=== PATIENT | female | born 1990 | race Caucasian/White ===

== ENCOUNTER 2017-10-14 05:34 | Outpatient (CLI) | payer MEDICAID ==
[~2017-10-14] VITALS: Ht 158.8 cm; Wt 70.3 kg
[2017-10-14] MEDS ORDERED: LEVO112T2 PO (11:57)
[2017-10-14] MEDS ORDERED: LINA72CA PO (11:57)
[2017-10-14] MEDS ORDERED: TOPI100T PO (11:57)
[2017-10-14] MEDS ORDERED: NORG1TAB15 PO (11:57)
[2017-10-19] MEDS ORDERED: OXYC-471 PO (12:27)
[2017-10-19] MEDS ORDERED: IBUP-1780 PO (12:29)
== END 2017-10-14 12:35 ==
LOC: PREOP 05:34
PROVIDERS: ATTEND Obstetrics & Gynecology
DX: Z01.818 Encounter for other preprocedural examination (principal); N80.6 Endometriosis in cutaneous scar; D64.9 Anemia, unspecified

== ENCOUNTER 2017-10-19 10:37 | Day surgery (SDC) | payer MEDICAID ==
[~2017-10-19] VITALS: Ht 158.8 cm; Wt 70.3 kg
[~2017-10-19 10:37] MED LIST: LEVO112T2 PO; LINA72CA PO; NORG1TAB15 PO; TOPI100T PO
[2017-10-19 10:41] VITALS: BP 144/83
--- OUTSIDE RECORDS SUMMARY | 2017-10-19 10:48 | XMS REPORT ---
Author Author Mary Garza [facility] Address [address] [place], [place] [id number] Care Team Providers Care Road Grader Name Role Phone Mary Garza PCP Unavailable WILBERT KOROMA PreferredProvider Unavailable Allergies and Adverse Reactions Name Reaction Notes NO KNOWN DRUG ALLERGIES Plan of Treatment Not available. 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 topiramate 50 mg oral tablet 03/29/2016 TAKE 1 TABLET BY MOUTH DAILY IN THE MORNING AND TAKE 1 AND 1/2 TABLETS DAILY AT BEDTIME CAN ADJUST DISCUSSED Tri-Sprintec (28) 0.18/0.215/0.25 mg-35 mcg (28) oral tablet 05/30/20162017 take 1 tablet by oral route once daily for 84 days topiramate 50 mg oral tablet 10/07/2016 TAKE 1 TABLET BY MOUTH EVERY MORNING AND 1 AND 1/2 TABLETS AT BEDTIME . DOSAGE CAN BE ADJUSTED DISCUSSED Name Start Date Expiration Date SIG Comments doxycycline hyclate 100 mg oral capsule 07/26/2010 08/05/2010 take 1 capsule ( 100 mg) by oral route every 12 hours for 10 days Tri-Sprintec (28) 0.18/0.215/0.25 mg-35 mcg (28) oral tablet take 1 tablet by oral route once daily Zithromax 250 mg oral tablet 09/02/2011 09/07/2011 take 2 tablets (500 mg) by oral route once daily for 1 day then 1 tablet (250 mg) by oral route once daily for 4 days Wellbutrin XL 150 mg oral tablet extended release 24 hr 01/29/2012 take 1 tablet (150 mg) by oral route once daily promethazine-codeine 6.25-10 mg/5 mL oral syrup 03/18/2012 take 5 milliliters by oral route every 6 hours as needed, not to exceed 30 mL in 24 hours Flonase 50 mcg/actuation nasal spray,suspension 03/18/2012 inhale 1 spray (50 mcg) in each nostril by intranasal route 2 times per day Zithromax Z-Jerrell 250 mg oral tablet 03/18/2012 03/23/2012 take 2 tablets ( 500 mg) by oral route once daily for 1 day then 1 tablet (250 mg) by oral route once daily for 4 days bupropion HCl 150 mg oral tablet extended release 24 hr 04/05/2012 05/05/2012 TAKE ONE TABLET BY MOUTH EVERY DAY Zithromax 250 mg oral tablet 06/07/2012 06/12/2012 take 2 tablets (500 mg) by oral route once daily for 1 day then 1 tablet (250 mg) by oral route once daily for 4 days levothyroxine 112 mcg oral tablet 12/17/2012 01/16/2013 TAKE ONE TABLET BY MOUTH EVERY DAY Tri-Sprintec (28) 0.18/0.215/0.25 mg-35 mcg (28) oral tablet 12/05/20132013 take 1 tablet by oral route once daily for 28 days Diflucan 150 mg oral tablet 04/17/2014 04/18/2014 take 1 tablet (150 mg) by oral route once for 1 day Zorvolex 35 mg oral capsule 05/30/2016 08/28/2016 take 1 capsule (35 mg) by oral route 3 times per day for 90 days Discontinued Name Start Date Discontinued Date SIG Comments triamcinolone acetonide 0.1 % topical cream 07/26/2010 09/02/2011 apply a thin layer to the affected area(s) by topical route 3 times per day ibuprofen 800 mg oral tablet 12/30/2012 01/13/2013 take 1 tablet (800 mg) by oral route 3 times per day with food prn pain Macrobid 100 mg oral capsule 04/10/2014 04/17/2014 take 1 capsule (100 mg) by oral route 2 times per day with food for 7 days cetirizine-pseudoephedrine 5-120 mg oral tablet extended release 12 hr 201504/08/2016 take 1 tablet by oral route 2 times per day Problem List Description Status Onset Hypothyroidism Active Abnormal Uterine Bleeding Active 09/2011 Migraine Active 04/19/2015 Headache Active 04/19/2015 Vital Signs Date Time BP-Sys(mm[Hg] BP-Mansi(mm[Hg]) HR(bpm) RR(rpm) Temp WT HT HC BMI BSA BMI Percentile O2 Sat(%) 05/30/2016 11:07:00 AM 119 mmHg 82 mmHg 79 bpm 97.3 F 157 lbs 62 in 28.72 kg/m2 1.76 m2 04/14/2016 3:36:00 PM 137 mmHg 64 mmHg 66 bpm 98.6 F 156 lbs 62 in 28.5325 kg/m 1.7594 m 04/08/2016 9:31:00 AM 124 mmHg 74 mmHg 69 bpm 98.1 F 156 lbs 62 in 28.53 kg/m2 1.76 m2 02/20/2016 10:33:00 AM 120 mmHg 72 mmHg 63 bpm 16 rpm 96.4 F 153 lbs 62 in 27.9838 kg/m 1.7424 m 100 % 07/02/2015 4:37:00 PM 63 bpm 20 rpm 97.6 F 160 lbs 63 in 28.34 kg /m2 1.80 m2 100 % 05/30/2015 3:47:00 PM 110 mmHg 80 mmHg 80 bpm 18 rpm 97.3 F 165 lbs 63 in 29.2281 kg/m 1.8239 m 100 % 04/18/2015 1:18:00 PM 100 mmHg 60 mmHg 65 bpm 18 rpm 97.5 F 165.75 lbs 63 in 29.36 kg/m2 1.83 m2 100 % 04/17/2014 3:17:00 PM 129 mmHg 79 mmHg 77 bpm 98.8 F 174 lbs 63 in 30.8224 kg/m 1.873 m 04/10/2014 11:42:00 AM 125 mmHg 83 mmHg 86 bpm 98.2 F 174 lbs 63 in 30.82 kg/m2 1.87 m2 01/13/2013 4:14:00 PM 127 mmHg 76 mmHg 64 bpm 97.7 F 170 lbs 63 in 30.1138 kg/m 1.8514 m 12/30/2012 11:29:00 AM 124 mmHg 70 mmHg 66 bpm 98 F 170 lbs 63 in 30.11 kg/m2 1.85 m2 12/09/2012 4:15:00 PM 120 mmHg 70 mmHg 62 bpm 98 F 170.125 lbs 63 in 30.136 kg/m 1.8521 m 10/28/2012 4:24:00 PM 125 mmHg 70 mmHg 62 bpm 96.7 F 169 lbs 63 in 29.94 kg/m2 1.85 m2 10/07/2012 9:12:00 AM 130 mmHg 74 mmHg 74 bpm 97.6 F 170 lbs 63 in 30.1138 kg/m 1.8514 m 06/07/2012 9:45:00 AM 108 mmHg 64 mmHg 90 bpm 18 rpm 96.5 F 177 lbs 63 in 31.35 kg/m2 1.89 m2 100 % 03/18/2012 10:01:00 AM 114 mmHg 74 mmHg 79 bpm 18 rpm 96.4 F 178 lbs 63 in 31.531 kg/m 1.8944 m 99 % 01/29/2012 8:33:00 AM 124 mmHg 80 mmHg 92 bpm 18 rpm 97.5 F 180 lbs 63 in 31.89 kg/m2 1.91 m2 98 % 11/04/2011 2:38:00 PM 118 mmHg 67 mmHg 71 bpm 18 rpm 97.8 F 173.5 lbs 63 in 30.7338 kg/m 1.8703 m 98 % 09/02/2011 2:43:00 PM 120 mmHg 74 mmHg 70 bpm 20 rpm 96.7 F 173 lbs 63 in 30.65 kg/m2 1.87 m2 98 % 07/26/2010 9:33:00 AM 110 mmHg 60 mmHg 102 bpm 22 rpm 96.4 F 158 lbs 63 in 27.9882 kg/m 1.7848 m 98 % Social History Name Description Comments Tobacco Former smoker Alcohol Current some day social use [place] [facility] [employer] History of Procedures Date Ordered Description Order Status 04/25/2015 12:00 AM LIPID PANEL Reviewed 04/25/2015 12:00 AM URINALYSIS AUTO W/O SCOPE Reviewed 04/25/2015 12:00 AM GENERAL HEALTH PANEL Reviewed 04/25/2015 8:39 AM URINALYSIS AUTO W/O SCOPE Reviewed 03/03/2016 12:00 AM Employment Physical Reviewed 04/08/2016 10:04 AM URINE TEST Reviewed 04/08/2016 12:00 AM US EXAM PELVIC COMPLETE Reviewed 04/11/2016 12:00 AM US EXAM PELVIC COMPLETE Reviewed 04/11/2016 12:00 AM TRANSVAGINAL US NON-OB Reviewed 06/02/2016 12:00 AM US EXAM PELVIC COMPLETE Reviewed 06/02/2016 12:00 AM TRANSVAGINAL US NON-OB Reviewed 05/30/2016 12:00 AM SPECIMEN HANDLING OFFICE-LAB Reviewed 05/30/2016 12:00 AM CYTOPATH C/V THIN LAYER Reviewed 05/30/2016 12:00 AM US EXAM PELVIC COMPLETE Reviewed 11/04/2011 12:00 AM COMPLETE CBC W/AUTO DIFF WBC Reviewed 11/04/2011 12:00 AM COMPREHEN METABOLIC PANEL Reviewed 11/04/2011 12:00 AM LIPID PANEL Reviewed 11/04/2011 12:00 AM FREE ASSAY (FT-3) Reviewed 11/04/2011 12:00 AM ASSAY THYROID STIM HORMONE Reviewed 11/04/2011 12:00 AM URINALYSIS NONAUTO W/SCOPE Reviewed 11/04/2011 12:00 AM URINE TEST Reviewed 11/05/2011 12:00 AM GENERAL HEALTH PANEL Reviewed 11/05/2011 12:00 AM LIPID PANEL Reviewed 11/05/2011 12:00 AM ASSAY OF THYROID (T3 OR T4) Reviewed 11/05/2011 12:00 AM CHORIONIC GONADOTROPIN ASSAY Reviewed 11/07/2016 12:00 AM URINALYSIS AUTO W/SCOPE Reviewed 12/23/2011 12:00 AM ASSAY THYROID STIM HORMONE Reviewed 12/23/2011 12:00 AM ASSAY OF FREE THYROXINE Reviewed 02/12/2012 12:00 AM ROUTINE VENIPUNCTURE Reviewed 02/12/2012 12:00 AM CHORIONIC GONADOTROPIN ASSAY Reviewed 10/07/2012 12:00 AM ASSAY OF GONADOTROPIN (FSH) Reviewed 10/07/2012 12:00 AM ASSAY OF PROLACTIN Reviewed 10/07/2012 12:00 AM ASSAY THYROID STIM HORMONE Reviewed 10/07/2012 12:00 AM CYTOPATH TBS C/V MANUAL Reviewed 10/07/2012 12:00 AM SPECIMEN HANDLING OFFICE-LAB Reviewed 10/07/2012 12:00 AM CHYLMD TRACH DNA AMP PROBE Reviewed 10/07/2012 12:00 AM N.GONORRHOEAE DNA AMP PROB Reviewed 10/28/2012 12:00 AM URINE TEST Reviewed 10/28/2012 12:00 AM INSERT INTRAUTERINE DEVICE Reviewed 12/22/2012 12:00 AM US EXAM PELVIC COMPLETE Reviewed 12/30/2012 12:00 AM URINALYSIS AUTO W/SCOPE Reviewed 12/30/2012 12:00 AM CHYLMD TRACH DNA AMP PROBE Reviewed 12/30/2012 12:00 AM N.GONORRHOEAE DNA AMP PROB Reviewed 01/13/2013 12:00 AM REMOVE INTRAUTERINE DEVICE Reviewed 04/10/2014 12:00 AM URINALYSIS NONAUTO W/SCOPE Reviewed 04/17/2014 12:00 AM US EXAM PELVIC COMPLETE Reviewed 04/17/2014 12:00 AM SPECIMEN HANDLING OFFICE-LAB Reviewed 04/17/2014 12:00 AM CYTOPATH C/V THIN LAYER Reviewed 07/26/2010 12:00 AM TD VACCINE NO PRSRV 7/> IM Reviewed 07/26/2010 12:00 AM IMMUNIZATION ADMIN Reviewed Results Summary Date and Description Results 11/05/2011 2:54 PM WBC 7.4 RBC 4.91 HGB 13.90 g/dLHCT 41.0 %MCV 84.0 fLMCH 28.30 pgMCHC 33.90 g/dLRDW SD 38 RDW CV 12.60 %MPV 10.20 fLPLT 282 NRBC# 0.00 NRBC% 0.0 %NEUT 54.0 %%LYMP 32.10 %%MONO 8.30 %%EOS 5.30 %%BASO 0.30 %#NEUT 3.97 #LYMP 2.36 #MONO 0.61 #EOS 0.39 #BASO 0.02 MANUAL DIFF NOT IND GLUCOSE 104.0 mg/dLSODIUM 140.0 mmol/LPOTASSIUM 4.20 mmol/LCHLORIDE 109.0 mmol/LCO2 22.0 mmol/LBUN 13.0 mg/dLCREATININE 0.70 mg/dLSGOT/AST 14.0 IU/LSGPT/ALT 19.0 IU /LALK PHOS 71.0 IU/LTOTAL PROTEIN 7.0 g/dLALBUMIN 4.30 g/dLTOTAL BILI 0.40 mg/ dLCALCIUM 9.20 mg/dLAGE 21 GFR NonAA 104 GFR AA 126 eGFR 60 eGFR AA* 60 TRIGLYCERIDES 99.0 mg/dLCHOLESTEROL 190.0 mg/dLHDL 57.0 mg/dLTOT CHOL/HDL 3.3 LDL (CALC) 113.0 mg/dLT3 TOTAL 86.0 ng/dLTSH < 0.06 mIU/LRECHECKED VERIFIED BY REPEAT ANALYSIS TEST NEGATIVE FREE T4 1.01 12/23/2011 1:39 PM FREE T4 1.61 TSH 0.320 uIU/mL 02/12/2012 2:53 PM TEST NEGATIVE 10/07/2012 10:24 AM TSH 1.020 uIU/mLFSH 11.0 mIU/mL 12/30/2012 4:09 PM COLOR YELLOW APPEARANCE CLEAR SPEC GRAV 1.025 pH 6.0 PROTEIN NEGATIVE GLUCOSE NEGATIVE KETONE NEGATIVE BILIRUBIN NEGATIVE BLOOD NEGATIVE NITRITE NEGATIVE LEUK SCREEN NEGATIVE WBC/HPF RARE RBC/HPF NEGATIVE CASTS/LPF NEGATIVE CRYSTALS NEGATIVE MUCOUS THRDS NEGATIVE BACTERIA FEW EPITH CELLS FEW SQUAMOUS TRICHOMONAS NEGATIVE YEAST NEGATIVE CULT SET UP? NO 04/10/2014 3:51 PM COLOR YELLOW APPEARANCE HAZY SPEC GRAV <=1.005 pH 6.0 PROTEIN NEGATIVE GLUCOSE NEGATIVE KETONE NEGATIVE BILIRUBIN NEGATIVE BLOOD LARGE NITRITE NEGATIVE LEUK SCREEN SMALL WBC/HPF 10-20 RBC/HPF 0-5 CASTS/LPF NEGATIVE CRYSTALS NEGATIVE MUCOUS THRDS NEGATIVE BACTERIA 2++ EPITH CELLS 1+ SQUAMOUS TRICHOMONAS NEGATIVE YEAST NEGATIVE CULT SET UP? YES 04/25/2015 8:39 AM Clarity Ur clear Color Ur light yellow Glucose Ur-sCnc neg Bilirub Ur Ql Strip neg Ketones Ur Ql Strip neg Sp Gr Ur Qn 1.010 Hgb Ur Ql Strip neg pH Ur-LsCnc 7.0 Prot Ur Ql Strip neg Urobilinogen Ur-mCnc 0.2 Nitrite Ur Ql Strip neg WBC Est Ur Ql Strip neg 04/25/2015 3:26 PM GLUCOSE 94.0 mg/dLSODIUM 137.0 mmol/LPOTASSIUM 4.40 mmol/ LCHLORIDE 108.0 mmol/LCO2 20.0 mmol/LBUN 12.0 mg/dLCREATININE 0.70 mg/dLSGOT/ AST 9.0 IU/LSGPT/ALT 11.0 IU/LALK PHOS 46.0 IU/LTOTAL PROTEIN 6.60 g/dLALBUMIN 4.30 g/dLTOTAL BILI 0.50 mg/dLCALCIUM 9.10 mg/dLAGE 25 GFR NonAA 100 GFR AA 121 eGFR >60 mL/min/1.73meGFR AA* >60 TSH 0.150 uIU/mLTRIGLYCERIDES 202.0 mg/ dLCHOLESTEROL 197.0 mg/dLHDL 52.0 mg/dLTOT CHOL/HDL 3.8 LDL (CALC) 105.0 mg/ dLFREE T4 1.48 WBC 7.4 RBC 4.62 HGB 13.50 g/dLHCT 40.30 %MCV 87.0 fLMCH 29.20 pgMCHC 33.50 g/dLRDW SD 41 RDW CV 12.60 %MPV 10.30 fLPLT 266 NRBC# 0.00 NRBC% 0.0 %NEUT 63.60 %%LYMP 27.60 %%MONO 5.80 %%EOS 2.70 %%BASO 0.30 %#NEUT 4.69 # LYMP 2.04 #MONO 0.43 #EOS 0.20 #BASO 0.02 MANUAL DIFF NOT IND 02/20/2016 9:45 AM WBC 6.5 RBC 4.61 HGB 13.30 g/dLHCT 40.30 %MCV 87.0 fLMCH 28.90 pgMCHC 33.0 g/dLRDW SD 40 RDW CV 12.50 %MPV 8.90 fLPLT 264 NRBC# 0.00 NRBC % 0.0 GLUCOSE 100.0 mg/dLSODIUM 140.0 mmol/LPOTASSIUM 4.30 mmol/LCHLORIDE 110.0 mmol/LCO2 21.0 mmol/LBUN 14.0 mg/dLCREATININE 0.90 mg/dLSGOT/AST 12.0 IU/LSGPT/ ALT 7.0 IU/LALK PHOS 51.0 IU/LTOTAL PROTEIN 7.40 g/dLALBUMIN 4.20 g/dLTOTAL BILI 0.50 mg/dLCALCIUM 9.10 mg/dLAGE 26 GFR NonAA 75 GFR AA 91 eGFR >60 mL/min/ 1.73meGFR AA* >60 TRIGLYCERIDES 202.0 mg/dLCHOLESTEROL 217.0 mg/dLHDL 59.0 mg/ dLTOT CHOL/HDL 3.7 LDL (CALC) 118.0 mg/dLVaricella Zoster IgG 1456.0 IndexRubella Antibodies, IgG 15.50 IndexRubeola Ab, IgG >300.0 IndexMumps Abs, IgG 91.5 AU/ml 02/20/2016 9:49 AM COLOR YELLOW APPEARANCE CLEAR SPEC GRAV 1.025 pH 6.0 PROTEIN NEGATIVE GLUCOSE NEGATIVE mg/dLKETONE NEGATIVE BILIRUBIN NEGATIVE BLOOD NEGATIVE NITRITE NEGATIVE LEUK SCREEN MODERATE MICRO IND? SEE BELOW WBC/HPF 10- 20 RBC/HPF RARE CASTS/LPF NEGATIVE /LPFCRYSTALS NEGATIVE MUCOUS THRDS NEGATIVE BACTERIA FEW EPITH CELLS 2++ SQUAMOUS /HPFTRICHOMONAS NEGATIVE YEAST NEGATIVE 04/08/2016 10:04 AM Test, Urine negative 11/07/2016 9:39 AM COLOR YELLOW APPEARANCE CLEAR SPEC GRAV <=1.005 pH 5.5 PROTEIN NEGATIVE GLUCOSE NEGATIVE mg/dLKETONE NEGATIVE BILIRUBIN NEGATIVE BLOOD SMALL NITRITE NEGATIVE LEUK SCREEN SMALL MICRO INDICATED? SEE BELOW WBC/HPF RARE RBC/HPF NEGATIVE CASTS/LPF NEGATIVE /LPFCRYSTALS NEGATIVE MUCOUS THRDS NEGATIVE BACTERIA NEGATIVE EPITH CELLS NEGATIVE /HPFTRICHOMONAS NEGATIVE YEAST NEGATIVE CULT SET UP? 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 07/26/2010 02/15/2008 999 History of Past Illness Name Date of Onset Comments Hypothyroidism Abnormal Uterine Bleeding 09/2011 Migraine 04/19/2015 Headache 04/19/2015 Insect bite, Infected Jul 26 2010 9:36AM Sinusitis, Acute Sep 02 2011 2:50PM Pharyngitis, Acute Sep 02 2011 2:50PM Hypothyroidism Nov 04 2011 2:42PM Fatigue Nov 04 2011 2:42PM Weight Gain Nov 04 2011 2:42PM Hypothyroidism, Acquired Nov 05 2011 8:17AM Fatigue Nov 05 2011 8:17AM Hypothyroidism, Acquired Dec 23 2011 1:10PM Depression Jan 29 2012 8:35AM Amenorrhea, Rule Out Feb 12 2012 8:13AM Upper Respiratory Infection Mar 18 2012 10:00AM Upper Respiratory Infection Jun 07 2012 9:47AM Gynecological Exam Oct 07 2012 9:26AM Abnormal Uterine Bleeding Oct 07 2012 9:26AM Special investigations and examinations; examination or test; examination or test, negative result Oct 28 2012 4:56PM IUD insertion Oct 28 2012 4:55PM IUD Check/Removal/Management/Reinsertion Dec 09 2012 4:20PM Pelvic Pain Dec 13 2012 11:26AM Pelvic Pain Dec 30 2012 11:33AM Contraceptive Counseling Dec 30 2012 11:33AM Pelvic Pain Dec 30 2012 12:26PM IUD removal Jan 13 2013 4:25PM Urinary Tract Infection Apr 10 2014 11:45AM Dysuria Apr 10 2014 11:45AM Pelvic Pain Apr 12 2014 9:36AM Ovarian Cyst Apr 12 2014 9:36AM Routine gynecological examination Apr 17 2014 3:19PM Candidal Vaginitis Apr 17 2014 3:19PM Contraception, Oral Prescription Apr 17 2014 3:19PM Contraceptive management Apr 17 2014 3:19PM Headache Apr 18 2015 1:22PM Migraine Apr 18 2015 1:22PM Hypothyroidism, Acquired Apr 25 2015 8:28AM Dysuria Apr 25 2015 8:28AM Headache Apr 25 2015 8:28AM Dysuria Apr 25 2015 8:39AM Headache May 30 2015 3:49PM Migraine May 30 2015 3:49PM Hypothyroidism May 30 2015 3:49PM Headache Jul 02 2015 4:38PM Migraine Jul 02 2015 4:38PM Hypothyroidism Jul 02 2015 4:38PM Pre-employment exam, encounter for Feb 20 2016 10:34AM Adnexal tenderness, right Apr 08 2016 9:37AM Female pelvic pain Apr 08 2016 10:06AM Cyst of ovary, right Apr 14 2016 3:38PM Routine gynecological examination May 30 2016 11:13AM Pelvic and perineal pain May 30 2016 11:27AM Other chronic pain May 30 2016 11:27AM Contraceptive management May 30 2016 11:13AM Pelvic and perineal pain May 30 2016 11:13AM Other chronic pain May 30 2016 11:13AM Dysuria Nov 07 2016 9:12AM Payers Insurance Name Company Name Plan Name Plan Number Policy Number Policy Group Number Start Date [employer] [facility] [id number] N/A [employer] [facility] [id number] Monday, 2010 [employer] [facility] [id number] N/A [facility] [id number] December [facility] [id number] N/A History of Encounters Visit Date Visit Type Provider 05/30/2016 Office visit Mary Garza [employer] EXECUTIVE 04/14/2016 Office visit Mary Garza [employer] ACCOUNT EXECUTIVE 04/08/2016 Office visit Mary MFinn Garza [employer]ES ACCOUNT EXECUTIVE 02/20/2016 Office visit Dougie Rahman [employer] ACCOUNT EXECUTIVE 07/02/2015 Office visit WILBERT KOROMA [employer]ES ACCOUNT EXECUTIVE 05/30/2015 Office visit WILBERT KOROMA COMMER[employer]ES ACCOUNT EXECUTIVE 04/25/2015 Laboratory WILBERT KOROMA COMMERCIAL [employer]ES ACCOUNT EXECUTIVE 04/18/2015 Office visit WILBERT KOROMA COMMERCIAL LINES ACCOUNT EXECUTIVE 04/17/2014 Office visit Mary Garza [employer]ER[employer]ES ACCOUNT EXECUTIVE 04/10/2014 Office visit Mary Garza COMMERCIAL [employer]ES ACCOUNT EXECUTIVE 01/13/2013 Office visit Pasquale Pagan MD 12/30/2012 Office visit Pasquale Pagan MD 12/09/2012 Office visit Mary Garza [employer] ACCOUNT EXECUTIVE 10/28/2012 Office visit Pasquale Pagan MD 10/07/2012 Office visit Pasquale Pagan MD 06/07/2012 Office visit WILBERT KOROMA [employer] ACCOUNT EXECUTIVE 03/18/2012 Office visit WILBERT KOROMA [employer]ER[employer]ES ACCOUNT EXECUTIVE 02/12/2012 Laboratory WILBERT KOROMA [employer] ACCOUNT EXECUTIVE 01/29/2012 Office visit WILBERT KOROMA [employer]ER[employer]ES ACCOUNT EXECUTIVE 12/23/2011 Laboratory WILBERT KOROMA [employer]ERCIAL [employer]ES ACCOUNT EXECUTIVE 11/05/2011 Laboratory WILBERT KOROMA COMMERCIAL [employer]ES ACCOUNT EXECUTIVE 11/04/2011 Office visit WILBERT KOROMA COMMERCIAL LINES ACCOUNT EXECUTIVE 09/02/2011 Office visit WILBERT KOROMA COMMERCIAL LINES ACCOUNT EXECUTIVE 07/26/2010 Office visit Wilbert Koroma COMMERCIAL LINES ACCOUNT EXECUTIVE
--- OUTSIDE RECORDS SUMMARY | 2017-10-19 10:48 | XMS REPORT ---
Author Author Lilian Kay [facility] Address [address] [facility] [address] [place], [place] [id number] Care Team Providers Care Dry Paste Supervisor Name Role Phone Lilian Kay PCP WILBERT KOROMA PreferredProvider Allergies and Adverse Reactions Name Reaction Notes NO KNOWN DRUG ALLERGIES Plan of Treatment Not available. Medications Active Name Start Date Estimated Completion Date SIG Comments topiramate 50 mg oral tablet 05/30/2015 take 1 tablet (50 mg) PO QAM and 1.5 tab (75mg) QHS can adjust as discussed topiramate 50 mg oral tablet 07/30/2015 TAKE 1 TABLET BY MOUTH DAILY IN THE MORNING AND TAKE 1 AND 1/2 TABLETS DAILY AT BEDTIME CAN ADJUST DISCUSSED topiramate 50 mg oral tablet 03/29/2016 TAKE 1 TABLET BY MOUTH DAILY IN THE MORNING AND TAKE 1 AND 1/2 TABLETS DAILY AT BEDTIME CAN ADJUST DISCUSSED Tri-Sprintec (28) 0.18/0.215/0.25 mg-35 mcg (28) oral tablet 05/30/20162017 take 1 tablet by oral route once daily for 84 days cetirizine-pseudoephedrine 5-120 mg oral tablet extended release 12 hr 2016 take 1 tablet by oral route 2 times per day Maxalt-PHYSICAL THERAPIST CLINIC DIRECTOR 10 mg oral tablet,disintegrating 01/07/2017 take 1 tablet (10 mg) and place on top of the tongue where it will dissolve, then swallow by oral route once, may repeat at 2 hour intervals; do not exceed 30 mg in 24 hours topiramate 50 mg oral tablet 01/07/2017 TAKE 1 TABLET BY MOUTH EVERY MORNING AND 1 AND 1/2 TABLETS AT BEDTIME . DOSAGE CAN BE ADJUSTED DISCUSSED fluoxetine 20 mg oral capsule 01/08/2017 take 1 capsule (20 mg) by oral route once daily in the evening Trulance 3 mg oral tablet 01/27/2017 take 1 tablet (3 mg) by oral route once daily Protonix 40 mg oral tablet,delayed release (DR/EC) 02/16/2017 take 1 tablet (40 mg) by oral route once daily for 30 days Carafate 1 gram oral tablet 02/16/2017 take 1 tablet (1 gram) by oral route 4 times per day on an empty stomach 1 hour before meals and at bedtime for 14 days levothyroxine 137 mcg oral tablet 04/15/2017 take 1 tablet (137 mcg) by oral route once daily for 30 days Name Start Date Expiration Date SIG Comments [...] 3 times per day for 90 days Augmentin 875-125 mg oral tablet 12/18/2016 take 1 tablet by oral route every 12 hours for 7 days Bactrim DS 800-160 mg oral tablet 01/07/2017 01/17/2017 take 1 tablet by oral route every 12 hours for 10 days Discontinued Name Start Date Discontinued Date SIG Comments triamcinolone acetonide 0.1 % topical cream 07/26/2010 09/02/2011 apply a thin layer to the affected area(s) by topical route 3 times per day ibuprofen 800 mg oral tablet 12/30/2012 01/13/2013 take 1 tablet (800 mg) by oral route 3 times per day with food prn pain levothyroxine 112 mcg oral tablet 03/24/2013 TAKE ONE TABLET BY MOUTH EVERY DAY levothyroxine 112 mcg oral tablet 04/25/2013 TAKE ONE TABLET BY MOUTH EVERY DAY Macrobid 100 mg oral capsule 04/10/2014 04/17/2014 take 1 capsule (100 mg) by oral route 2 times per day with food for 7 days cetirizine-pseudoephedrine 5-120 mg oral tablet extended release 12 hr 201504/08/2016 take 1 tablet by oral route 2 times per day levothyroxine 150 mcg oral tablet 01/07/2017 04/15/2017 take 1 tablet (150 mcg) by oral route once daily changed to levothyroxine 137mcg Problem List Description Status Onset Hypothyroidism Active Abnormal uterine bleeding Active 09/2011 Migraine Active 04/19/2015 Headache Active 04/19/2015 Vital Signs Date Time BP-Sys(mm[Hg] BP-Mansi(mm[Hg]) HR(bpm) RR(rpm) Temp WT HT HC BMI BSA BMI Percentile O2 Sat(%) 02/16/2017 2:24:00 PM 129 mmHg 70 mmHg 75 bpm 18 rpm 98.8 F 153.125 lbs 62 in 28.01 kg/m2 1.74 m2 100 % 01/19/2017 3:56:00 PM 118 mmHg 76 mmHg 88 bpm 16 rpm 99.8 F 155.25 lbs 100 % 01/07/2017 5:04:00 PM 118 mmHg 76 mmHg 76 bpm 16 rpm 98.7 F 158.75 lbs 62 in 29.0355 kg/m 1.77 m2 99 % 12/18/2016 2:23:00 PM 120 mmHg 70 mmHg 71 bpm 16 rpm 97.2 F 156.312 lbs 62 in 28.59 kg/m2 1.7611 m 100 % 05/30/2016 11:07:00 AM 119 mmHg 82 mmHg 79 bpm 97.3 F 157 lbs 62 in 28.7154 kg/m 1.76 m2 04/14/2016 3:36:00 PM 137 mmHg 64 mmHg 66 bpm 98.6 F 156 lbs 62 in 28.53 kg/m2 1.7594 m 04/08/2016 9:31:00 AM 124 mmHg 74 mmHg 69 bpm 98.1 F 156 lbs 62 in 28.5325 kg/m 1.76 m2 02/20/2016 10:33:00 AM 120 mmHg 72 mmHg 63 bpm 16 rpm 96.4 F 153 lbs 62 in 27.98 kg/m2 1.7424 m 100 % 07/02/2015 4:37:00 PM 63 bpm 20 rpm 97.6 F 160 lbs 63 in 28.3424 kg/m 1.80 m2 100 % 05/30/2015 3:47:00 PM 110 mmHg 80 mmHg 80 bpm 18 rpm 97.3 F 165 lbs 63 in 29.23 kg/m2 1.8239 m 100 % 04/18/2015 1:18:00 PM 100 mmHg 60 mmHg 65 bpm 18 rpm 97.5 F 165.75 lbs 63 in 29.361 kg/m 1.8281 m 100 % 04/17/2014 3:17:00 PM 129 mmHg 79 mmHg 77 bpm 98.8 F 174 lbs 63 in 30.82 kg/m2 1.87 m2 04/10/2014 11:42:00 AM 125 mmHg 83 mmHg 86 bpm 98.2 F 174 lbs 63 in 30.8224 kg/m 1.873 m 01/13/2013 4:14:00 PM 127 mmHg 76 mmHg 64 bpm 97.7 F 170 lbs 63 in 30.11 kg/m2 1.85 m2 12/30/2012 11:29:00 AM 124 mmHg 70 mmHg 66 bpm 98 F 170 lbs 63 in 30.1138 kg/m 1.8514 m 12/09/2012 4:15:00 PM 120 mmHg 70 mmHg 62 bpm 98 F 170.125 lbs 63 in 30.14 kg/m2 1.85 m2 10/28/2012 4:24:00 PM 125 mmHg 70 mmHg 62 bpm 96.7 F 169 lbs 63 in 29.9367 kg/m 1.8459 m 10/07/2012 9:12:00 AM 130 mmHg 74 mmHg 74 bpm 97.6 F 170 lbs 63 in 30.11 kg/m2 1.85 m2 06/07/2012 9:45:00 AM 108 mmHg 64 mmHg 90 bpm 18 rpm 96.5 F 177 lbs 63 in 31.3538 kg/m 1.8891 m 100 % 03/18/2012 10:01:00 AM 114 mmHg 74 mmHg 79 bpm 18 rpm 96.4 F 178 lbs 63 in 31.53 kg/m2 1.89 m2 99 % 01/29/2012 8:33:00 AM 124 mmHg 80 mmHg 92 bpm 18 rpm 97.5 F 180 lbs 63 in 31.8852 kg/m 1.905 m 98 % 11/04/2011 2:38:00 PM 118 mmHg 67 mmHg 71 bpm 18 rpm 97.8 F 173.5 lbs 63 in 30.73 kg/m2 1.87 m2 98 % 09/02/2011 2:43:00 PM 120 mmHg 74 mmHg 70 bpm 20 rpm 96.7 F 173 lbs 63 in 30.6453 kg/m 1.8676 m 98 % 07/26/2010 9:33:00 AM 110 mmHg 60 mmHg 102 bpm 22 rpm 96.4 F 158 lbs 63 in 27.99 kg/m2 1.78 m2 98 % Social History Name Description Comments Tobacco Former smoker Alcohol Current some day social use [facility] [employer] [facility] History of Procedures Date Ordered Description Order [...] 12:00 AM ASSAY OF FREE THYROXINE Reviewed 01/08/2017 12:00 AM ASSAY THYROID STIM HORMONE Reviewed 01/08/2017 12:00 AM ASSAY OF FREE THYROXINE Reviewed 02/12/2012 12:00 AM ROUTINE VENIPUNCTURE Reviewed 02/12/2012 12:00 AM CHORIONIC GONADOTROPIN ASSAY Reviewed 02/16/2017 3:31 PM URINALYSIS AUTO W/O SCOPE Reviewed 02/16/2017 3:31 PM URINE TEST Reviewed 04/13/2017 12:00 AM ASSAY THYROID STIM HORMONE Returned 10/07/2012 12:00 AM ASSAY OF GONADOTROPIN (FSH) [...] PM FREE T4 1.61 TSH 0.320 uIU/mL 10/07/2012 10:24 AM TSH 1.020 uIU/mLFSH 11.0 [...] Ur Ql Strip neg 04/25/2015 3:26 PM TRIGLYCERIDES 202.0 mg/dLCHOLESTEROL 197.0 mg/dLHDL 52.0 mg/ dLTOT CHOL/HDL 3.8 LDL (CALC) 105.0 mg/dLWBC 7.4 RBC 4.62 HGB 13.50 g/dLHCT 40.30 %MCV 87.0 fLMCH 29.20 pgMCHC 33.50 g/dLRDW SD 41 RDW CV 12.60 %MPV 10.30 fLPLT 266 NRBC# 0.00 NRBC% 0.0 %NEUT 63.60 %%LYMP 27.60 %%MONO 5.80 %%EOS 2.70 % %BASO 0.30 %#NEUT 4.69 #LYMP 2.04 #MONO 0.43 #EOS 0.20 #BASO 0.02 MANUAL DIFF NOT IND 04/08/2016 10:04 AM Test, Urine negative 11/07/2016 9:39 AM COLOR YELLOW APPEARANCE CLEAR SPEC GRAV <=1.005 pH 5.5 PROTEIN NEGATIVE GLUCOSE NEGATIVE mg/dLKETONE NEGATIVE BILIRUBIN NEGATIVE BLOOD SMALL NITRITE NEGATIVE [place] SCREEN SMALL MICRO INDICATED? SEE BELOW WBC/HPF RARE RBC/HPF NEGATIVE CASTS/LPF NEGATIVE /LPFCRYSTALS NEGATIVE MUCOUS THRDS NEGATIVE BACTERIA NEGATIVE EPITH CELLS NEGATIVE /HPFTRICHOMONAS NEGATIVE YEAST NEGATIVE CULT SET UP? YES 02/16/2017 3:31 PM Color Ur lt. yellow Glucose Ur-sCnc neg Bilirub Ur Ql Strip neg Ketones Ur Ql Strip neg Sp Gr Ur Qn 1.015 Hgb Ur Ql Strip neg pH Ur- LsCnc 6.5 Prot Ur Ql Strip neg Urobilinogen Ur-mCnc 0.2eu/dl Nitrite Ur Ql Strip neg WBC Est Ur Ql Strip small Test, Urine neg History Of Immunizations Name Date Admin Mfg Name Mfg Code Trade Name Lot# Route Inj Vis Given Vis Pub CVX Td 07/26/2010 sanofi pasteur [facility] DECAVAC [id number] Intramuscular Right Deltoid 07/26/2010 02/15/2008 999 History of Past Illness Name Date of Onset Comments Hypothyroidism Abnormal uterine bleeding 09/2011 Migraine 04/19/2015 Headache 04/19/2015 Insect bite, [...] 2016 11:13AM Dysuria Nov 07 2016 9:12AM Acute non-recurrent maxillary sinusitis Dec 18 2016 2:25PM Migraine Jan 07 2017 5:07PM Hypothyroidism Jan 07 2017 5:07PM Impetigo Jan 07 2017 5:07PM Allergic rhinitis Jan 07 2017 5:07PM Migraine Jan 19 2017 3:59PM Hypothyroidism Jan 19 2017 3:59PM Constipation Jan 19 2017 3:59PM Epigastric pain Feb 16 2017 2:25PM Nausea Feb 16 2017 2:25PM Chronic idiopathic constipation Feb 16 2017 2:25PM Gastroesophageal reflux disease without esophagitis Feb 16 2017 2:25PM Hypothyroid Apr 13 2017 3:20PM Payers Insurance Name Company Name Plan Name Plan Number Policy Number Policy Group Number Start Date [employer] [place] [id number] N/A [employer] [place] [id number] Monday, 2010 [employer] [place] [id number] N/A [facility] [id number] December [facility] Occupational Medicine [id number] N/A History of Encounters Visit Date Visit Type Provider 02/16/2017 Office visit Lilian Kay NATURAL DEVELOPER 01/19/2017 Office visit WILBERT KOROMA NATURAL DEVELOPER 01/07/2017 Office visit WILBERT KOROMA NATURAL DEVELOPER 12/18/2016 Office visit Dougie Rahman NATURAL DEVELOPER 05/30/2016 Office visit Mary Garza NATURAL DEVELOPER 04/14/2016 Office visit Mary Garza NATURAL DEVELOPER 04/08/2016 Office visit Mary Garza NATURAL DEVELOPER 02/20/2016 Office visit Dougie Rahman NATURAL DEVELOPER 07/02/2015 Office visit WILBERT KOROMA NATURAL DEVELOPER 05/30/2015 Office visit WILBERT KOROMA NATURAL DEVELOPER 04/25/2015 Laboratory WILBERT KOROMA NATURAL DEVELOPER 04/18/2015 Office visit WILBERT KOROMA NATURAL DEVELOPER 04/17/2014 Office visit Mary Garza NATURAL DEVELOPER 04/10/2014 Office visit Mary Garza NATURAL DEVELOPER 01/13/2013 Office visit Pasquale Pagan MD 12/30/2012 Office visit Pasquale Pagan MD 12/09/2012 Office visit Mary Garza NATURAL DEVELOPER 10/28/2012 Office visit Pasquale Pagan MD 10/07/2012 Office visit Pasquale Pagan MD 06/07/2012 Office visit WILEBRT KOROMA NATURAL DEVELOPER 03/18/2012 Office visit WILBERT KOROMA NATURAL DEVELOPER 02/12/2012 Laboratory WILBERT KOROMA NATURAL DEVELOPER 01/29/2012 Office visit WILBERT KOROMA NATURAL DEVELOPER 12/23/2011 Laboratory WILBERT KOROMA NATURAL DEVELOPER 11/05/2011 Laboratory WILBERT KOROMA NATURAL DEVELOPER 11/04/2011 Office visit WILBERT KOROMA NATURAL DEVELOPER 09/02/2011 Office visit WILBERT KOROMA NATURAL DEVELOPER 07/26/2010 Office visit Wilbert Koroma APRN
--- OUTSIDE RECORDS SUMMARY | 2017-10-19 10:49 | XMS REPORT ---
Author Author WILBERT KOROMA [facility] Address [address] [place], [place] [id number] Care Team Providers Care Wire Dropper Name Role Phone WILBERT KOROMA PCP Unavailable WILBERT KOROMA PreferredProvider Unavailable Allergies and Adverse Reactions Name Reaction Notes NO KNOWN DRUG ALLERGIES Plan of Treatment Planned Activity Comments Planned Date Planned Time Plan/Goal TSH 01/08/2017 12:00 AM Free thyroxine (FT4) measurement 01/08/2017 12:00 AM Medications Active Name Start Date Estimated Completion Date SIG Comments levothyroxine 112 mcg oral tablet 03/24/2013 TAKE ONE TABLET BY MOUTH EVERY DAY levothyroxine 112 mcg oral tablet 04/25/2013 TAKE ONE TABLET BY MOUTH EVERY DAY topiramate 50 mg oral tablet 05/30/2015 take [...] day levothyroxine 150 mcg oral tablet 01/07/2017 take 1 tablet (150 mcg) by oral route once daily Maxalt-ENVIRONMENTAL HEALTH SAFETY MANAGER 10 mg oral tablet,disintegrating 01/07/2017 take 1 [...] (3 mg) by oral route once daily Name Start Date Expiration Date SIG Comments [...] HC BMI BSA BMI Percentile O2 Sat(%) 01/19/2017 3:56:00 PM 118 mmHg 76 mmHg 88 bpm 16 rpm 99.8 F 155.25 lbs 100 % 01/07/2017 5:04:00 PM 118 mmHg 76 mmHg 76 bpm 16 rpm 98.7 F 158.75 lbs 62 in 29.0355 kg/m 1.7748 m 99 % 12/18/2016 2:23:00 PM 120 mmHg 70 mmHg 71 bpm 16 rpm 97.2 F 156.312 lbs 62 in 28.59 kg/m2 1.76 m2 100 % 05/30/2016 11:07:00 AM 119 mmHg 82 mmHg 79 bpm 97.3 F 157 lbs 62 in 28.7154 kg/m 1.765 m 04/14/2016 3:36:00 PM 137 mmHg 64 mmHg 66 bpm 98.6 F 156 lbs 62 in 28.53 kg/m2 1.76 m2 04/08/2016 9:31:00 AM 124 mmHg 74 mmHg 69 bpm 98.1 F 156 lbs 62 in 28.5325 kg/m 1.7594 m 02/20/2016 10:33:00 AM 120 mmHg 72 mmHg 63 bpm 16 rpm 96.4 F 153 lbs 62 in 27.98 kg/m2 1.74 m2 100 % 07/02/2015 4:37:00 PM 63 bpm 20 rpm 97.6 F 160 lbs 63 in 28.3424 kg/m 1.7961 m 100 % 05/30/2015 3:47:00 PM 110 mmHg 80 mmHg 80 bpm 18 rpm 97.3 F 165 lbs 63 in 29.23 kg/m2 1.82 m2 100 % 04/18/2015 1:18:00 PM 100 mmHg [...] smoker Alcohol Current some day social use [facility] [employer] History of Procedures Date Ordered Description Order [...] Vis Given Vis Pub CVX Td 07/26/2010 [id number] Intramuscular Right Deltoid 07/26/2010 02/15/2008 999 History [...] 2017 3:59PM Constipation Jan 19 2017 3:59PM Payers Insurance Name Company Name Plan Name Plan Number Policy Number Policy Group Number Start Date [employer] [place] [id number] N/A [employer] [place] [id number] Monday, 2010 [employer] [place] [id number] N/A [facility] [id number] December [facility] Occupational Medicine [id number] N/A History of Encounters Visit Date Visit Type Provider 01/19/2017 Office visit WILBERT KOROMA ASSOCIATE PROGRAM MANAGER 01/07/2017 Office visit WILBERT KOROMA ASSOCIATE PROGRAM MANAGER 12/18/2016 Office visit Dougie Rahman ASSOCIATE PROGRAM MANAGER 05/30/2016 Office visit Mary Garza ASSOCIATE PROGRAM MANAGER 04/14/2016 Office visit Mary Garza ASSOCIATE PROGRAM MANAGER 04/08/2016 Office visit Mary Garza ASSOCIATE PROGRAM MANAGER 02/20/2016 Office visit Dougie Rahman ASSOCIATE PROGRAM MANAGER 07/02/2015 Office visit WILBERT KOROMA ASSOCIATE PROGRAM MANAGER 05/30/2015 Office visit WILBERT KOROMA ASSOCIATE PROGRAM MANAGER 04/25/2015 Laboratory WILBERT KOROMA ASSOCIATE PROGRAM MANAGER 04/18/2015 Office visit WILBERT KOROMA ASSOCIATE PROGRAM MANAGER 04/17/2014 Office visit Mary Garza ASSOCIATE PROGRAM MANAGER 04/10/2014 Office visit Mary Garza ASSOCIATE PROGRAM MANAGER 01/13/2013 Office visit Pasquale Pagan MD 12/30/2012 Office visit Pasquale Pagan MD 12/09/2012 Office visit Mary Garza ASSOCIATE PROGRAM MANAGER 10/28/2012 Office visit Pasquale Pagan MD 10/07/2012 Office visit Pasquale Pagan MD 06/07/2012 Office visit WILBERT KOROMA ASSOCIATE PROGRAM MANAGER 03/18/2012 Office visit WILBERT KOROMA ASSOCIATE PROGRAM MANAGER 02/12/2012 Laboratory WILBERT KOROMA ASSOCIATE PROGRAM MANAGER 01/29/2012 Office visit WILBERT KOROMA ASSOCIATE PROGRAM MANAGER 12/23/2011 Laboratory WILBERT KOROMA ASSOCIATE PROGRAM MANAGER 11/05/2011 Laboratory WILBERT KOROMA ASSOCIATE PROGRAM MANAGER 11/04/2011 Office visit WILBERT KOROMA ASSOCIATE PROGRAM MANAGER 09/02/2011 Office visit WILBERT KOROMA ASSOCIATE PROGRAM MANAGER 07/26/2010 Office visit Wilbert Koroma ASSOCIATE PROGRAM MANAGER
--- OUTSIDE RECORDS SUMMARY | 2017-10-19 10:50 | XMS REPORT ---
Author Author Mary Garza [facility] Address [address] [place], [place] [id number] Care Team Providers Care Psychiatric Nursing Aide Name Role Phone Mary Garza PCP Unavailable WILBERT KOROMA PreferredProvider Unavailable Allergies and Adverse Reactions Name Reaction Notes NO KNOWN DRUG ALLERGIES Plan of Treatment Planned Activity Comments Planned Date Planned Time Plan/Goal UA with Culture and Sensitivity, if indicated 11/07/2016 12:00 AM Medications Active Name Start Date Estimated Completion Date SIG Comments levothyroxine 112 mcg oral tablet 03/24/2013 TAKE ONE TABLET BY MOUTH EVERY DAY levothyroxine 112 mcg oral tablet 04/25/2013 TAKE ONE TABLET BY MOUTH EVERY DAY Maxalt-EQUIPMENT WORKER 10 mg oral tablet,disintegrating 05/30/2015 take 1 [...] TABLET BY MOUTH ONCE DAILY IN THE RUSSIAN HISTORY PROFESSOR. topiramate 50 mg oral tablet 03/29/2016 TAKE [...] smoker Alcohol Current some day social use [employer] History of Procedures Date Ordered Description Order [...] 11/05/2011 12:00 AM CHORIONIC GONADOTROPIN ASSAY Reviewed 12/23/2011 12:00 AM ASSAY THYROID STIM [...] NEGATIVE 04/08/2016 10:04 AM Test, Urine negative History Of Immunizations Name Date Admin Mfg Name Mf Code Trade Name Lot# Route Inj Vis Given Vis Pub CVX Td 07/26/2010 sanofi pasteur [facility] DECAVAC [id number] Intramuscular Right Deltoid 07/26/2010 02/15/2008 999 History [...] Policy Group Number Start Date BCBS Bcbs [facility] [id number] N/A [employer] [place] [id number] Monday, 2010 [employer] [place] [id number] N/A [facility] [id number] December [facility] Occupational Medicine [id number] N/A History of Encounters Visit Date Visit Type Provider 05/30/2016 Office visit Mary Garza SOLDER MAKING LABORER 04/14/2016 Office visit Mary Garza SOLDER MAKING LABORER 04/08/2016 Office visit Mary Garza SOLDER MAKING LABORER 02/20/2016 Office visit Dougie Rahman SOLDER MAKING LABORER 07/02/2015 Office visit WILBERT KOROMA SOLDER MAKING LABORER 05/30/2015 Office visit WILBERT KOROMA SOLDER MAKING LABORER 04/25/2015 Laboratory WILBERT KOROMA SOLDER MAKING LABORER 04/18/2015 Office visit WILBERT KOROMA SOLDER MAKING LABORER 04/17/2014 Office visit Mary Garza SOLDER MAKING LABORER 04/10/2014 Office visit Mary Garza SOLDER MAKING LABORER 01/13/2013 Office visit Pasquale Pagan MD 12/30/2012 Office visit Pasquale Pagan MD 12/09/2012 Office visit Mary Garza SOLDER MAKING LABORER 10/28/2012 Office visit Pasquale Pagan MD 10/07/2012 Office visit Pasquale Pagan MD 06/07/2012 Office visit WILBERT KOROMA SOLDER MAKING LABORER 03/18/2012 Office visit WILBERT KOROMA SOLDER MAKING LABORER 02/12/2012 Laboratory WILBERT KOROMA SOLDER MAKING LABORER 01/29/2012 Office visit WILBERT KOROMA SOLDER MAKING LABORER 12/23/2011 Laboratory WILBERT KOROMA SOLDER MAKING LABORER 11/05/2011 Laboratory WILBERT KOROMA SOLDER MAKING LABORER 11/04/2011 Office visit WILBERT KOROMA SOLDER MAKING LABORER 09/02/2011 Office visit WILBERT KOROMA SOLDER MAKING LABORER 07/26/2010 Office visit Wilbert Koroma SOLDER MAKING LABORER
--- OUTSIDE RECORDS SUMMARY | 2017-10-19 10:51 | XMS REPORT ---
Author Author Mary Garza [facility] Address [address] [facility] [address] [place], [place] [id number] Care Team Providers Care School Secretary Name Role Phone Mary Garza PCP Unavailable WILBERT KOROMA PreferredProvider Unavailable Allergies and Adverse Reactions Name Reaction Notes NO KNOWN DRUG ALLERGIES Plan of Treatment Not available. Medications Active Name Start Date Estimated Completion Date SIG Comments levothyroxine 112 mcg oral tablet 03/24/2013 TAKE ONE TABLET BY MOUTH EVERY DAY levothyroxine 112 mcg oral tablet 04/25/2013 TAKE ONE TABLET BY MOUTH EVERY DAY Maxalt-OBSTETRICS GYN PHYSICIAN 10 mg oral tablet,disintegrating 05/30/2015 take 1 [...] TABLET BY MOUTH ONCE DAILY IN THE NON DESTRUCTIVE EVALUATION MANAGER. topiramate 50 mg oral tablet 03/29/2016 TAKE 1 TABLET BY MOUTH DAILY IN THE MORNING AND TAKE 1 AND 1/2 TABLETS DAILY AT BEDTIME CAN ADJUST DISCUSSED Tri-Sprintec (28) 0.18/0.215/0.25 mg-35 mcg (28) oral tablet 04/09/20162016 take 1 tablet by oral route once daily for 28 days Name Start Date Expiration Date SIG [...] by oral route once for 1 day Discontinued Name Start Date Discontinued Date SIG [...] HC BMI BSA BMI Percentile O2 Sat(%) 04/14/2016 3:36:00 PM 137 mmHg 64 mmHg [...] smoker Alcohol Current some day social use [facility] [employer] History of Procedures Date Ordered Description Order [...] 04/11/2016 12:00 AM US EXAM PELVIC COMPLETE Returned 04/11/2016 12:00 AM TRANSVAGINAL US NON-OB Returned 11/04/2011 12:00 AM COMPLETE CBC W/AUTO DIFF [...] 12:00 AM IMMUNIZATION ADMIN Reviewed Results Summary Data and Description Results 11/05/2011 2:54 PM WBC [...] Vis Given Vis Pub CVX Td 07/26/2010 [facility] DECAVA [id number] Intramuscular Right Deltoid 07/26/2010 02/15/2008 999 History [...] of ovary, right Apr 14 2016 3:38PM Payers Insurance Name Company Name Plan Name Plan Number Policy Number Policy Group Number Start Date [employer] [place] [id number] N/A [employer] [place] [id number] Monday, 2010 [employer] [place] [id number] N/A [facility] [id number] December [facility] Occupational Medicine [id number] N/A History of Encounters Visit Date Visit Type Provider 04/14/2016 Office visit Mary Garza PHLEBOTOMY SPECIALIST 04/08/2016 Office visit Mary Garza PHLEBOTOMY SPECIALIST 02/20/2016 Office visit Dougie Rahman PHLEBOTOMY SPECIALIST 07/02/2015 Office visit WILBERT KOROMA PHLEBOTOMY SPECIALIST 05/30/2015 Office visit WILBERT KOROMA PHLEBOTOMY SPECIALIST 04/25/2015 Laboratory WILBERT KOROMA PHLEBOTOMY SPECIALIST 04/18/2015 Office visit WILBERT KOROMA PHLEBOTOMY SPECIALIST 04/17/2014 Office visit Mary Garza PHLEBOTOMY SPECIALIST 04/10/2014 Office visit Mary Garza PHLEBOTOMY SPECIALIST 01/13/2013 Office visit Pasquale Pagan MD 12/30/2012 Office visit Pasquale Pagan MD 12/09/2012 Office visit Mary Garza PHLEBOTOMY SPECIALIST 10/28/2012 Office visit Pasquale Pagan MD 10/07/2012 Office visit Pasquale Pagan MD 06/07/2012 Office visit WILBERT KOROMA PHLEBOTOMY SPECIALIST 03/18/2012 Office visit WILBERT KOROMA PHLEBOTOMY SPECIALIST 02/12/2012 Laboratory WILBERT KOROMA PHLEBOTOMY SPECIALIST 01/29/2012 Office visit WILBERT KOROMA PHLEBOTOMY SPECIALIST 12/23/2011 Laboratory WILBERT KOROMA PHLEBOTOMY SPECIALIST 11/05/2011 Laboratory WILBERT KOROMA PHLEBOTOMY SPECIALIST 11/04/2011 Office visit WILBERT KOROMA PHLEBOTOMY SPECIALIST 09/02/2011 Office visit WILBERT KOROMA PHLEBOTOMY SPECIALIST 07/26/2010 Office visit Wilbert Koroma PHLEBOTOMY SPECIALIST
--- OUTSIDE RECORDS SUMMARY | 2017-10-19 10:52 | XMS REPORT ---
Author Author WILBERT KOROMA [facility] Address [address] [place], [place] [address] Care Team Providers Care Chart Clerk Name Role Phone WILBERT KOROMA PCP Unavailable [...] (150 mcg) by oral route once daily Maxalt-CAGE UNLOADER 10 mg oral tablet,disintegrating 01/07/2017 take 1 [...] oral route once daily in the evening Name Start Date Expiration Date SIG Comments [...] intranasal route 2 times per day Zithromax Z-Ejrrell 250 mg oral tablet 03/18/2012 03/23/2012 take [...] smoker Alcohol Current some day social use [facility] [employer] History of Procedures Date Ordered Description Order [...] Vis Given Vis [facility] DECAVAC [id number] Intramuscular Right Deltoid 07/26/2010 02/15/2008 999 History [...] Number Start Date [employer] [place] [id number] N/A [employer] [place] [id number] Monday, 2010 [employer] [place] [id number] N/A [facility] [id number] December [facility] Occupational Medicine [id number] N/A History of Encounters Visit Date Visit Type Provider 01/19/2017 Office visit WILBERT KOROMA UNCLAIMED PROPERTY OFFICER 01/07/2017 Office visit WILBERT KOROMA UNCLAIMED PROPERTY OFFICER 12/18/2016 Office visit Dougie Rahman UNCLAIMED PROPERTY OFFICER 05/30/2016 Office visit Mary Garza UNCLAIMED PROPERTY OFFICER 04/14/2016 Office visit Mary Garza UNCLAIMED PROPERTY OFFICER 04/08/2016 Office visit Mary Garza UNCLAIMED PROPERTY OFFICER 02/20/2016 Office visit Dougie Rahman UNCLAIMED PROPERTY OFFICER 07/02/2015 Office visit WILBERT KOROMA UNCLAIMED PROPERTY OFFICER 05/30/2015 Office visit WILBERT KOROMA UNCLAIMED PROPERTY OFFICER 04/25/2015 Laboratory WILBERT KOROMA UNCLAIMED PROPERTY OFFICER 04/18/2015 Office visit WILBERT KOROMA UNCLAIMED PROPERTY OFFICER 04/17/2014 Office visit Mary Garza UNCLAIMED PROPERTY OFFICER 04/10/2014 Office visit Mary Garza UNCLAIMED PROPERTY OFFICER 01/13/2013 Office visit Pasquale Pagan MD 12/30/2012 Office visit Pasquale Pagan MD 12/09/2012 Office visit Mary Garza UNCLAIMED PROPERTY OFFICER 10/28/2012 Office visit Pasquale Pagan MD 10/07/2012 Office visit Pasquale Pagan MD 06/07/2012 Office visit WILBERT KOROMA UNCLAIMED PROPERTY OFFICER 03/18/2012 Office visit WILBERT KOROMA UNCLAIMED PROPERTY OFFICER 02/12/2012 Laboratory WILBERT KOROMA UNCLAIMED PROPERTY OFFICER 01/29/2012 Office visit WILBERT KOROMA UNCLAIMED PROPERTY OFFICER 12/23/2011 Laboratory WILBERT KOROMA UNCLAIMED PROPERTY OFFICER 11/05/2011 Laboratory WILBERT KOROMA UNCLAIMED PROPERTY OFFICER 11/04/2011 Office visit WILBERT KOROMA UNCLAIMED PROPERTY OFFICER 09/02/2011 Office visit WILBERT KOROMA UNCLAIMED PROPERTY OFFICER 07/26/2010 Office visit Wilbert Koroma UNCLAIMED PROPERTY OFFICER
--- OUTSIDE RECORDS SUMMARY | 2017-10-19 10:52 | XMS REPORT ---
Author Author WILBERT MELÉNDEZ [facility] Address [address] [place], [place] [address] Care Team Providers Care Concrete Plant Laborer Name Role Phone WILBERT MELÉNDEZ PCP Unavailable Allergies and Adverse Reactions Name Reaction Notes NO KNOWN DRUG ALLERGIES Plan of Treatment Planned Activity Comments Planned Date Planned Time Plan/Goal URINALYSIS AUTO W/O SCOPE 04/25/2015 12:00 AM Medications Active Name Start Date Estimated Completion Date SIG Comments levothyroxine 112 mcg oral tablet 03/24/2013 TAKE ONE TABLET BY MOUTH EVERY DAY levothyroxine 112 mcg oral tablet 04/25/2013 TAKE ONE TABLET BY MOUTH EVERY DAY Maxalt-FUSION JUNCTURE GRINDER 10 mg oral tablet,disintegrating 05/30/2015 take 1 tablet (10 mg ) and place on top of the tongue where it will dissolve, then swallow by oral route once, may repeat at 2 hour intervals; do not exceed 30 mg in 24 hours cetirizine-pseudoephedrine 5-120 mg oral tablet extended release 12 hr 2015 take 1 tablet by oral route 2 times per day topiramate 50 mg oral tablet 05/30/2015 take 1 tablet (50 mg) PO QAM and 1.5 tab (75mg) QHS can adjust as discussed topiramate 50 mg oral tablet 07/30/2015 TAKE 1 TABLET BY MOUTH DAILY IN THE MORNING AND TAKE 1 AND 1/2 TABLETS DAILY AT BEDTIME CAN ADJUST DISCUSSED topiramate 50 mg oral tablet 10/31/2015 TAKE 1 TABLET BY MOUTH DAILY IN THE MORNING AND TAKE 1 AND 1/2 TABLETS DAILY AT BEDTIME CAN ADJUST DISCUSSED Name Start Date Expiration Date SIG [...] by oral route once for 1 day Tri-Sprintec (28) 0.18/0.215/0.25 mg-35 mcg (28) oral tablet 04/17/20142014 take 1 tablet by oral route once daily for 28 days Discontinued Name Start Date Discontinued Date [...] per day with food for 7 days Problem List Description Status Onset Hypothyroidism Active Abnormal Uterine Bleeding Active 09/2011 Migraine Active 04/19/2015 Headache Active 04/19/2015 Vital Signs Date Time BP-Sys(mm[Hg] BP-Mansi(mm[Hg]) HR(bpm) RR(rpm) Temp WT HT HC BMI BSA BMI Percentile O2 Sat(%) 07/02/2015 4:37:00 PM 63 bpm 20 rpm [...] F 173.5 lbs 63 in 30.73 kg/m2 1.8703 m 98 % 09/02/2011 2:43:00 PM 120 mmHg 74 mmHg 70 bpm 20 rpm 96.7 F 173 lbs 63 in 30.6453 kg/m 1.87 m2 98 % 07/26/2010 9:33:00 AM 110 mmHg 60 mmHg 102 bpm 22 rpm 96.4 F 158 lbs 63 in 27.99 kg/m2 1.7848 m 98 % Social History Name Description Comments Tobacco Former smoker Alcohol Current some day social use [employer] [facility] [employer] History of Procedures Date Ordered Description Order Status 04/25/2015 12:00 AM LIPID PANEL Returned 04/25/2015 12:00 AM GENERAL HEALTH PANEL Returned 04/25/2015 8:39 AM URINALYSIS AUTO W/O SCOPE Reviewed 11/04/2011 12:00 AM COMPLETE CBC W/AUTO DIFF WBC Returned 11/04/2011 12:00 AM COMPREHEN METABOLIC PANEL Returned 11/04/2011 12:00 AM LIPID PANEL Returned 11/04/2011 12:00 AM FREE ASSAY (FT-3) Returned 11/04/2011 12:00 AM ASSAY THYROID STIM HORMONE Returned 11/04/2011 12:00 AM URINALYSIS NONAUTO W/SCOPE Reviewed 11/04/2011 12:00 AM URINE TEST Returned 11/05/2011 12:00 AM GENERAL HEALTH PANEL Reviewed 11/05/2011 12:00 AM LIPID PANEL Reviewed 11/05/2011 12:00 AM ASSAY OF THYROID (T3 OR T4) Returned 11/05/2011 12:00 AM CHORIONIC GONADOTROPIN ASSAY Reviewed 12/23/2011 12:00 AM ASSAY THYROID STIM HORMONE Returned 12/23/2011 12:00 AM ASSAY OF FREE THYROXINE Returned 02/12/2012 12:00 AM ROUTINE VENIPUNCTURE Reviewed 02/12/2012 12:00 AM CHORIONIC GONADOTROPIN ASSAY Reviewed 10/07/2012 12:00 AM ASSAY OF GONADOTROPIN (FSH) Returned 10/07/2012 12:00 AM ASSAY OF PROLACTIN Returned 10/07/2012 12:00 AM ASSAY THYROID STIM HORMONE Returned 10/07/2012 12:00 AM CYTOPATH TBS C/V MANUAL Returned 10/07/2012 12:00 AM SPECIMEN HANDLING OFFICE-LAB Reviewed 10/07/2012 12:00 AM CHYLMD TRACH DNA AMP PROBE Returned 10/07/2012 12:00 AM N.GONORRHOEAE DNA AMP PROB Returned 10/28/2012 12:00 AM URINE TEST Reviewed 10/28/2012 12:00 AM INSERT INTRAUTERINE DEVICE Reviewed 12/22/2012 12:00 AM US EXAM PELVIC COMPLETE Returned 12/30/2012 12:00 AM URINALYSIS AUTO W/SCOPE Returned 12/30/2012 12:00 AM CHYLMD TRACH DNA AMP PROBE Returned 12/30/2012 12:00 AM N.GONORRHOEAE DNA AMP PROB Returned 01/13/2013 12:00 AM REMOVE INTRAUTERINE DEVICE Reviewed 04/10/2014 12:00 AM URINALYSIS NONAUTO W/SCOPE Returned 04/17/2014 12:00 AM US EXAM PELVIC COMPLETE Returned 04/17/2014 12:00 AM SPECIMEN HANDLING OFFICE-LAB Reviewed 04/17/2014 12:00 AM CYTOPATH C/V THIN LAYER Returned 07/26/2010 12:00 AM TD VACCINE NO PRSRV 7/> IM Reviewed 07/26/2010 12:00 AM IMMUNIZATION ADMIN Reviewed Results Summary Data and Description Results 11/05/2011 2:54 PM WBC 7.4 RBC 4.91 HGB 13.90 g/dLHCT 41.0 %MCV 84.0 fLMCH 28.30 pgMCHC 33.90 g/dLRDW CV 12.60 %MPV 10.20 fLPLT 282 %NEUT 54.0 %%LYMP 32.10 %%MONO 8.30 %%EOS 5.30 %%BASO 0.30 %#NEUT 3.97 #LYMP 2.36 #MONO 0.61 #EOS 0.39 #BASO 0.02 GLUCOSE 104.0 mg/dLSODIUM 140.0 mmol/LPOTASSIUM 4.20 mmol/ LCHLORIDE 109.0 mmol/LCO2 22.0 mmol/LBUN 13.0 mg/dLCREATININE 0.70 mg/dLSGOT/ AST 14.0 IU/LSGPT/ALT 19.0 IU/LALK PHOS 71.0 IU/LTOTAL PROTEIN 7.0 g/dLALBUMIN 4.30 g/dLTOTAL BILI 0.40 mg/dLCALCIUM 9.20 mg/dLeGFR 60 TRIGLYCERIDES 99.0 mg/ dLCHOLESTEROL 190.0 mg/dLHDL 57.0 mg/dLLDL (CALC) 113.0 mg/dLT3 TOTAL 86.0 ng/ dLTSH < 0.06 mIU/L 12/23/2011 1:39 PM TSH 0.320 uIU/mL 10/07/2012 10:24 AM TSH 1.020 uIU/mLFSH 11.0 mIU/mL 12/30/2012 4:09 PM COLOR YELLOW APPEARANCE CLEAR SPEC GRAV 1.025 pH 6.0 PROTEIN NEGATIVE GLUCOSE NEGATIVE KETONE NEGATIVE BILIRUBIN NEGATIVE BLOOD NEGATIVE NITRITE NEGATIVE LEUK SCREEN NEGATIVE CASTS/LPF NEGATIVE CRYSTALS NEGATIVE MUCOUS THRDS NEGATIVE BACTERIA FEW EPITH CELLS FEW SQUAMOUS TRICHOMONAS NEGATIVE YEAST NEGATIVE 04/10/2014 3:51 PM COLOR YELLOW APPEARANCE HAZY SPEC GRAV <=1.005 pH 6.0 PROTEIN NEGATIVE GLUCOSE NEGATIVE KETONE NEGATIVE BILIRUBIN NEGATIVE BLOOD LARGE NITRITE NEGATIVE LEUK SCREEN SMALL CASTS/LPF NEGATIVE CRYSTALS NEGATIVE MUCOUS THRDS NEGATIVE BACTERIA 2++ EPITH CELLS 1+ SQUAMOUS TRICHOMONAS NEGATIVE YEAST NEGATIVE 04/25/2015 8:39 AM Clarity Ur clear Color [...] g/dLALBUMIN 4.30 g/dLTOTAL BILI 0.50 mg/dLCALCIUM 9.10 mg/dLeGFR >60 mL/min/1.73mTSH 0.150 uIU/mLTRIGLYCERIDES 202.0 mg/dLCHOLESTEROL 197.0 mg/dLHDL 52.0 mg/dLLDL ( CALC) 105.0 mg/dLWBC 7.4 RBC 4.62 HGB 13.50 g/dLHCT 40.30 %MCV 87.0 fLMCH 29.20 pgMCHC 33.50 g/dLRDW CV 12.60 %MPV 10.30 fLPLT 266 %NEUT 63.60 %%LYMP 27.60 %% MONO 5.80 %%EOS 2.70 %%BASO 0.30 %#NEUT 4.69 #LYMP 2.04 #MONO 0.43 #EOS 0.20 # BASO 0.02 History Of Immunizations Name Date Admin Mfg Name Mf Code Trade Name Lot# Route Inj Vis Given Vis Pub CVX Td 07/26/2010 sanofi pasteur [facility] [id number] Intramuscular Right Deltoid 07/26/2010 02/15/2008 999 History [...] Check/Removal/Management/Reinsertion Dec 09 2012 4:20PM Pelvic Pain Sep 16 2013 11:26AM Pelvic Pain Dec 30 2012 11:33AM [...] 2015 4:38PM Hypothyroidism Jul 02 2015 4:38PM Payers Insurance Name Company Name Plan Name Plan Number Policy Number Policy Group Number Start Date [facility] [id number] December [employer] [place] [id number] Monday, 2010 [employer] [place] [id number] N/A History of Encounters Visit Date Visit Type Provider 07/02/2015 Office visit WILBERT MELÉNDEZ SHELL FREEZING MACHINE OPERATOR 05/30/2015 Office visit WILBERT MELÉNDEZ SHELL FREEZING MACHINE OPERATOR 04/25/2015 Laboratory WILBERT MELÉNDEZ SHELL FREEZING MACHINE OPERATOR 04/18/2015 Office visit WILBERT MELÉNDEZ SHELL FREEZING MACHINE OPERATOR 04/17/2014 Office visit Mary Garza SHELL FREEZING MACHINE OPERATOR 04/10/2014 Office visit Mary Garza SHELL FREEZING MACHINE OPERATOR 01/13/2013 Office visit Pasquale Pagan MD 12/30/2012 Office visit Pasquale Pagan MD 12/09/2012 Office visit Mary Garza SHELL FREEZING MACHINE OPERATOR 10/28/2012 Office visit Pasquale Pagan MD 10/07/2012 Office visit Pasquale Pagan MD 06/07/2012 Office visit WILBERT MELÉNDEZ SHELL FREEZING MACHINE OPERATOR 03/18/2012 Office visit WILBERT MELÉNDEZ SHELL FREEZING MACHINE OPERATOR 02/12/2012 Laboratory WILBERT MELÉNDEZ SHELL FREEZING MACHINE OPERATOR 01/29/2012 Office visit WILBERT MELÉNDEZ SHELL FREEZING MACHINE OPERATOR 12/23/2011 Laboratory WILBERT MELÉNDEZ SHELL FREEZING MACHINE OPERATOR 11/05/2011 Laboratory WILBERT MELÉNDEZ SHELL FREEZING MACHINE OPERATOR 11/04/2011 Office visit WILBERT MELÉNDEZ SHELL FREEZING MACHINE OPERATOR 09/02/2011 Office visit WILBERT MELÉNDEZ SHELL FREEZING MACHINE OPERATOR 07/26/2010 Office visit Wilbert Meléndez SHELL FREEZING MACHINE OPERATOR
--- OUTSIDE RECORDS SUMMARY | 2017-10-19 10:53 | XMS REPORT ---
Author Author Mary Garza [facility] Address [address] [place], [place] [id number] Care Team Providers Care Aircraft Delivery Checker Name Role Phone Mary Garza PCP Lilian Kay PreferredProvider Allergies and Adverse Reactions Name Reaction Notes NO KNOWN DRUG ALLERGIES Plan of Treatment Planned Activity Comments Planned Date Planned Time Plan/Goal Gonadotropin, chorionic (hCG); quantitative 05/12/2017 12:00 AM Medications Active Name Start Date [...] TABLETS DAILY AT BEDTIME CAN ADJUST DISCUSSED Maxalt-FAMILY RESOURCE MANAGEMENT SPECIALIST 10 mg oral tablet,disintegrating 01/07/2017 take 1 [...] (3 mg) by oral route once daily levothyroxine 137 mcg oral tablet 04/15/2017 take [...] 3 times per day for 90 days Tri-Sprintec (28) 0.18/0.215/0.25 mg-35 mcg (28) oral tablet 05/30/20162017 take 1 tablet by oral route once daily for 84 days Augmentin 875-125 mg oral tablet 12/18/2016 [...] by oral route 2 times per day cetirizine-pseudoephedrine 5-120 mg oral tablet extended release 12 hr 201605/12/2017 take 1 tablet by oral route 2 times per day levothyroxine 150 mcg oral tablet 01/07/2017 04/15/2017 take 1 tablet (150 mcg) by oral route once daily changed to levothyroxine 137mcg Protonix 40 mg oral tablet,delayed release (DR/EC) 02/16/2017 05/12/2017 take 1 tablet (40 mg) by oral route once daily for 30 days Carafate 1 gram oral tablet 02/16/2017 05/12/2017 take 1 tablet (1 gram) by oral route 4 times per day on an empty stomach 1 hour before meals and at bedtime for 14 days Problem List Description Status Onset Hypothyroidism Active Abnormal uterine bleeding Active 09/2011 Migraine Active 04/19/2015 Headache Active 04/19/2015 Vital Signs Date Time BP-Sys(mm[Hg] BP-Mansi(mm[Hg]) HR(bpm) RR(rpm) Temp WT HT HC BMI BSA BMI Percentile O2 Sat(%) 05/12/2017 9:34:00 AM 115 mmHg 63 mmHg 77 bpm 98 F 156 lbs 62 in 28.53 kg/m2 1.76 m2 02/16/2017 2:24:00 PM 129 mmHg 70 mmHg 75 bpm 18 rpm 98.8 F 153.125 lbs 62 in 28.0066 kg/m 1.7431 m 100 % 01/19/2017 3:56:00 PM 118 mmHg [...] smoker Alcohol Current some day social use [place] [employer] History of Procedures Date Ordered Description Order [...] 04/13/2017 12:00 AM ASSAY THYROID STIM HORMONE Reviewed 05/12/2017 10:07 AM URINE TEST Reviewed 10/07/2012 12:00 AM ASSAY OF GONADOTROPIN [...] Ur Ql Strip small Test, Urine neg 04/14/2017 3:42 PM TSH <0.06 uIU/mL 05/12/2017 10:07 AM Test, Urine negative History Of Immunizations Name Date Admin Mfg Name Mfg Code Trade Name Lot# Route Inj Vis Given Vis Pub CVX Td 07/26/2010 sanofi pasteur [facility] DECAVAC [id number] Intramuscular Right Deltoid 07/26/2010 02/15/2008 999 History [...] 2017 2:25PM Hypothyroid Apr 13 2017 3:20PM Amenorrhea May 12 2017 9:39AM Payers Insurance Name Company Name Plan Name Plan Number Policy Number Policy Group Number Start Date [facility] [facility] [id number] N/A [employer] [facility] [id number] Monday, 2010 [employer] [facility] [id number] N/A [facility] [id number] December [facility] Occupational Medicine [id number] N/A History of Encounters Visit Date Visit Type Provider 05/12/2017 Office visit Mary Garza ENVIRONMENTAL INSPECTOR 02/16/2017 Office visit Lilian Kay ENVIRONMENTAL INSPECTOR 01/19/2017 Office visit WILBERT KOROMA ENVIRONMENTAL INSPECTOR 01/07/2017 Office visit WILBERT KOROMA ENVIRONMENTAL INSPECTOR 12/18/2016 Office visit Dougie Rahman ENVIRONMENTAL INSPECTOR 05/30/2016 Office visit Mary Garza ENVIRONMENTAL INSPECTOR 04/14/2016 Office visit Mary Garza ENVIRONMENTAL INSPECTOR 04/08/2016 Office visit Mary Garza ENVIRONMENTAL INSPECTOR 02/20/2016 Office visit Dougie Rahman ENVIRONMENTAL INSPECTOR 07/02/2015 Office visit WILBERT KOROMA ENVIRONMENTAL INSPECTOR 05/30/2015 Office visit WILBERT KOROMA ENVIRONMENTAL INSPECTOR 04/25/2015 Laboratory WILBERT KOROMA ENVIRONMENTAL INSPECTOR 04/18/2015 Office visit WILBERT KOROMA ENVIRONMENTAL INSPECTOR 04/17/2014 Office visit Mary Garza ENVIRONMENTAL INSPECTOR 04/10/2014 Office visit Mary Garza ENVIRONMENTAL INSPECTOR 01/13/2013 Office visit Pasquale Pagan MD 12/30/2012 Office visit Pasquale Pagan MD 12/09/2012 Office visit Mary Garza ENVIRONMENTAL INSPECTOR 10/28/2012 Office visit Pasquale Pagan MD 10/07/2012 Office visit Pasquale Pagan MD 06/07/2012 Office visit WILBERT KOROMA ENVIRONMENTAL INSPECTOR 03/18/2012 Office visit WILBERT KOROMA ENVIRONMENTAL INSPECTOR 02/12/2012 Laboratory WILBERT KOROMA ENVIRONMENTAL INSPECTOR 01/29/2012 Office visit WILBERT KOROMA ENVIRONMENTAL INSPECTOR 12/23/2011 Laboratory WILBERT KOROMA ENVIRONMENTAL INSPECTOR 11/05/2011 Laboratory WILBERT KOROMA ENVIRONMENTAL INSPECTOR 11/04/2011 Office visit WILBERT KOROMA ENVIRONMENTAL INSPECTOR 09/02/2011 Office visit WILBERT KOROMA ENVIRONMENTAL INSPECTOR 07/26/2010 Office visit Wilbert Koroma ENVIRONMENTAL INSPECTOR
--- OUTSIDE RECORDS SUMMARY | 2017-10-19 10:54 | XMS REPORT ---
Author Author WILBERT KOROMA [facility] Address [address] [place], [place] [address] Care Team Providers Care Senior Ruby Developer Name Role Phone WILBERT KOROMA PCP Unavailable Allergies and Adverse Reactions Name [...] TAKE ONE TABLET BY MOUTH EVERY DAY Maxalt-POST TENSIONING IRONWORKER HELPER 10 mg oral tablet,disintegrating 05/30/2015 take 1 [...] tab (75mg) QHS can adjust as discussed Name Start Date Expiration Date SIG Comments [...] smoker Alcohol Current some day social use [facility] [employer] History of Procedures Date Ordered Description Order [...] Given Vis Pub CVX Td 07/26/2010 sanofi [facility] DECAVA [id number] Intramuscular Right Deltoid 07/26/2010 02/15/2008 999 History [...] Policy Number Policy Group Number Start Date [facility] [id number] December [employer] [place] [id number] Monday, 2010 [employer] [place] [id number] N/A History of Encounters Visit Date Visit Type Provider 07/02/2015 Office visit WILBERT KOROMA TRAVEL SERVICES PROFESSIONAL 05/30/2015 Office visit WILBERT KOROMA TRAVEL SERVICES PROFESSIONAL 04/25/2015 Laboratory WILBERT KOROMA TRAVEL SERVICES PROFESSIONAL 04/18/2015 Office visit WILBERT KOROMA TRAVEL SERVICES PROFESSIONAL 04/17/2014 Office visit Mary aGrza TRAVEL SERVICES PROFESSIONAL 04/10/2014 Office visit Mary Garza TRAVEL SERVICES PROFESSIONAL 01/13/2013 Office visit Pasquale Pagan MD 12/30/2012 Office visit Pasquale Pagan MD 12/09/2012 Office visit Mary Garza TRAVEL SERVICES PROFESSIONAL 10/28/2012 Office visit Pasquale Pagan MD 10/07/2012 Office visit Pasquale Pagan MD 06/07/2012 Office visit WILBERT KOROMA TRAVEL SERVICES PROFESSIONAL 03/18/2012 Office visit WILBERT KOROMA TRAVEL SERVICES PROFESSIONAL 02/12/2012 Laboratory WILBERT KOROMA TRAVEL SERVICES PROFESSIONAL 01/29/2012 Office visit WILBERT KORMOA TRAVEL SERVICES PROFESSIONAL 12/23/2011 Laboratory WILBERT KOROMA TRAVEL SERVICES PROFESSIONAL 11/05/2011 Laboratory WILBERT KOROMA TRAVEL SERVICES PROFESSIONAL 11/04/2011 Office visit WILBERT KOROMA TRAVEL SERVICES PROFESSIONAL 09/02/2011 Office visit WILBERT KOROMA TRAVEL SERVICES PROFESSIONAL 07/26/2010 Office visit Wilbert Koroma TRAVEL SERVICES PROFESSIONAL
--- OUTSIDE RECORDS SUMMARY | 2017-10-19 10:54 | XMS REPORT ---
Author Author Mary Garza [facility] Address [address] [place], [place] [id number] Care Team Providers Care Automotive Service Porter Name Role Phone Mary Garza PCP Unavailable WILBERT KOROMA PreferredProvider Unavailable Allergies and Adverse Reactions Name Reaction Notes NO KNOWN DRUG ALLERGIES Plan of Treatment Planned Activity Comments Planned Date Planned Time Plan/Goal Transabdominal / Transvaginal US (non-OB) 04/11/2016 12:00 AM Transabdominal / Transvaginal US (non-OB) 04/11/2016 12:00 AM Medications Active Name Start Date Estimated Completion Date SIG Comments levothyroxine 112 mcg oral tablet 03/24/2013 TAKE ONE TABLET BY MOUTH EVERY DAY levothyroxine 112 mcg oral tablet 04/25/2013 TAKE ONE TABLET BY MOUTH EVERY DAY Maxalt-WIND SITE MANAGER 10 mg oral tablet,disintegrating 05/30/2015 take 1 [...] TABLET BY MOUTH ONCE DAILY IN THE SHIPPING AND RECEIVING MATERIAL HANDLER. topiramate 50 mg oral tablet 03/29/2016 TAKE [...] HC BMI BSA BMI Percentile O2 Sat(%) 04/08/2016 9:31:00 AM 124 mmHg 74 mmHg [...] smoker Alcohol Current some day social use [facility] [place] History of Procedures Date Ordered Description Order [...] Vis Given Vis Pub CVX Td 07/26/2010 [facility] DECAVAC [id number] Intramuscular Right Deltoid 07/26/2010 02/15/2008 999 History [...] Female pelvic pain Apr 08 2016 10:06AM Payers Insurance Name Company Name Plan Name Plan Number Policy Number Policy Group Number Start Date [employer] [place] [id number] N/A [employer] [place] [id number] Monday, 2010 [employer] [place] [id number] N/A [facility] [id number] December [facility] Occupational Medicine [id number] N/A History of Encounters Visit Date Visit Type Provider 04/08/2016 Office visit Mary Garza SUPERVISOR STRIPPING 02/20/2016 Office visit Dougie Rahman SUPERVISOR STRIPPING 07/02/2015 Office visit WILBERT KOROMA SUPERVISOR STRIPPING 05/30/2015 Office visit WILBERT KOROMA SUPERVISOR STRIPPING 04/25/2015 Laboratory WILBERT KOROMA SUPERVISOR STRIPPING 04/18/2015 Office visit WILBERT KOROMA SUPERVISOR STRIPPING 04/17/2014 Office visit Mary Garza SUPERVISOR STRIPPING 04/10/2014 Office visit Mary Garza SUPERVISOR STRIPPING 01/13/2013 Office visit Pasquale Pagan MD 12/30/2012 Office visit Pasquale Pagan MD 12/09/2012 Office visit Mary Garza SUPERVISOR STRIPPING 10/28/2012 Office visit Pasquale Pagan MD 10/07/2012 Office visit Pasquale Pagan MD 06/07/2012 Office visit WILBERT KOROMA SUPERVISOR STRIPPING 03/18/2012 Office visit WILBERT KOROMA SUPERVISOR STRIPPING 02/12/2012 Laboratory WILBERT KOROMA SUPERVISOR STRIPPING 01/29/2012 Office visit WILBERT KOROMA SUPERVISOR STRIPPING 12/23/2011 Laboratory WILBERT KOROMA SUPERVISOR STRIPPING 11/05/2011 Laboratory WILBERT KOROMA SUPERVISOR STRIPPING 11/04/2011 Office visit WILBERT KOROMA SUPERVISOR STRIPPING 09/02/2011 Office visit WILBERT KOROMA SUPERVISOR STRIPPING 07/26/2010 Office visit Wilbert Koroma SUPERVISOR STRIPPING
--- OUTSIDE RECORDS SUMMARY | 2017-10-19 10:55 | XMS REPORT ---
Author Author WILBERT KOROMA [facility] Address [address] [place], [place] [id number] Care Team Providers Care Electrical Journeyman Name Role Phone WILBERT KOROMA PCP Unavailable [...] oral route once daily for 84 days Bactrim DS 800-160 mg oral tablet 01/07/2017 01/17/2017 take 1 tablet by oral route every 12 hours for 10 days cetirizine-pseudoephedrine 5-120 mg oral tablet extended release 12 hr 2016 take 1 tablet by oral route 2 times per day levothyroxine 150 mcg oral tablet 01/07/2017 take 1 tablet (150 mcg) by oral route once daily Maxalt-SOLAR PHOTOVOLTAIC CREW LEAD 10 mg oral tablet,disintegrating 01/07/2017 take 1 [...] route every 12 hours for 7 days Discontinued Name Start Date Discontinued Date [...] HC BMI BSA BMI Percentile O2 Sat(%) 01/07/2017 5:04:00 PM 118 mmHg 76 mmHg 76 bpm 16 rpm 98.7 F 158.75 lbs 62 in 29.04 kg/m2 1.77 m2 99 % 12/18/2016 2:23:00 PM 120 mmHg 70 mmHg 71 bpm 16 rpm 97.2 F 156.312 lbs 62 in 28.5896 kg/m 1.7611 m 100 % 05/30/2016 11:07:00 AM [...] smoker Alcohol Current some day social use [place] [employer] History of Procedures Date Ordered Description Order [...] CVX Td 07/26/2010 sanofi pasteur PMC DECAVAC [id number] Intramuscular Right Deltoid 07/26/2010 02/15/2008 999 History [...] 5:07PM Allergic rhinitis Jan 07 2017 5:07PM Payers Insurance Name Company Name Plan Name Plan Number Policy Number Policy Group Number Start Date [employer] [place] [id number] N/A [employer] [place] [id number] Monday, 2010 [employer] [place] [id number] N/A [facility] [id number] December [facility] Occupational Medicine [id number] N/A History of Encounters Visit Date Visit Type Provider 01/07/2017 Office visit WILBERT KOROMA PHONE OPERATOR 12/18/2016 Office visit Dougie Rahman PHONE OPERATOR 05/30/2016 Office visit Mary Garza PHONE OPERATOR 04/14/2016 Office visit Mary Garza PHONE OPERATOR 04/08/2016 Office visit Mary Garza PHONE OPERATOR 02/20/2016 Office visit Dougie Rahman PHONE OPERATOR 07/02/2015 Office visit WILBERT KOROMA PHONE OPERATOR 05/30/2015 Office visit WILBERT KOROMA PHONE OPERATOR 04/25/2015 Laboratory WILBERT KOROMA PHONE OPERATOR 04/18/2015 Office visit WILBERT KOROMA PHONE OPERATOR 04/17/2014 Office visit Mary Garza PHONE OPERATOR 04/10/2014 Office visit Mary Garza PHONE OPERATOR 01/13/2013 Office visit Pasquale Pagan MD 12/30/2012 Office visit Pasquale Pagan MD 12/09/2012 Office visit Mary Garza PHONE OPERATOR 10/28/2012 Office visit Pasquale Pagan MD 10/07/2012 Office visit Pasquale Pagan MD 06/07/2012 Office visit WILBERT KOROMA PHONE OPERATOR 03/18/2012 Office visit WILBERT KOROMA PHONE OPERATOR 02/12/2012 Laboratory WILBERT KOROMA PHONE OPERATOR 01/29/2012 Office visit WILBERT KOROMA PHONE OPERATOR 12/23/2011 Laboratory WILBERT KOROMA PHONE OPERATOR 11/05/2011 Laboratory WILBERT KOROMA PHONE OPERATOR 11/04/2011 Office visit WILBERT KOROMA PHONE OPERATOR 09/02/2011 Office visit WILBERT KOROMA PHONE OPERATOR 07/26/2010 Office visit Wilbert Koroma PHONE OPERATOR
--- OUTSIDE RECORDS SUMMARY | 2017-10-19 10:56 | XMS REPORT ---
Author Author WILBERT KOROMA [facility] Address [address] [place], [place] [id number] Care Team Providers Care Board Mill Supervisor Name Role Phone WILBERT KOROMA PCP Unavailable [...] (150 mcg) by oral route once daily Maxalt-HEMATOLOGY TECHNICIAN 10 mg oral tablet,disintegrating 01/07/2017 take 1 [...] smoker Alcohol Current some day social use [place] [employer] History of Procedures Date Ordered Description Order [...] CVX Td 07/26/2010 sanofi pasteur PMC DECAVAC [id number] Intramuscular Right Deltoid 07/26/2010 02/15/2008 999 History [...] Group Number Start Date [employer] [place] [id number] N/A [employer] [place] [id number] Monday, 2010 [employer] [place] [id number] N/A [facility] [id number] December [facility] Occupational Medicine [id number] N/A History of Encounters Visit Date Visit Type Provider 01/07/2017 Office visit WILBERT KOROMA MANAGER DISCOVERY 12/18/2016 Office visit Dougie Rahman MANAGER DISCOVERY 05/30/2016 Office visit Mary Garza MANAGER DISCOVERY 04/14/2016 Office visit Mary Garza MANAGER DISCOVERY 04/08/2016 Office visit Mary Garza MANAGER DISCOVERY 02/20/2016 Office visit Dougie Rahman MANAGER DISCOVERY 07/02/2015 Office visit WILBERT KOROMA MANAGER DISCOVERY 05/30/2015 Office visit WILBERT KOROMA MANAGER DISCOVERY 04/25/2015 Laboratory WILBERT KOROMA MANAGER DISCOVERY 04/18/2015 Office visit WILBERT KOROMA MANAGER DISCOVERY 04/17/2014 Office visit Mary Garza MANAGER DISCOVERY 04/10/2014 Office visit Mary Garza MANAGER DISCOVERY 01/13/2013 Office visit Pasquale Pagan MD 12/30/2012 Office visit Pasquale Pagan MD 12/09/2012 Office visit Mary Garza MANAGER DISCOVERY 10/28/2012 Office visit Pasquale Pagan MD 10/07/2012 Office visit Pasquale Pagan MD 06/07/2012 Office visit WILBERT KOROMA MANAGER DISCOVERY 03/18/2012 Office visit WILBERT KOROMA MANAGER DISCOVERY 02/12/2012 Laboratory WILBERT KOROMA MANAGER DISCOVERY 01/29/2012 Office visit WILBERT KOROMA MANAGER DISCOVERY 12/23/2011 Laboratory WILBERT KOROMA MANAGER DISCOVERY 11/05/2011 Laboratory WILBERT KOROMA MANAGER DISCOVERY 11/04/2011 Office visit WILBERT KOROMA MANAGER DISCOVERY 09/02/2011 Office visit WILBERT KOROMA MANAGER DISCOVERY 07/26/2010 Office visit Wilbert Koroma MANAGER DISCOVERY
--- OUTSIDE RECORDS SUMMARY | 2017-10-19 10:57 | XMS REPORT ---
Author Author Mary Garza [facility] Address [address] [facility] [address] [place], [place] [id number] Care Team Providers Care Plate Gauger Name Role Phone Mary Garza PCP Unavailable [...] TAKE ONE TABLET BY MOUTH EVERY DAY Maxalt-SERVICE LINE COORDINATOR 10 mg oral tablet,disintegrating 05/30/2015 take 1 [...] TABLET BY MOUTH ONCE DAILY IN THE HAND POTTER. topiramate 50 mg oral tablet 03/29/2016 TAKE [...] smoker Alcohol Current some day social use [facility] [place] [employer] [place] History of Procedures Date Ordered Description Order [...] Vis Given Vis Pub CVX Td 07/26/2010 [facility] DECAVAC [id number] Intramuscular Right Deltoid 07/26/2010 02/15/2008 999 History [...] Group Number Start Date [employer] [place] [id number] N/A [employer] [place] [id number] Monday, 2010 [employer] [place] [id number] N/A [facility] [id number] December [facility] Occupational Medicine [id number] N/A History of Encounters Visit Date Visit Type Provider 04/08/2016 Office visit Mary Garza DIRECTOR OF CONSULTING SERVICES 02/20/2016 Office visit Dougie Rahman DIRECTOR OF CONSULTING SERVICES 07/02/2015 Office visit WILBERT KOROMA DIRECTOR OF CONSULTING SERVICES 05/30/2015 Office visit WILBERT KOROMA DIRECTOR OF CONSULTING SERVICES 04/25/2015 Laboratory WILBERT KOROMA DIRECTOR OF CONSULTING SERVICES 04/18/2015 Office visit WILBERT KOROMA DIRECTOR OF CONSULTING SERVICES 04/17/2014 Office visit Mary Garza DIRECTOR OF CONSULTING SERVICES 04/10/2014 Office visit Mary Garza DIRECTOR OF CONSULTING SERVICES 01/13/2013 Office visit Pasquale Pagan MD 12/30/2012 Office visit Pasquale Pagan MD 12/09/2012 Office visit Mary Garza DIRECTOR OF CONSULTING SERVICES 10/28/2012 Office visit Pasquale Pagan MD 10/07/2012 Office visit Pasquale Pagan MD 06/07/2012 Office visit WILBERT KOROMA DIRECTOR OF CONSULTING SERVICES 03/18/2012 Office visit WILBERT KOROMA DIRECTOR OF CONSULTING SERVICES 02/12/2012 Laboratory WILBERT KOROMA DIRECTOR OF CONSULTING SERVICES 01/29/2012 Office visit WILBERT KOROMA DIRECTOR OF CONSULTING SERVICES 12/23/2011 Laboratory WILBERT KOROMA DIRECTOR OF CONSULTING SERVICES 11/05/2011 Laboratory WILBERT KOROMA DIRECTOR OF CONSULTING SERVICES 11/04/2011 Office visit WILBERT KOROMA DIRECTOR OF CONSULTING SERVICES 09/02/2011 Office visit WILBERT KOROMA DIRECTOR OF CONSULTING SERVICES 07/26/2010 Office visit Wilbert Koroma DIRECTOR OF CONSULTING SERVICES
--- OUTSIDE RECORDS SUMMARY | 2017-10-19 10:57 | XMS REPORT ---
Author Author Mary Garza [facility] Address [address] [place], [place] [id number] Care Team Providers Care [place] Bottom Maker Name Role Phone Mary Garza PCP Lilian [...] TABLETS DAILY AT BEDTIME CAN ADJUST DISCUSSED Maxalt-RAC SPECIALIST 10 mg oral tablet,disintegrating 01/07/2017 take [...] BEDTIME . DOSAGE CAN BE ADJUSTED DISCUSSED Trulance 3 mg oral tablet 01/27/2017 take 1 tablet (3 mg) by oral route once daily levothyroxine 137 mcg oral tablet 04/15/2017 take 1 tablet (137 mcg) by oral route once daily for 30 days fluoxetine 20 mg oral capsule 05/13/2017 take 1 capsule (20 mg) by oral [...] smoker Alcohol Current some day social use [facility] [place] History of Procedures Date Ordered Description Order [...] Reviewed 05/12/2017 10:07 AM URINE TEST Reviewed 05/12/2017 12:00 AM CHORIONIC GONADOTROPIN TEST Reviewed 10/07/2012 12:00 AM ASSAY OF [...] 04/14/2017 3:42 PM TSH <0.06 uIU/mL 05/12/2017 10:05 AM BETA HCG QUANT <1 mIU/mL 05/12/2017 10:07 AM Test, Urine negative History Of Immunizations Name Date Admin Mfg Name Mfg Code Trade Name Lot# Route Inj Vis Given Vis Pub CVX Td 07/26/2010 sanofi pasteur PMC DECAVAC [id number] Intramuscular Right Deltoid 07/26/2010 02/15/2008 999 History [...] Policy Group Number Start Date BCBS Bcbs [facility] [id number] N/A BCBS [employer] [facility] [id number] Monday, 2010 BCBS [employer]cbs [facility] [id number] N/A [facility] [id number] December [facility] Occupational Medicine [id number] N/A History of Encounters Visit Date Visit Type Provider 05/12/2017 Office visit Mary Garza CHEMICAL PATHOLOGIST 02/16/2017 Office visit Lilian Kay CHEMICAL PATHOLOGIST 01/19/2017 Office visit WILBERT KOROMA CHEMICAL PATHOLOGIST 01/07/2017 Office visit WILBERT KOROMA CHEMICAL PATHOLOGIST 12/18/2016 Office visit Dougie Rahman CHEMICAL PATHOLOGIST 05/30/2016 Office visit Mary Garza CHEMICAL PATHOLOGIST 04/14/2016 Office visit Mary Garza CHEMICAL PATHOLOGIST 04/08/2016 Office visit Mary Garza CHEMICAL PATHOLOGIST 02/20/2016 Office visit Dougie Rahman CHEMICAL PATHOLOGIST 07/02/2015 Office visit WILBERT KOROMA CHEMICAL PATHOLOGIST 05/30/2015 Office visit WILBERT KOROMA CHEMICAL PATHOLOGIST 04/25/2015 Laboratory WILBERT KOROMA CHEMICAL PATHOLOGIST 04/18/2015 Office visit WILBERT KOROMA CHEMICAL PATHOLOGIST 04/17/2014 Office visit Mary Garza CHEMICAL PATHOLOGIST 04/10/2014 Office visit Mary M. Greg CHEMICAL PATHOLOGIST 01/13/2013 Office visit Pasquale Pagan MD 12/30/2012 Office visit Pasquale Pagan MD 12/09/2012 Office visit Mary Garza CHEMICAL PATHOLOGIST 10/28/2012 Office visit Pasquale Pagan MD 10/07/2012 Office visit Pasquale Pagan MD 06/07/2012 Office visit WILBERT KOROMA CHEMICAL PATHOLOGIST 03/18/2012 Office visit WILBERT KOROMA CHEMICAL PATHOLOGIST 02/12/2012 Laboratory WILBERT KOROMA CHEMICAL PATHOLOGIST 01/29/2012 Office visit WILBERT KOROMA CHEMICAL PATHOLOGIST 12/23/2011 Laboratory WILBERT KOROMA CHEMICAL PATHOLOGIST 11/05/2011 Laboratory WILBERT KOROMA CHEMICAL PATHOLOGIST 11/04/2011 Office visit WILBERT KOROMA CHEMICAL PATHOLOGIST 09/02/2011 Office visit WILBERT KOROMA CHEMICAL PATHOLOGIST 07/26/2010 Office visit Wilbert Koroma CHEMICAL PATHOLOGIST
--- OUTSIDE RECORDS SUMMARY | 2017-10-19 10:58 | XMS REPORT ---
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[employer] History of Procedures Date Ordered Description Order [...] Vis Pub CVX Td 07/26/2010 sanofi pasteur [facility] DECAVAC [id number] Intramuscular Right Deltoid 07/26/2010 02/15/2008 999 History [...] 2015 8:28AM Dysuria Apr 25 2015 8:39AM Payers Insurance Name Company Name Plan Name Plan Number Policy Number Policy Group Number Start Date [facility] [id number] December [employer] [place] [id number] Monday, 2010 [employer] [place] [id number] N/A History of Encounters Visit Date Visit Type Provider 05/30/2015 Office visit WILBERT KOROMA SUPERVISOR POST WAVE 04/25/2015 Laboratory WILBERT KOROMA SUPERVISOR POST WAVE 04/18/2015 Office visit WILBERT KOROMA SUPERVISOR POST WAVE 04/17/2014 Office visit Mary Garza SUPERVISOR POST WAVE 04/10/2014 Office visit Mary Garza SUPERVISOR POST WAVE 01/13/2013 Office visit Pasquale Pagan MD 12/30/2012 Office visit Pasquale Pagan MD 12/09/2012 Office visit Mary Garza SUPERVISOR POST WAVE 10/28/2012 Office visit Pasquale Pagan MD 10/07/2012 Office visit Pasquale Pagan MD 06/07/2012 Office visit WILBERT KOROMA SUPERVISOR POST WAVE 03/18/2012 Office visit WILBERT KOROMA SUPERVISOR POST WAVE 02/12/2012 Laboratory WILBERT KOROMA SUPERVISOR POST WAVE 01/29/2012 Office visit WILBERT KOROMA SUPERVISOR POST WAVE 12/23/2011 Laboratory WILBERT KOROMA SUPERVISOR POST WAVE 11/05/2011 Laboratory WILBERT KOROMA SUPERVISOR POST WAVE 11/04/2011 Office visit WILBERT KOROMA SUPERVISOR POST WAVE 09/02/2011 Office visit WILBERT KOROMA SUPERVISOR POST WAVE 07/26/2010 Office visit Wilbert Koroma SUPERVISOR POST WAVE
--- OUTSIDE RECORDS SUMMARY | 2017-10-19 10:59 | XMS REPORT ---
Author Author Lilian Kay [facility] Address [address] [place], [place] [address] Care Team Providers Care Ore Puncher Name Role Phone Lilian Kay PCP Lilian Kay PreferredProvider Allergies and Adverse [...] TABLETS DAILY AT BEDTIME CAN ADJUST DISCUSSED Maxalt-EDGE BANDING MACHINE OFFBEARER 10 mg oral tablet,disintegrating 01/07/2017 take 1 [...] (3 mg) by oral route once daily fluoxetine 20 mg oral capsule 05/13/2017 take 1 capsule (20 mg) by oral route once daily in the evening Tri-Sprintec (28) 0.18/0.215/0.25 mg-35 mcg (28) oral tablet 06/11/20172017 take 1 tablet by oral route once daily for 84 days levothyroxine 112 mcg oral tablet 07/16/2017 08/15/2017 take 1 tablet (112 mcg ) by oral route once daily for 30 days Linzess 72 mcg oral capsule 07/29/2017 take 1 capsule (72 mcg) by oral route once daily on an empty stomach at least 30 minutes before 1st meal of the day Name Start Date Expiration Date SIG Comments [...] HC BMI BSA BMI Percentile O2 Sat(%) 07/15/2017 8:09:00 AM 124 mmHg 76 mmHg 71 bpm 18 rpm 98.8 F 156.375 lbs 62 in 28.6011 kg/m 1.7615 m 100 % 05/12/2017 9:34:00 AM 115 mmHg 63 mmHg [...] smoker Alcohol Current some day social use [employer] History of Procedures Date Ordered Description Order [...] 05/12/2017 12:00 AM CHORIONIC GONADOTROPIN TEST Reviewed 07/15/2017 12:00 AM ASSAY THYROID STIM HORMONE Returned [...] 13.90 g/dLHCT 41.0 %MCV 84.0 fLMCH 28.30 pgHC 33.90 g/dLRDW SD 38 RDW CV 12.60 [...] Vis Given Vis Pub CVX Td 07/26/2010 johnofi vickey [facility] DECAVAC [id number] Intramuscular Right Deltoid 07/26/2010 02/15/2008 999 History [...] 2017 3:20PM Amenorrhea May 12 2017 9:39AM Hypothyroidism, Acquired Jul 15 2017 8:10AM Payers Insurance Name Company Name Plan Name Plan Number Policy Number Policy Group Number Start Date [employer] [place] [id number] Monday, 2010 [employer] [place] [id number] N/A [facility] [id number] December [facility] Occupational Medicine [id number] N/A [employer] [place] [id number] N/A History of Encounters Visit Date Visit Type Provider 07/15/2017 Office visit Lilian Kay TELESCOPE REPAIRER 05/12/2017 Office visit Mary Garza TELESCOPE REPAIRER 02/16/2017 Office visit Lilian Kay TELESCOPE REPAIRER 01/19/2017 Office visit WILBERT KOROMA TELESCOPE REPAIRER 01/07/2017 Office visit WILBERT KOROMA TELESCOPE REPAIRER 12/18/2016 Office visit Dougie Rahman TELESCOPE REPAIRER 05/30/2016 Office visit Mary Garza TELESCOPE REPAIRER 04/14/2016 Office visit Mary Garza TELESCOPE REPAIRER 04/08/2016 Office visit Mary Garza TELESCOPE REPAIRER 02/20/2016 Office visit Dougie Rahman TELESCOPE REPAIRER 07/02/2015 Office visit WILBERT KOROMA TELESCOPE REPAIRER 05/30/2015 Office visit WILBERT KOROMA TELESCOPE REPAIRER 04/25/2015 Laboratory WILBERT KOROMA TELESCOPE REPAIRER 04/18/2015 Office visit WILBERT KOROMA TELESCOPE REPAIRER 04/17/2014 Office visit Mary Garza TELESCOPE REPAIRER 04/10/2014 Office visit Mary Garza TELESCOPE REPAIRER 01/13/2013 Office visit Pasquale Pagan MD 12/30/2012 Office visit Pasquale Pagan MD 12/09/2012 Office visit Mary Montal[place] Greg TELESCOPE REPAIRER 10/28/2012 Office visit Pasquale Pagan MD 10/07/2012 Office visit Pasquale Pagan MD 06/07/2012 Office visit WILBERT KOROMA TELESCOPE REPAIRER 03/18/2012 Office visit WILBERT KOROMA TELESCOPE REPAIRER 02/12/2012 Laboratory WILBERT KOROMA TELESCOPE REPAIRER 01/29/2012 Office visit WILBERT KOROMA TELESCOPE REPAIRER 12/23/2011 Laboratory WILBERT KOROMA TELESCOPE REPAIRER 11/05/2011 Laboratory WILBERT KOROMA TELESCOPE REPAIRER 11/04/2011 Office visit WILBERT KOROMA TELESCOPE REPAIRER 09/02/2011 Office visit WILBERT KOROMA TELESCOPE REPAIRER 07/26/2010 Office visit Wilbert Koroma TELESCOPE REPAIRER
[2017-10-19] MEDS ORDERED: ceFAZolin INJECTION 1,000 MG in NS (IVPB) 50 ML IV ONE (11:00)
--- OUTSIDE RECORDS SUMMARY | 2017-10-19 11:00 | XMS REPORT ---
Author Author WILBERT KOROMA [facility] Address [address] [facility] [address] [address] [place], [place] [address] Care Team Providers Care Car Refinisher Name Role Phone WILBERT KOROMA PCP Unavailable Allergies and Adverse Reactions Name Reaction Notes NO KNOWN DRUG ALLERGIES Plan of Treatment Planned Activity Comments Planned Date Planned Time Plan/Goal LIPID PANEL 04/25/2015 12:00 AM URINALYSIS AUTO W/O SCOPE 04/25/2015 12:00 AM GENERAL HEALTH PANEL 04/25/2015 12:00 AM Medications Active Name Start Date Estimated Completion Date SIG Comments levothyroxine 112 mcg oral tablet 03/24/2013 TAKE ONE TABLET BY MOUTH EVERY DAY levothyroxine 112 mcg oral tablet 04/25/2013 TAKE ONE TABLET BY MOUTH EVERY DAY topiramate 25 mg oral tablet 04/19/2015 take 2 tablets (50 mg) by oral route 2 times per day in the morning and evening Name Start Date Expiration Date SIG [...] HC BMI BSA BMI Percentile O2 Sat(%) 04/18/2015 1:18:00 PM 100 mmHg 60 mmHg [...] smoker Alcohol Current some day social use [place] [facility] [place] History of Procedures Date Ordered Description Order Status 04/25/2015 8:39 AM URINALYSIS AUTO W/O SCOPE [...] neg WBC Est Ur Ql Strip neg History Of Immunizations Name Date Admin Mfg Name Mfg Code Trade Name Lot# Route Inj Vis Given Vis Pub CVX Td 07/26/2010 sanofi pasteur [facility] DECAVAC [id number] Intramuscular Right Deltoid 07/26/2010 02/15/2008 999 History [...] Policy Number Policy Group Number Start Date [facility] [id number] December [employer] [place] [id number] Monday, 2010 [employer] [place] [id number] N/A History of Encounters Visit Date Visit Type Provider 04/25/2015 Laboratory WILBERT KOROMA INTERACTIVE PROJECT MANAGER 04/18/2015 Office visit WILBERT KOROMA INTERACTIVE PROJECT MANAGER 04/17/2014 Office visit Mary Garza INTERACTIVE PROJECT MANAGER 04/10/2014 Office visit Mary Garza INTERACTIVE PROJECT MANAGER 01/13/2013 Office visit Pasquale Pagan MD 12/30/2012 Office visit Pasquale Pagan MD 12/09/2012 Office visit Mary Garza INTERACTIVE PROJECT MANAGER 10/28/2012 Office visit Pasquale Pagan MD 10/07/2012 Office visit Pasquale Pagan MD 06/07/2012 Office visit WILBERT KOROMA INTERACTIVE PROJECT MANAGER 03/18/2012 Office visit WILBERT KOROMA INTERACTIVE PROJECT MANAGER 02/12/2012 Laboratory WILBERT KOROMA INTERACTIVE PROJECT MANAGER 01/29/2012 Office visit WILBERT KOROMA INTERACTIVE PROJECT MANAGER 12/23/2011 Laboratory WILBERT KOROMA INTERACTIVE PROJECT MANAGER 11/05/2011 Laboratory WILBERT KOROMA INTERACTIVE PROJECT MANAGER 11/04/2011 Office visit WILBERT KOROMA INTERACTIVE PROJECT MANAGER 09/02/2011 Office visit WILBERT KOROMA INTERACTIVE PROJECT MANAGER 07/26/2010 Office visit Wilbert Koroma INTERACTIVE PROJECT MANAGER
--- OUTSIDE RECORDS SUMMARY | 2017-10-19 11:00 | XMS REPORT ---
Author Author Mary Garza [facility] Address [address] [place], [place] [address] Care Team Providers Care Argon Tester Name Role Phone Mary Garza PCP Unavailable WILBERT KOROMA PreferredProvider Unavailable Allergies and Adverse Reactions Name Reaction Notes NO KNOWN DRUG ALLERGIES Plan of Treatment Not available. Medications Active Name Start Date Estimated Completion Date SIG Comments levothyroxine 112 mcg oral tablet 03/24/2013 TAKE ONE TABLET BY MOUTH EVERY DAY levothyroxine 112 mcg oral tablet 04/25/2013 TAKE ONE TABLET BY MOUTH EVERY DAY Maxalt-GRAB HOOKER 10 mg oral tablet,disintegrating 05/30/2015 take 1 [...] TABLET BY MOUTH ONCE DAILY IN THE FINAL OPERATIONS TECHNICIAN. topiramate 50 mg oral tablet 03/29/2016 TAKE [...] smoker Alcohol Current some day social use [facility] [employer] History of Procedures Date Ordered Description Order [...] CVX Td 07/26/2010 sanofi pasteur PMC DECAVAC [id number] Intramuscular Right Deltoid 07/26/2010 02/15/2008 999 History [...] Adnexal tenderness, right Apr 08 2016 9:37AM Payers Insurance Name Company Name Plan Name Plan Number Policy Number Policy Group Number Start Date [facility] [id number] N/A [employer] [place] [id number] Monday, 2010 [employer] [place] [id number] N/A [facility] [id number] December [facility] Occupational Medicine [id number] N/A History of Encounters Visit Date Visit Type Provider 04/08/2016 Office visit Mary Garza DENTIST ATTENDANT 02/20/2016 Office visit Dougie Rahman DENTIST ATTENDANT 07/02/2015 Office visit WILBERT KOROMA DENTIST ATTENDANT 05/30/2015 Office visit WILBERT KOROMA DENTIST ATTENDANT 04/25/2015 Laboratory WILBERT KOROMA DENTIST ATTENDANT 04/18/2015 Office visit WILBERT KOROMA DENTIST ATTENDANT 04/17/2014 Office visit Mary Garza DENTIST ATTENDANT 04/10/2014 Office visit Mary Garza DENTIST ATTENDANT 01/13/2013 Office visit Pasquale Pagan MD 12/30/2012 Office visit Pasquale Pgaan MD 12/09/2012 Office visit Mary Garza DENTIST ATTENDANT 10/28/2012 Office visit Pasquale Pagan MD 10/07/2012 Office visit Pasquale Pagan MD 06/07/2012 Office visit WILBERT KOROMA DENTIST ATTENDANT 03/18/2012 Office visit WILBERT KOROMA DENTIST ATTENDANT 02/12/2012 Laboratory WILBERT KOROMA DENTIST ATTENDANT 01/29/2012 Office visit WILBERT KOROMA DENTIST ATTENDANT 12/23/2011 Laboratory WILBERT KOROMA DENTIST ATTENDANT 11/05/2011 Laboratory WILBERT KOROMA DENTIST ATTENDANT 11/04/2011 Office visit WILBERT KOROMA DENTIST ATTENDANT 09/02/2011 Office visit WILBERT KOROMA DENTIST ATTENDANT 07/26/2010 Office visit Wilbert Koroma DENTIST ATTENDANT
--- OUTSIDE RECORDS SUMMARY | 2017-10-19 11:01 | XMS REPORT ---
Author Author Lilian Kay [facility] Address [address] [place], [place] [id number] Care Team Providers Care Supervisory Civil Engineer Name Role Phone Lilian Kay PCP Lilian Kay PreferredProvider Allergies and Adverse Reactions Name Reaction Notes NO KNOWN DRUG ALLERGIES Plan of Treatment Planned Activity Comments Planned Date Planned Time Plan/Goal Urine Culture, [place] Count 09/22/2017 12:00 AM Medications Active Name Start Date [...] TABLETS DAILY AT BEDTIME CAN ADJUST DISCUSSED Maxalt-TRY ON BASTER 10 mg oral tablet,disintegrating 01/07/2017 take 1 [...] oral route once daily in the evening Linzess 72 mcg oral capsule 07/29/2017 take 1 capsule (72 mcg) by oral route once daily on an empty stomach at least 30 minutes before 1st meal of the day Tri-Previfem (28) 0.18/0.215/0.25 mg-35 mcg (28) oral tablet 09/04/2017 TAKE 1 TABLET BY MOUTH ONCE DAILY Cipro 500 mg oral tablet 09/22/2017 09/29/2017 take 1 tablet (500 mg) by oral route every 12 hours for 7 days levothyroxine 112 mcg oral tablet 09/22/2017 take 1 tablet (112 mcg) by oral route once daily for [...] oral route once daily for 30 days Discontinued Name Start Date Discontinued Date [...] 09/2011 Migraine Active 04/19/2015 Headache Active 04/19/2015 Acquired hypothyroidism Active 09/22/2017 Vital Signs Date Time BP-Sys(mm[Hg] BP-Mansi(mm[Hg]) HR(bpm) RR(rpm) Temp WT HT HC BMI BSA BMI Percentile O2 Sat(%) 09/22/2017 9:45:00 AM 128 mmHg 64 mmHg 68 bpm 16 rpm 98.4 F 160.562 lbs 62 in 29.367 kg/m 1.7849 m 100 % 07/15/2017 8:09:00 AM 124 mmHg 76 mmHg 71 bpm 18 rpm 98.8 F 156.375 lbs 62 in 28.60 kg/m2 1.76 m2 100 % 05/12/2017 9:34:00 AM 115 mmHg 63 mmHg 77 bpm 98 F 156 lbs 62 in 28.53 kg/m2 1.7594 m 02/16/2017 2:24:00 PM 129 mmHg 70 mmHg 75 bpm 18 rpm 98.8 F 153.125 lbs 62 in 28.0066 kg/m 1.74 m2 100 % 01/19/2017 3:56:00 PM 118 mmHg 76 mmHg 88 bpm 16 rpm 99.8 F 155.25 lbs 100 % 01/07/2017 5:04:00 PM 118 mmHg 76 mmHg 76 bpm 16 rpm 98.7 F 158.75 lbs 62 in 29.04 kg/m2 1.7748 m 99 % 12/18/2016 2:23:00 PM 120 mmHg 70 mmHg 71 bpm 16 rpm 97.2 F 156.312 lbs 62 in 28.5896 kg/m 1.76 m2 100 % 05/30/2016 11:07:00 AM 119 mmHg 82 mmHg 79 bpm 97.3 F 157 lbs 62 in 28.72 kg/m2 1.765 m 04/14/2016 3:36:00 PM 137 mmHg [...] smoker Alcohol Current some day social use [facility] History of Procedures Date Ordered Description Order [...] 12:00 AM ASSAY THYROID STIM HORMONE Returned 09/22/2017 12:00 AM ASSAY THYROID STIM HORMONE Returned 09/22/2017 10:21 AM URINALYSIS AUTO W/O SCOPE Reviewed 10/07/2012 12:00 AM ASSAY OF GONADOTROPIN [...] mIU/mL 05/12/2017 10:07 AM Test, Urine negative 09/22/2017 10:21 AM Color Ur lt. yellow Glucose Ur-sCnc neg Bilirub Ur Ql Strip neg Ketones Ur Ql Strip neg Sp Gr Ur Qn 1.020 Hgb Ur Ql Strip neg pH Ur- LsCnc 5.5 Prot Ur Ql Strip neg Urobilinogen Ur-mCnc 0.2eu/dl Nitrite Ur Ql Strip neg WBC Est Ur Ql Strip moderate History Of Immunizations Name Date Admin [facility] Name Mf Code Trade Name Lot# Route Inj Vis Given Vis Pub CVX Td 07/26/2010 sanofi pasteur PMC DECAVAC [id number] Intramuscular Right Deltoid 07/26/2010 02/15/2008 999 History of Past Illness Name Date of Onset Comments Hypothyroidism Abnormal Uterine Bleeding 09/2011 Migraine 04/19/2015 Headache 04/19/2015 Insect bite, Infected Jul 26 2010 9:36AM Acquired hypothyroidism 09/22/2017 Sinusitis, Acute Sep 02 2011 2:50PM Pharyngitis, [...] 9:39AM Hypothyroidism, Acquired Jul 15 2017 8:10AM Migraine Sep 22 2017 9:46AM Acquired hypothyroidism Sep 22 2017 9:46AM Dysuria Sep 22 2017 9:46AM Payers Insurance Name Company Name Plan Name Plan Number Policy Number Policy Group Number Start Date [facility] - Community Plan [facility] Comm [id number] N/A BCBS [facility] [id number] Monday, [address] [facility] [id number] N/A [facility] [id number] December [facility] Occupational Medicine [id number] N/A [employer] [place] [id number] N/A History of Encounters Visit Date Visit Type Provider 09/22/2017 Office visit Lilian Kay DRIER TRANSFER CAR OPERATOR 07/15/2017 Office visit Lilian Kay DRIER TRANSFER CAR OPERATOR 05/12/2017 Office visit Mary Garza DRIER TRANSFER CAR OPERATOR 02/16/2017 Office visit Lilian Kay DRIER TRANSFER CAR OPERATOR 01/19/2017 Office visit WIBLERT KOROMA DRIER TRANSFER CAR OPERATOR 01/07/2017 Office visit WILBERT KOROMA DRIER TRANSFER CAR OPERATOR 12/18/2016 Office visit Dougie Rahman DRIER TRANSFER CAR OPERATOR 05/30/2016 Office visit Mary Garza DRIER TRANSFER CAR OPERATOR 04/14/2016 Office visit Mary Garza DRIER TRANSFER CAR OPERATOR 04/08/2016 Office visit Mary Garza DRIER TRANSFER CAR OPERATOR 02/20/2016 Office visit Dougie Rahman DRIER TRANSFER CAR OPERATOR 07/02/2015 Office visit WILBERT KOROMA DRIER TRANSFER CAR OPERATOR 05/30/2015 Office visit WILBERT KOROMA DRIER TRANSFER CAR OPERATOR 04/25/2015 Laboratory WILBERT KOROMA DRIER TRANSFER CAR OPERATOR 04/18/2015 Office visit WILBERT KOROMA DRIER TRANSFER CAR OPERATOR 04/17/2014 Office visit Mary Garza DRIER TRANSFER CAR OPERATOR 04/10/2014 Office visit Mary Garza DRIER TRANSFER CAR OPERATOR 01/13/2013 Office visit Pasquale Pagan MD 12/30/2012 Office visit Pasquale Pagan MD 12/09/2012 Office visit Mary Garza DRIER TRANSFER CAR OPERATOR 10/28/2012 Office visit Pasquale Pagan MD 10/07/2012 Office visit Pasquale Pagan MD 06/07/2012 Office visit WILBERT KOROMA DRIER TRANSFER CAR OPERATOR 03/18/2012 Office visit WILBERT KOROMA DRIER TRANSFER CAR OPERATOR 02/12/2012 Laboratory WILBERT KOROMA DRIER TRANSFER CAR OPERATOR 01/29/2012 Office visit WILBERT KOROMA DRIER TRANSFER CAR OPERATOR 12/23/2011 Laboratory WILBERT KOROMA DRIER TRANSFER CAR OPERATOR 11/05/2011 Laboratory WILBERT KOROMA DRIER TRANSFER CAR OPERATOR 11/04/2011 Office visit WILBERT KOROMA DRIER TRANSFER CAR OPERATOR 09/02/2011 Office visit WILBERT KOROMA DRIER TRANSFER CAR OPERATOR 07/26/2010 Office visit Wilbert Koroma DRIER TRANSFER CAR OPERATOR
--- OUTSIDE RECORDS SUMMARY | 2017-10-19 11:02 | XMS REPORT ---
Author Author WILBERT KOROMA [facility] Address [address] [place], [place] [id number] Care Team Providers Care Education Program Specialist Name Role Phone WILBERT KOROMA PCP Unavailable [...] (150 mcg) by oral route once daily Maxalt-FAMILY SERVICES SPECIALIST 10 mg oral tablet,disintegrating 01/07/2017 take [...] smoker Alcohol Current some day social use [employer] [place] History of Procedures Date Ordered Description Order [...] CVX Td 07/26/2010 sanofi pasteur PMC DECAVAC [id number] Intramuscular Right Deltoid 07/26/2010 02/15/2008 999 History [...] Group Number Start Date [employer] [place] [id number] N/A [employer] [place] [id number] Monday, 2010 [employer] [place] [id number] N/A [facility] [id number] December [facility] Occupational Medicine [id number] N/A History of Encounters Visit Date Visit Type Provider 01/07/2017 Office visit WILBERT KOROMA DEPUTY SHERIFF 12/18/2016 Office visit Dougie Rahman DEPUTY SHERIFF 05/30/2016 Office visit Mary Garza DEPUTY SHERIFF 04/14/2016 Office visit Mary Garza DEPUTY SHERIFF 04/08/2016 Office visit Mary Garza DEPUTY SHERIFF 02/20/2016 Office visit Dougie Rahman DEPUTY SHERIFF 07/02/2015 Office visit WILBERT KOROMA DEPUTY SHERIFF 05/30/2015 Office visit WILBERT KOROMA DEPUTY SHERIFF 04/25/2015 Laboratory WILBERT KOROMA DEPUTY SHERIFF 04/18/2015 Office visit WILBERT KOROMA DEPUTY SHERIFF 04/17/2014 Office visit Mary Garza DEPUTY SHERIFF 04/10/2014 Office visit Mary Garza DEPUTY SHERIFF 01/13/2013 Office visit Pasquale Pagan MD 12/30/2012 Office visit Pasquale Pagan MD 12/09/2012 Office visit Mary Garza DEPUTY SHERIFF 10/28/2012 Office visit Pasquale Pagan MD 10/07/2012 Office visit Pasquale Pagan MD 06/07/2012 Office visit WILBERT KOROMA DEPUTY SHERIFF 03/18/2012 Office visit WILBERT KOROMA DEPUTY SHERIFF 02/12/2012 Laboratory WILBERT KOROMA DEPUTY SHERIFF 01/29/2012 Office visit WILBERT KOROMA DEPUTY SHERIFF 12/23/2011 Laboratory WILBERT KOROMA DEPUTY SHERIFF 11/05/2011 Laboratory WILBERT KOROMA DEPUTY SHERIFF 11/04/2011 Office visit WILBERT KOROMA DEPUTY SHERIFF 09/02/2011 Office visit WILBERT KOROMA DEPUTY SHERIFF 07/26/2010 Office visit Wilbert Koroma DEPUTY SHERIFF
--- OUTSIDE RECORDS SUMMARY | 2017-10-19 11:03 | XMS REPORT ---
Author Author WILBERT KOROMA [facility] Address [address] [place], [place] [id number] Care Team Providers Care Measurement Supervisor Name Role Phone WILBERT KOROMA PCP [...] (150 mcg) by oral route once daily Maxalt-RAILROAD MAINTENANCE CLERK 10 mg oral tablet,disintegrating 01/07/2017 take 1 [...] smoker Alcohol Current some day social use [facility] [employer] History of Procedures Date Ordered Description Order [...] CVX Td 07/26/2010 sanofi pasteur PMC DECAVAC [id number] Intramuscular Right Deltoid 07/26/2010 02/15/2008 999 History [...] Group Number Start Date [employer] [place] [id number] N/A [employer] [place] [id number] Monday, 2010 [employer] [place] [id number] N/A [facility] [id number] December [facility] Occupational Medicine [id number] N/A History of Encounters Visit Date Visit Type Provider 01/07/2017 Office visit WILBERT KOROMA WINDOWS SERVER ARCHITECT 12/18/2016 Office visit Dougie Rahman WINDOWS SERVER ARCHITECT 05/30/2016 Office visit Mary Garza WINDOWS SERVER ARCHITECT 04/14/2016 Office visit Mary Garza WINDOWS SERVER ARCHITECT 04/08/2016 Office visit Mary Garza WINDOWS SERVER ARCHITECT 02/20/2016 Office visit Dougie Rahman WINDOWS SERVER ARCHITECT 07/02/2015 Office visit WILBERT KOROMA WINDOWS SERVER ARCHITECT 05/30/2015 Office visit WILBERT KOROMA WINDOWS SERVER ARCHITECT 04/25/2015 Laboratory WILBERT KOROMA WINDOWS SERVER ARCHITECT 04/18/2015 Office visit WILBERT KOROMA WINDOWS SERVER ARCHITECT 04/17/2014 Office visit Mary Garza WINDOWS SERVER ARCHITECT 04/10/2014 Office visit Mary Garza WINDOWS SERVER ARCHITECT 01/13/2013 Office visit Pasquale Pagan MD 12/30/2012 Office visit Pasquale Pagan MD 12/09/2012 Office visit Mary Garza WINDOWS SERVER ARCHITECT 10/28/2012 Office visit Pasquale Pagan MD 10/07/2012 Office visit Pasquale Pagan MD 06/07/2012 Office visit WILBERT KOROMA WINDOWS SERVER ARCHITECT 03/18/2012 Office visit WILBERT KOROMA WINDOWS SERVER ARCHITECT 02/12/2012 Laboratory WILBERT KOROMA WINDOWS SERVER ARCHITECT 01/29/2012 Office visit WILBERT KOROMA WINDOWS SERVER ARCHITECT 12/23/2011 Laboratory WILBERT KOROMA WINDOWS SERVER ARCHITECT 11/05/2011 Laboratory WILBERT KOROMA WINDOWS SERVER ARCHITECT 11/04/2011 Office visit WILBERT KOROMA WINDOWS SERVER ARCHITECT 09/02/2011 Office visit WILBERT KOROMA WINDOWS SERVER ARCHITECT 07/26/2010 Office visit Wilbert Koroma WINDOWS SERVER ARCHITECT
--- OUTSIDE RECORDS SUMMARY | 2017-10-19 11:04 | XMS REPORT ---
Author Author Lilian Kay [facility] Address [address] [place], [place] [address] Care Team Providers Care Teacher Physically Impaired Name Role Phone Lilian Kay PCP Lilian Kay PreferredProvider Allergies and Adverse Reactions Name Reaction Notes NO KNOWN DRUG ALLERGIES Plan of Treatment Planned Activity Comments Planned Date Planned Time Plan/Goal TSH 07/15/2017 12:00 AM Medications Active Name Start Date [...] TABLETS DAILY AT BEDTIME CAN ADJUST DISCUSSED Maxalt-SENIOR MAINTENANCE MECHANIC 10 mg oral tablet,disintegrating 01/07/2017 take 1 [...] oral route once daily in the evening levothyroxine 137 mcg oral tablet 06/10/2017 take 1 tablet (137 mcg) by oral route once daily for 30 days Tri-Sprintec (28) 0.18/0.215/0.25 mg-35 mcg (28) oral tablet 06/11/20172017 take 1 tablet by oral route once daily for 84 days Name Start Date Expiration Date SIG [...] smoker Alcohol Current some day social use [facility] [employer] History of Procedures Date Ordered Description Order [...] Vis Given Vis Pub CVX Td 07/26/2010 [facility] DECAVA [id number] Intramuscular Right Deltoid 07/26/2010 02/15/2008 999 History [...] Policy Group Number Start Date BCBS Bcbs [facility] [id number] Monday, 2010 [employer] [place] [id number] N/A [facility] [id number] December [facility] Occupational Medicine [id number] N/A [employer] [place] [id number] N/A History of Encounters Visit Date Visit Type Provider 07/15/2017 Office visit Lilian Kay SYNTHETIC CLOTH BINDING CUTTER 05/12/2017 Office visit Mary Garza SYNTHETIC CLOTH BINDING CUTTER 02/16/2017 Office visit Lilian Kay SYNTHETIC CLOTH BINDING CUTTER 01/19/2017 Office visit WILBERT KOROMA SYNTHETIC CLOTH BINDING CUTTER 01/07/2017 Office visit WILBERT KOROMA SYNTHETIC CLOTH BINDING CUTTER 12/18/2016 Office visit Dougie Rahman SYNTHETIC CLOTH BINDING CUTTER 05/30/2016 Office visit Mary Garza SYNTHETIC CLOTH BINDING CUTTER 04/14/2016 Office visit Mary Garza SYNTHETIC CLOTH BINDING CUTTER 04/08/2016 Office visit Mary Garza SYNTHETIC CLOTH BINDING CUTTER 02/20/2016 Office visit Dougie Rahman SYNTHETIC CLOTH BINDING CUTTER 07/02/2015 Office visit WILBERT KOROMA SYNTHETIC CLOTH BINDING CUTTER 05/30/2015 Office visit WILBERT KOROMA SYNTHETIC CLOTH BINDING CUTTER 04/25/2015 Laboratory WILBERT KOROMA SYNTHETIC CLOTH BINDING CUTTER 04/18/2015 Office visit WILBERT KOROMA SYNTHETIC CLOTH BINDING CUTTER 04/17/2014 Office visit Mary Garza SYNTHETIC CLOTH BINDING CUTTER 04/10/2014 Office visit Mary Montalvo Greg SYNTHETIC CLOTH BINDING CUTTER 01/13/2013 Office visit Pasquale Pagan MD 12/30/2012 Office visit Pasquale Pagan MD 12/09/2012 Office visit Mary Selvin Greg SYNTHETIC CLOTH BINDING CUTTER 10/28/2012 Office visit Pasquale Pagan MD 10/07/2012 Office visit Pasquale Pagan MD 06/07/2012 Office visit WILBERT KOROMA SYNTHETIC CLOTH BINDING CUTTER 03/18/2012 Office visit WILBERT KOROMA SYNTHETIC CLOTH BINDING CUTTER 02/12/2012 Laboratory WILBERT KOROMA SYNTHETIC CLOTH BINDING CUTTER 01/29/2012 Office visit WILBERT KOROMA SYNTHETIC CLOTH BINDING CUTTER 12/23/2011 Laboratory WILBERT KOROMA SYNTHETIC CLOTH BINDING CUTTER 11/05/2011 Laboratory WILBERT KOROMA SYNTHETIC CLOTH BINDING CUTTER 11/04/2011 Office visit WILBERT KOROMA SYNTHETIC CLOTH BINDING CUTTER 09/02/2011 Office visit WILBERT KOROMA SYNTHETIC CLOTH BINDING CUTTER 07/26/2010 Office visit Wilbert Koroma SYNTHETIC CLOTH BINDING CUTTER
--- OUTSIDE RECORDS SUMMARY | 2017-10-19 11:05 | XMS REPORT ---
Author Author Lilian Kay [facility] Address [address] [place], [place] [address] Care Team Providers Care Physician General Practice Name Role Phone Lilian Kay PCP Lilian Kay PreferredProvider Allergies and Adverse Reactions Name Reaction Notes NO KNOWN DRUG ALLERGIES Plan of Treatment Planned Activity Comments Planned Date Planned Time Plan/Goal Urine Culture, [place] Count 09/22/2017 12:00 AM TSH 09/22/2017 12:00 AM Medications Active Name Start [...] TABLETS DAILY AT BEDTIME CAN ADJUST DISCUSSED Maxalt-IMPORT EXPORT MANAGER 10 mg oral tablet,disintegrating 01/07/2017 take [...] minutes before 1st meal of the day levothyroxine 112 mcg oral tablet 08/18/2017 take 1 tablet (112 mcg) by oral route once daily for 30 days Tri-Previfem (28) 0.18/0.215/0.25 mg-35 mcg (28) oral tablet 09/04/2017 TAKE 1 TABLET BY MOUTH ONCE DAILY Cipro 500 mg oral tablet 09/22/2017 09/29/2017 take 1 tablet (500 mg) by oral route every 12 hours for 7 days Name Start Date Expiration Date SIG [...] smoker Alcohol Current some day social use [facility] [email or web address] [facility] [employer] History of Procedures Date Ordered Description Order [...] moderate History Of Immunizations Name Date Admin [facility] Name Mfg Code Trade Name Lot# Route Inj Vis Given Vis Pub CVX Td 07/26/2010 sanofi pasteur PMC DECAVAC [id number] Intramuscular Right Deltoid 07/26/2010 02/15/2008 999 History [...] Policy Number Policy Group Number Start Date [facility] - Community Plan [facility] Comm [id number] N/A BCBS Bcbs [facility] [id number] Monday, 2010 [employer]BS [employer] [place] [id number] N/A [facility] [id number] December [facility] Occupational Medicine [id number] N/A [employer] [place] [id number] N/A History of Encounters Visit Date Visit Type Provider 09/22/2017 Office visit Lilian Kay BACKFILLER 07/15/2017 Office visit Lilian Kay BACKFILLER 05/12/2017 Office visit Mary Garza BACKFILLER 02/16/2017 Office visit Lilian Kay BACKFILLER 01/19/2017 Office visit WILBERT KOROMA BACKFILLER 01/07/2017 Office visit WILBERT KOROMA BACKFILLER 12/18/2016 Office visit Dougie Rahman BACKFILLER 05/30/2016 Office visit Mary Garza BACKFILLER 04/14/2016 Office visit Mary Garza BACKFILLER 04/08/2016 Office visit Mary Garza BACKFILLER 02/20/2016 Office visit Dougie Rahman BACKFILLER 07/02/2015 Office visit WILBERT KOROMA BACKFILLER 05/30/2015 Office visit WILBERT KOROMA BACKFILLER 04/25/2015 Laboratory WILBERT KOROMA BACKFILLER 04/18/2015 Office visit WILBERT KOROMA BACKFILLER 04/17/2014 Office visit Mary Garza BACKFILLER 04/10/2014 Office visit Mary Garza BACKFILLER 01/13/2013 Office visit Pasquale Pagan MD 12/30/2012 Office visit Pasquale Pagan MD 12/09/2012 Office visit Mary Garza BACKFILLER 10/28/2012 Office visit Pasquale Pagan MD 10/07/2012 Office visit Pasquale Pagan MD 06/07/2012 Office visit WILBERT KOROMA BACKFILLER 03/18/2012 Office visit WILBERT KOROMA BACKFILLER 02/12/2012 Laboratory WILBERT KOROMA BACKFILLER 01/29/2012 Office visit WILBERT KOROMA BACKFILLER 12/23/2011 Laboratory WILBERT KOROMA BACKFILLER 11/05/2011 Laboratory WILBERT KOROMA BACKFILLER 11/04/2011 Office visit WILBERT KOROMA BACKFILLER 09/02/2011 Office visit WILBERT KOROMA BACKFILLER 07/26/2010 Office visit Wilbert Koroma BACKFILLER
--- OUTSIDE RECORDS SUMMARY | 2017-10-19 11:05 | XMS REPORT ---
Author Author Lilian Kay [facility] Address [address] [place], [place] [phone] Care Team Providers Care Scorer Single Name Role Phone Lilian Kay PCP Lilian Kay PreferredProvider Allergies and Adverse Reactions Name Reaction Notes NO KNOWN DRUG ALLERGIES Plan of Treatment Planned Activity Comments Planned Date Planned Time Plan/Goal Urine Culture, [place] Count 09/22/2017 12:00 AM TSH 09/22/2017 12:00 [...] TABLETS DAILY AT BEDTIME CAN ADJUST DISCUSSED Maxalt-RN ASSESSMENT 10 mg oral tablet,disintegrating 01/07/2017 take 1 [...] smoker Alcohol Current some day social [facility] [employer] History of Procedures Date Ordered Description Order [...] CVX Td 07/26/2010 sanofi pasteur PMC DECAVAC [id number] Intramuscular Right Deltoid 07/26/2010 02/15/2008 999 History [...] Policy Number Policy Group Number Start Date [facility] - Community Plan [facility] [id number] N/A [employer] [place] [id number] Monday, 2010 [employer] [place] [id number] N/A [facility] [id number] December [facility] Occupational Medicine [id number] N/A [employer] [place] [id number] N/A History of Encounters Visit Date Visit Type Provider 09/22/2017 Office visit Lilian Kay APRON OPERATOR 07/15/2017 Office visit Lilian Kay APRON OPERATOR 05/12/2017 Office visit Mary Garza APRON OPERATOR 02/16/2017 Office visit Lilian Kay APRON OPERATOR 01/19/2017 Office visit WILBERT KOROMA APRON OPERATOR 01/07/2017 Office visit WILBERT KOROMA APRON OPERATOR 12/18/2016 Office visit Dougie Rahman APRON OPERATOR 05/30/2016 Office visit Mary Garza APRON OPERATOR 04/14/2016 Office visit Mary Garza APRON OPERATOR 04/08/2016 Office visit Mary Garza APRON OPERATOR 02/20/2016 Office visit Dougie Rahman APRON OPERATOR 07/02/2015 Office visit WILBERT KOROMA APRON OPERATOR 05/30/2015 Office visit WILBERT KOROMA APRON OPERATOR 04/25/2015 Laboratory WILBERT KOROMA APRON OPERATOR 04/18/2015 Office visit WILBERT KOROMA APRON OPERATOR 04/17/2014 Office visit Mary Garza APRON OPERATOR 04/10/2014 Office visit Mary Garza APRON OPERATOR 01/13/2013 Office visit Pasquale Pagan MD 12/30/2012 Office visit Pasquale Pagan MD 12/09/2012 Office visit Mary Garza APRON OPERATOR 10/28/2012 Office visit Pasquale Pagan MD 10/07/2012 Office visit Pasquale Pagan MD 06/07/2012 Office visit WILBERT KOROMA APRON OPERATOR 03/18/2012 Office visit WILBERT KOROMA APRON OPERATOR 02/12/2012 Laboratory WILBERT KOROMA APRON OPERATOR 01/29/2012 Office visit WILBERT KOROMA APRON OPERATOR 12/23/2011 Laboratory WILBERT KOROMA APRON OPERATOR 11/05/2011 Laboratory WILBERT KOROMA APRON OPERATOR 11/04/2011 Office visit WILBERT KOROMA APRON OPERATOR 09/02/2011 Office visit WILBERT KOROMA APRON OPERATOR 07/26/2010 Office visit Wilbert Koroma APRON OPERATOR
--- OUTSIDE RECORDS SUMMARY | 2017-10-19 11:06 | XMS REPORT ---
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[employer] History of Procedures Date Ordered Description Order [...] Td 07/26/2010 sanofi pasteur [facility] DECAVAC [id number] Intramuscular Right Deltoid 07/26/2010 02/15/2008 999 History [...] Policy Number Policy Group Number Start Date [facility] [id number] December [employer] [place] [id number] Monday, 2010 [employer] [place] [id number] N/A History of Encounters Visit Date Visit Type Provider 05/30/2015 Office visit WILBERT KOROMA TICKET PRINTER 04/25/2015 Laboratory WILBERT KOROMA TICKET PRINTER 04/18/2015 Office visit WILBERT KOROMA TICKET PRINTER 04/17/2014 Office visit Mary Garza TICKET PRINTER 04/10/2014 Office visit Mary Garza TICKET PRINTER 01/13/2013 Office visit Pasquale Pagan MD 12/30/2012 Office visit Pasquale Pagan MD 12/09/2012 Office visit Mary Garza TICKET PRINTER 10/28/2012 Office visit Pasquale Pagan MD 10/07/2012 Office visit Pasquale Pagan MD 06/07/2012 Office visit WILBERT KOROMA TICKET PRINTER 03/18/2012 Office visit WILBERT KOROMA TICKET PRINTER 02/12/2012 Laboratory WILBERT KOROMA TICKET PRINTER 01/29/2012 Office visit WILBERT KOROMA TICKET PRINTER 12/23/2011 Laboratory WILBERT KOROMA TICKET PRINTER 11/05/2011 Laboratory WILBERT KOROMA TICKET PRINTER 11/04/2011 Office visit WILBERT KOROMA TICKET PRINTER 09/02/2011 Office visit WILBERT KOROMA TICKET PRINTER 07/26/2010 Office visit Wilbert Koroma TICKET PRINTER
--- OUTSIDE RECORDS SUMMARY | 2017-10-19 11:07 | XMS REPORT ---
Author Author Mary Garza [facility] Address [address] [facility] [address] [place], [place] [id number] Care Team Providers Care Molded Frames Assembler Name Role Phone Mary Garza PCP Unavailable WILBERT KOROMA PreferredProvider Unavailable Allergies and Adverse Reactions Name Reaction Notes NO KNOWN DRUG ALLERGIES Plan of Treatment Not available. Medications Active Name Start Date Estimated Completion Date SIG Comments levothyroxine 112 mcg oral tablet 03/24/2013 TAKE ONE TABLET BY MOUTH EVERY DAY levothyroxine 112 mcg oral tablet 04/25/2013 TAKE ONE TABLET BY MOUTH EVERY DAY Maxalt-GROUP FITNESS MANAGER 10 mg oral tablet,disintegrating 05/30/2015 take [...] TABLET BY MOUTH ONCE DAILY IN THE COOK MANAGER. topiramate 50 mg oral tablet 03/29/2016 [...] smoker Alcohol Current some day social use [facility] History of Procedures Date Ordered Description Order [...] negative History Of Immunizations Name Date Admin Mf Name Mf Code Trade Name Lot# Route Inj Vis Given Vis Pub CVX Td 07/26/2010 sanofi pasteur PMC DECAVAC [id number] Intramuscular Right Deltoid 07/26/2010 02/15/2008 999 History [...] Group Number Start Date [employer] [place] [id number] N/A [employer] [place] [id number] Monday, 2010 [employer] [place] [id number] N/A [facility] [id number] December [facility] Occupational Medicine [id number] N/A History of Encounters Visit Date Visit Type Provider 04/08/2016 Office visit Mary Garza MECHANICAL AND AUTO BODY CAR CHECKER 02/20/2016 Office visit Dougie Rahman MECHANICAL AND AUTO BODY CAR CHECKER 07/02/2015 Office visit WILBERT KOROMA MECHANICAL AND AUTO BODY CAR CHECKER 05/30/2015 Office visit WILBERT KOROMA MECHANICAL AND AUTO BODY CAR CHECKER 04/25/2015 Laboratory WILBERT KOROMA MECHANICAL AND AUTO BODY CAR CHECKER 04/18/2015 Office visit WILBERT KOROMA MECHANICAL AND AUTO BODY CAR CHECKER 04/17/2014 Office visit Mary Garza MECHANICAL AND AUTO BODY CAR CHECKER 04/10/2014 Office visit Mary Garza MECHANICAL AND AUTO BODY CAR CHECKER 01/13/2013 Office visit Pasquale Pagan MD 12/30/2012 Office visit Pasquale Pagan MD 12/09/2012 Office visit Mary Garza MECHANICAL AND AUTO BODY CAR CHECKER 10/28/2012 Office visit Pasquale Pagan MD 10/07/2012 Office visit Pasquale Pagan MD 06/07/2012 Office visit WILBERT KOROMA MECHANICAL AND AUTO BODY CAR CHECKER 03/18/2012 Office visit WILBERT KOROMA MECHANICAL AND AUTO BODY CAR CHECKER 02/12/2012 Laboratory WILBERT KOROMA MECHANICAL AND AUTO BODY CAR CHECKER 01/29/2012 Office visit WILBERT KOROMA MECHANICAL AND AUTO BODY CAR CHECKER 12/23/2011 Laboratory WILBERT KOROMA MECHANICAL AND AUTO BODY CAR CHECKER 11/05/2011 Laboratory WILBERT KOROMA MECHANICAL AND AUTO BODY CAR CHECKER 11/04/2011 Office visit WILBERT KOROMA MECHANICAL AND AUTO BODY CAR CHECKER 09/02/2011 Office visit WILBERT KOROMA MECHANICAL AND AUTO BODY CAR CHECKER 07/26/2010 Office visit Wilbert Koroma MECHANICAL AND AUTO BODY CAR CHECKER
--- OUTSIDE RECORDS SUMMARY | 2017-10-19 11:07 | XMS REPORT ---
Author Author Mary Garza [facility] Address [address] [facility] [address] [place], [place] [phone] Care Team Providers Care Net Ui Developer Name Role Phone Mary Garza PCP Unavailable WILBERT KOROMA PreferredProvider Unavailable Allergies and Adverse Reactions Name Reaction Notes NO KNOWN DRUG ALLERGIES Plan of Treatment Planned Activity Comments Planned Date Planned Time Plan/Goal Pap smear auto thin prep w manual MD screen 05/30/2016 11:27 AM Transabdominal / Transvaginal US (non-OB) 06/02/2016 12:00 AM Transabdominal / Transvaginal US (non-OB) 06/02/2016 12:00 AM Medications Active Name Start Date Estimated Completion Date SIG Comments levothyroxine 112 mcg oral tablet 03/24/2013 TAKE ONE TABLET BY MOUTH EVERY DAY levothyroxine 112 mcg oral tablet 04/25/2013 TAKE ONE TABLET BY MOUTH EVERY DAY Maxalt-HUMAN PERFORMANCE CONSULTANT 10 mg oral tablet,disintegrating 05/30/2015 take 1 [...] TABLET BY MOUTH ONCE DAILY IN THE ACID ETCH OPERATOR. topiramate 50 mg oral tablet 03/29/2016 TAKE 1 TABLET BY MOUTH DAILY IN THE MORNING AND TAKE 1 AND 1/2 TABLETS DAILY AT BEDTIME CAN ADJUST DISCUSSED Tri-Sprintec (28) 0.18/0.215/0.25 mg-35 mcg (28) oral tablet 05/14/20162016 take 1 tablet by oral route once [...] smoker Alcohol Current some day social use [facility] History of Procedures Date Ordered Description Order [...] CVX Td 07/26/2010 sanofi pasteur PMC DECAVAC [id number] Intramuscular Right Deltoid 07/26/2010 02/15/2008 999 History [...] Other chronic pain May 30 2016 11:27AM Payers Insurance Name Company Name Plan Name Plan Number Policy Number Policy Group Number Start Date [employer] [place] [id number] N/A [employer] [place] [id number] Monday, 2010 [employer] [place] [id number] N/A [facility] [id number] December [facility] Occupational Medicine [id number] N/A History of Encounters Visit Date Visit Type Provider 05/30/2016 Office visit Mary Garza ENTRY LEVEL 04/14/2016 Office visit Mary Garza ENTRY LEVEL 04/08/2016 Office visit Mary Garza ENTRY LEVEL 02/20/2016 Office visit Dougie Rahman ENTRY LEVEL 07/02/2015 Office visit WILBERT KOROMA ENTRY LEVEL 05/30/2015 Office visit WILBERT KOROMA ENTRY LEVEL 04/25/2015 Laboratory WILBERT KOROMA ENTRY LEVEL 04/18/2015 Office visit WILBERT KOROMA ENTRY LEVEL 04/17/2014 Office visit Mary Garza ENTRY LEVEL 04/10/2014 Office visit Mary Garza ENTRY LEVEL 01/13/2013 Office visit Pasquale Pagan MD 12/30/2012 Office visit Pasquale Pagan MD 12/09/2012 Office visit Mary Garza ENTRY LEVEL 10/28/2012 Office visit Pasquale Pagan MD 10/07/2012 Office visit Pasquale Pagan MD 06/07/2012 Office visit WILBERT KOROMA ENTRY LEVEL 03/18/2012 Office visit WILBERT KOROMA ENTRY LEVEL 02/12/2012 Laboratory WILBERT KOROMA ENTRY LEVEL 01/29/2012 Office visit WILBERT KOROMA ENTRY LEVEL 12/23/2011 Laboratory WILBERT KOROMA ENTRY LEVEL 11/05/2011 Laboratory WILBERT KOROMA ENTRY LEVEL 11/04/2011 Office visit WILBERT KOROMA ENTRY LEVEL 09/02/2011 Office visit WILBERT KOROMA ENTRY LEVEL 07/26/2010 Office visit Wilbert Koroma ENTRY LEVEL
--- OUTSIDE RECORDS SUMMARY | 2017-10-19 11:08 | XMS REPORT ---
Author Author Mary Garza [facility] Address [address] [facility] [address] [place], [place] [id number] Care Team Providers Care Labor Training Manager Name Role Phone Mary Garza PCP Unavailable WILBERT KOROMA PreferredProvider Unavailable Allergies and Adverse Reactions Name Reaction Notes NO KNOWN DRUG ALLERGIES Plan of Treatment Planned Activity Comments Planned Date Planned Time Plan/Goal Transabdominal / Transvaginal US (non-OB) 06/02/2016 12:00 AM Transabdominal / Transvaginal US (non-OB) 06/02/2016 12:00 AM Pap smear auto thin prep w manual MD screen 05/30/2016 12:00 AM Pelvic ultrasound, complete 05/30/2016 12:00 AM Medications Active Name Start Date Estimated Completion Date SIG Comments levothyroxine 112 mcg oral tablet 03/24/2013 TAKE ONE TABLET BY MOUTH EVERY DAY levothyroxine 112 mcg oral tablet 04/25/2013 TAKE ONE TABLET BY MOUTH EVERY DAY Maxalt-CLEAN UP PERSON 10 mg oral tablet,disintegrating 05/30/2015 take 1 [...] TABLET BY MOUTH ONCE DAILY IN THE NETWORK OPERATIONS TECHNICIAN. topiramate 50 mg oral tablet 03/29/2016 TAKE 1 TABLET BY MOUTH DAILY IN THE MORNING AND TAKE 1 AND 1/2 TABLETS DAILY AT BEDTIME CAN ADJUST DISCUSSED Zorvolex 35 mg oral capsule 05/30/2016 08/28/2016 [...] smoker Alcohol Current some day social use Project [facility] BRAIN History of Procedures Date Ordered Description Order [...] Vis Pub CVX Td 07/26/2010 sanofi pasteur [facility] DECAVAC [id number] Intramuscular Right Deltoid 07/26/2010 02/15/2008 999 History [...] Other chronic pain May 30 2016 11:13AM Payers Insurance Name Company Name Plan Name Plan Number Policy Number Policy Group Number Start Date [employer] [place] [id number] N/A [employer] [place] [place] [id number] Monday, 2010 [employer] [place] [id number] N/A [facility] [id number] December [facility] Occupational Medicine [id number] N/A History of Encounters Visit Date Visit Type Provider 05/30/2016 Office visit Mary Garza MOLDING LINE ASSISTANT 04/14/2016 Office visit Mary Garza MOLDING LINE ASSISTANT 04/08/2016 Office visit Mary Garza MOLDING LINE ASSISTANT 02/20/2016 Office visit Dougie Rahman MOLDING LINE ASSISTANT 07/02/2015 Office visit WILBERT KOROMA MOLDING LINE ASSISTANT 05/30/2015 Office visit WILBERT KOROMA MOLDING LINE ASSISTANT 04/25/2015 Laboratory WILBERT KOROMA MOLDING LINE ASSISTANT 04/18/2015 Office visit WILBERT KOROMA MOLDING LINE ASSISTANT 04/17/2014 Office visit Mary Garza MOLDING LINE ASSISTANT 04/10/2014 Office visit Mary M. Greg MOLDING LINE ASSISTANT 01/13/2013 Office visit Pasquale Pagan MD 12/30/2012 Office visit Pasquale Pagan MD 12/09/2012 Office visit Mary Garza MOLDING LINE ASSISTANT 10/28/2012 Office visit Pasquale Pagan MD 10/07/2012 Office visit Pasquale Pagan MD 06/07/2012 Office visit WILBERT KOROMA MOLDING LINE ASSISTANT 03/18/2012 Office visit WILBERT KOROMA MOLDING LINE ASSISTANT 02/12/2012 Laboratory WILBERT KOROMA MOLDING LINE ASSISTANT 01/29/2012 Office visit WILBERT KOROMA MOLDING LINE ASSISTANT 12/23/2011 Laboratory WILBERT KOROMA MOLDING LINE ASSISTANT 11/05/2011 Laboratory WILBERT KOROMA MOLDING LINE ASSISTANT 11/04/2011 Office visit WILBERT KOROMA MOLDING LINE ASSISTANT 09/02/2011 Office visit WILBERT KOROMA MOLDING LINE ASSISTANT 07/26/2010 Office visit Wilbert Koroma MOLDING LINE ASSISTANT
--- OUTSIDE RECORDS SUMMARY | 2017-10-19 11:11 | XMS REPORT ---
Author Author WILBERT KOROMA [facility] Address [address] [place], [place] [id number] Care Team Providers Care Railway Traction Line Worker Name Role Phone WILBERT KOROMA PCP Unavailable [...] (150 mcg) by oral route once daily Maxalt-GRAIN MANAGER 10 mg oral tablet,disintegrating 01/07/2017 take [...] Alcohol Current some day social use [facility] [employer] History of Procedures Date Ordered Description Order [...] Vis Given Vis Pub CVX Td 07/26/2010 [facility]ary[facility]aleof[facility] DECAVAC [id number] Intramuscular Right Deltoid 07/26/2010 02/15/2008 999 History [...] Group Number Start Date [employer] [place] [id number] N/A [employer] [place] [place] [id number] Monday, 2010 [employer] [place] [place] [id number] N/A [facility] [id number] December [facility] Occupational Medicine [id number] N/A History of Encounters Visit Date Visit Type Provider 01/19/2017 Office visit WILBERT KOROMA CHAPLAIN RESIDENT 01/07/2017 Office visit WILBERT KOROMA CHAPLAIN RESIDENT 12/18/2016 Office visit Dougie Rahman CHAPLAIN RESIDENT 05/30/2016 Office visit Mary Garza CHAPLAIN RESIDENT 04/14/2016 Office visit Mary Garza CHAPLAIN RESIDENT 04/08/2016 Office visit Mary Garza CHAPLAIN RESIDENT 02/20/2016 Office visit Dougie Rahman CHAPLAIN RESIDENT 07/02/2015 Office visit WILBERT KOROMA CHAPLAIN RESIDENT 05/30/2015 Office visit WILBERT KOROMA CHAPLAIN RESIDENT 04/25/2015 Laboratory WILBERT KOROMA CHAPLAIN RESIDENT 04/18/2015 Office visit WILBERT KOROMA CHAPLAIN RESIDENT 04/17/2014 Office visit Mary Garza CHAPLAIN RESIDENT 04/10/2014 Office visit Mary Garza CHAPLAIN RESIDENT 01/13/2013 Office visit Pasquale Pagan MD 12/30/2012 Office visit Pasquale Pagan MD 12/09/2012 Office visit Mary Garza CHAPLAIN RESIDENT 10/28/2012 Office visit Pasquale Pagan MD 10/07/2012 Office visit Pasquale Pagan MD 06/07/2012 Office visit WILBERT KOROMA CHAPLAIN RESIDENT 03/18/2012 Office visit WILBERT KOROMA CHAPLAIN RESIDENT 02/12/2012 Laboratory WILBERT KOROMA CHAPLAIN RESIDENT 01/29/2012 Office visit WILBERT KOROMA CHAPLAIN RESIDENT 12/23/2011 Laboratory WILBERT KOROMA CHAPLAIN RESIDENT 11/05/2011 Laboratory WILBERT KOROMA CHAPLAIN RESIDENT 11/04/2011 Office visit WILBERT KOROMA CHAPLAIN RESIDENT 09/02/2011 Office visit WILBERT KOROMA CHAPLAIN RESIDENT 07/26/2010 Office visit Wilbert Koroma CHAPLAIN RESIDENT
--- OUTSIDE RECORDS SUMMARY | 2017-10-19 11:12 | XMS REPORT ---
Author Author WILBERT KOROMA [facility] Address [address] [place], [place] [id number] Care Team Providers Care Director Of Neurology Name Role Phone WILBERT KOROMA PCP Unavailable [...] TAKE ONE TABLET BY MOUTH EVERY DAY Maxalt-STRUCTURAL FITTER 10 mg oral tablet,disintegrating 05/30/2015 take 1 [...] TABLET BY MOUTH ONCE DAILY IN THE SOFT IRON INSPECTOR. Name Start Date Expiration Date SIG Comments [...] smoker Alcohol Current some day [facility] History of Procedures Date Ordered Description Order [...] Vis Pub CVX Td 07/26/2010 sanofi pasteur [facility] DECAVA [id number] Intramuscular Right Deltoid 07/26/2010 02/15/2008 999 History [...] Policy Number Policy Group Number Start Date [facility] [id number] December BCBS Bcbs [facility] [id number] Monday, 2010 [employer]BS [employer] [place] [id number] N/A History of Encounters Visit Date Visit Type Provider 07/02/2015 Office visit WILBERT KOROMA WEEDER 05/30/2015 Office visit WILBERT KOROMA WEEDER 04/25/2015 Laboratory WILBERT KOROMA WEEDER 04/18/2015 Office visit WILBERT KOROMA WEEDER 04/17/2014 Office visit Mary Garza WEEDER 04/10/2014 Office visit Mary Garza WEEDER 01/13/2013 Office visit Pasquale Pagan MD 12/30/2012 Office visit Pasquale Pagan MD 12/09/2012 Office visit Mary Garza WEEDER 10/28/2012 Office visit Pasquale Pagan MD 10/07/2012 Office visit Pasquale Pagan MD 06/07/2012 Office visit WILBERT KOROMA WEEDER 03/18/2012 Office visit WILBERT KOROMA WEEDER 02/12/2012 Laboratory WILBERT KOROMA WEEDER 01/29/2012 Office visit WILBERT KOROMA WEEDER 12/23/2011 Laboratory WILBERT KOROMA WEEDER 11/05/2011 Laboratory WILBERT KOROMA WEEDER 11/04/2011 Office visit WILBERT KOROMA WEEDER 09/02/2011 Office visit WILBERT KOROMA WEEDER 07/26/2010 Office visit Wilbert Koroma WEEDER
[2017-10-19] MEDS: LACTATED RINGERS 1,000 ML IV PRN ×2 (11:15→13:05)
--- OUTSIDE RECORDS SUMMARY | 2017-10-19 11:15 | XMS REPORT ---
Author Author WILBERT KOROMA [facility] Address [address] [facility] [address] [place], [place] [phone] Care Team Providers Care Cloth Doffer Name Role Phone WILBERT KOROMA PCP Unavailable [...] smoker Alcohol Current some day social use [place] [facility] [employer] History of Procedures Date Ordered Description Order Status 11/04/2011 12:00 AM COMPLETE CBC W/AUTO DIFF [...] CELLS 1+ SQUAMOUS TRICHOMONAS NEGATIVE YEAST NEGATIVE History Of Immunizations Name Date Admin Mfg Name Mfg Code Trade Name Lot# Route Inj Vis Given Vis Pub CVX Td 07/26/2010 sanofi pasteur [facility] DECAVAC [id number] Intramuscular Right Deltoid 07/26/2010 02/15/2008 999 History [...] 2015 8:28AM Headache Apr 25 2015 8:28AM Payers Insurance Name Company Name Plan Name Plan Number Policy Number Policy Group Number Start Date [facility] [id number] December BCBS Bcbs [facility] [id number] Monday, 2010 [employer] [place] [place] [id number] N/A History of Encounters Visit Date Visit Type Provider 04/25/2015 Laboratory WILBERT KOROMA STEEL DETAILER 04/18/2015 Office visit WILBERT KOROMA STEEL DETAILER 04/17/2014 Office visit Mary Garza STEEL DETAILER 04/10/2014 Office visit Mary Garza STEEL DETAILER 01/13/2013 Office visit Pasquale Pagan MD 12/30/2012 Office visit Pasquale Pagan MD 12/09/2012 Office visit Mary Garza STEEL DETAILER 10/28/2012 Office visit Pasquale Pagan MD 10/07/2012 Office visit Pasquale Pagan MD 06/07/2012 Office visit WILBERT KOROMA STEEL DETAILER 03/18/2012 Office visit WILBERT KOROMA STEEL DETAILER 02/12/2012 Laboratory WILBERT KOROMA STEEL DETAILER 01/29/2012 Office visit WILBERT KOROMA STEEL DETAILER 12/23/2011 Laboratory WILBERT KOROMA STEEL DETAILER 11/05/2011 Laboratory WILBERT KOROMA STEEL DETAILER 11/04/2011 Office visit WILBERT KOROMA STEEL DETAILER 09/02/2011 Office visit WILBERT KOROMA STEEL DETAILER 07/26/2010 Office visit Wilbert Koroma STEEL DETAILER
--- OUTSIDE RECORDS SUMMARY | 2017-10-19 11:15 | XMS REPORT ---
Author Author WILBERT MELÉNDEZ [facility] Address [address] [place], [place] [phone] Care Team Providers Care Foundry Process Engineer Name Role Phone WILBERT MELÉNDEZ PCP Unavailable [...] TAKE ONE TABLET BY MOUTH EVERY DAY Maxalt-HAND NAILER 10 mg oral tablet,disintegrating 05/30/2015 take 1 [...] smoker Alcohol Current some day social use [place] [facility] eMarketer History of Procedures Date Ordered Description Order [...] Vis Pub CVX Td 07/26/2010 sanofi pasteur [facility] [id number] Intramuscular Right Deltoid 07/26/2010 02/15/2008 999 History [...] Number Policy Group Number Start Date [facility] [id number] December [employer] [place] [id number] Monday, 2010 [employer] [place] [id number] N/A History of Encounters Visit Date Visit Type Provider 07/02/2015 Office visit WILBERT MELÉNDEZ OUTSIDE SALES REPRESENTATIVE INSURANCE 05/30/2015 Office visit WILBERT MELÉNDEZ OUTSIDE SALES REPRESENTATIVE INSURANCE 04/25/2015 Laboratory WILBERT MELÉNDEZ OUTSIDE SALES REPRESENTATIVE INSURANCE 04/18/2015 Office visit WILBERT MELÉNDEZ OUTSIDE SALES REPRESENTATIVE INSURANCE 04/17/2014 Office visit Mary Garza OUTSIDE SALES REPRESENTATIVE INSURANCE 04/10/2014 Office visit Mary Garza OUTSIDE SALES REPRESENTATIVE INSURANCE 01/13/2013 Office visit Pasquale Pagan MD 12/30/2012 Office visit Pasquale Pagan MD 12/09/2012 Office visit Mary Garza OUTSIDE SALES REPRESENTATIVE INSURANCE 10/28/2012 Office visit Pasquale Pagan MD 10/07/2012 Office visit Pasquale Pagan MD 06/07/2012 Office visit WILBERT MELÉNDEZ OUTSIDE SALES REPRESENTATIVE INSURANCE 03/18/2012 Office visit WILBERT MELÉNDEZ OUTSIDE SALES REPRESENTATIVE INSURANCE 02/12/2012 Laboratory WILBERT MELÉNDEZ OUTSIDE SALES REPRESENTATIVE INSURANCE 01/29/2012 Office visit WILBERT MELÉNDEZ OUTSIDE SALES REPRESENTATIVE INSURANCE 12/23/2011 Laboratory WIBLERT MELÉNDEZ OUTSIDE SALES REPRESENTATIVE INSURANCE 11/05/2011 Laboratory WILBERT MELÉNDEZ OUTSIDE SALES REPRESENTATIVE INSURANCE 11/04/2011 Office visit WILBERT MELÉNDEZ OUTSIDE SALES REPRESENTATIVE INSURANCE 09/02/2011 Office visit WILBERT MELÉNDEZ OUTSIDE SALES REPRESENTATIVE INSURANCE 07/26/2010 Office visit Wilbert Meléndez OUTSIDE SALES REPRESENTATIVE INSURANCE
--- OUTSIDE RECORDS SUMMARY | 2017-10-19 11:18 | XMS REPORT ---
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[employer] History of Procedures Date Ordered Description Order [...] Vis Pub CVX Td 07/26/2010 sanofi pasteur [facility] DECAVAC [id number] Intramuscular Right Deltoid 07/26/2010 02/15/2008 999 History [...] 2015 3:49PM Hypothyroidism May 30 2015 3:49PM Payers Insurance Name Company Name Plan Name Plan Number Policy Number Policy Group Number Start Date [facility] [id number] December [employer] [place] [id number] Monday, 2010 [employer] [place] [id number] N/A History of Encounters Visit Date Visit Type Provider 05/30/2015 Office visit WILBERT KOROMA BASE DRAW OPERATOR 04/25/2015 Laboratory WILBERT KOROMA BASE DRAW OPERATOR 04/18/2015 Office visit WILBERT KOROMA BASE DRAW OPERATOR 04/17/2014 Office visit Mary Garza BASE DRAW OPERATOR 04/10/2014 Office visit Mary Garza BASE DRAW OPERATOR 01/13/2013 Office visit Pasquale Pagan MD 12/30/2012 Office visit Pasquale Pagan MD 12/09/2012 Office visit Mary Garza BASE DRAW OPERATOR 10/28/2012 Office visit Pasquale Pagan MD 10/07/2012 Office visit Pasquale Pagan MD 06/07/2012 Office visit WILBERT KOROMA BASE DRAW OPERATOR 03/18/2012 Office visit WILBERT KOROMA BASE DRAW OPERATOR 02/12/2012 Laboratory WILBERT KOROMA BASE DRAW OPERATOR 01/29/2012 Office visit WILBERT KOROMA BASE DRAW OPERATOR 12/23/2011 Laboratory WILBERT KOROMA BASE DRAW OPERATOR 11/05/2011 Laboratory WILBERT KOROMA BASE DRAW OPERATOR 11/04/2011 Office visit WILBERT KOROMA BASE DRAW OPERATOR 09/02/2011 Office visit WILBERT KOROMA BASE DRAW OPERATOR 07/26/2010 Office visit Wilbert Koroma BASE DRAW OPERATOR
--- OUTSIDE RECORDS SUMMARY | 2017-10-19 11:20 | XMS REPORT ---
Author Author Lilian Kay [facility] Address [address] [place], [place] [address] Care Team Providers Care School Examiner Name Role Phone Lilian Kay PCP Unavailable WILBERT KOROMA PreferredProvider Unavailable Allergies [...] (150 mcg) by oral route once daily Maxalt-TELEPHONE OPERATOR RECEPTIONIST 10 mg oral tablet,disintegrating 01/07/2017 take 1 [...] meals and at bedtime for 14 days Name Start Date Expiration Date SIG [...] smoker Alcohol Current some day social use [facility] [employer] History of Procedures Date Ordered Description Order [...] Reviewed 02/16/2017 3:31 PM URINE TEST Reviewed 10/07/2012 12:00 AM ASSAY [...] Td 07/26/2010 sanofi pasteur [facility] DECAVA [id number] Intramuscular Right Deltoid 07/26/2010 02/15/2008 999 History [...] disease without esophagitis Feb 16 2017 2:25PM Payers Insurance Name Company Name Plan Name Plan Number Policy Number Policy Group Number Start Date [employer] [place] [id number] N/A [employer] [place] [id number] Monday, 2010 [employer] [place] [id number] N/A [facility] [id number] December [facility] Occupational Medicine [id number] N/A History of Encounters Visit Date Visit Type Provider 02/16/2017 Office visit Lilian Kay PAINTER TUMBLING BARREL 01/19/2017 Office visit WILBERT KOROMA PAINTER TUMBLING BARREL 01/07/2017 Office visit WILBERT KOROMA PAINTER TUMBLING BARREL 12/18/2016 Office visit Dougie Rahman PAINTER TUMBLING BARREL 05/30/2016 Office visit Mary Garza PAINTER TUMBLING BARREL 04/14/2016 Office visit Mary Garza PAINTER TUMBLING BARREL 04/08/2016 Office visit Mary Garza PAINTER TUMBLING BARREL 02/20/2016 Office visit Dougie Rahman PAINTER TUMBLING BARREL 07/02/2015 Office visit WILBERT KOROMA PAINTER TUMBLING BARREL 05/30/2015 Office visit WILBERT KOROMA PAINTER TUMBLING BARREL 04/25/2015 Laboratory WILBERT KOROMA PAINTER TUMBLING BARREL 04/18/2015 Office visit WILBERT KOROMA PAINTER TUMBLING BARREL 04/17/2014 Office visit Mary Garza PAINTER TUMBLING BARREL 04/10/2014 Office visit Mary Garza PAINTER TUMBLING BARREL 01/13/2013 Office visit Pasquale Pagan MD 12/30/2012 Office visit Pasquale Pagan MD 12/09/2012 Office visit Mary Garza PAINTER TUMBLING BARREL 10/28/2012 Office visit Pasquale Pagan MD 10/07/2012 Office visit Pasquale Pagan MD 06/07/2012 Office visit WILBERT KOROMA PAINTER TUMBLING BARREL 03/18/2012 Office visit WILBERT KOROMA PAINTER TUMBLING BARREL 02/12/2012 Laboratory WILBERT KOROMA PAINTER TUMBLING BARREL 01/29/2012 Office visit WILBERT KOROMA PAINTER TUMBLING BARREL 12/23/2011 Laboratory WILBERT KOROMA PAINTER TUMBLING BARREL 11/05/2011 Laboratory WILBERT KOROMA PAINTER TUMBLING BARREL 11/04/2011 Office visit WILBERT KOROMA PAINTER TUMBLING BARREL 09/02/2011 Office visit WILBERT KOROMA PAINTER TUMBLING BARREL 07/26/2010 Office visit Wilbert Koroma PAINTER TUMBLING BARREL
--- OUTSIDE RECORDS SUMMARY | 2017-10-19 11:24 | XMS REPORT ---
Author Author Dougie Rahman [facility] Address [address] [place], [place] [id number] Care Team Providers Care Breaker Table Worker Name Role Phone Dougie Rahman PCP WILBERT KOROMA PreferredProvider Unavailable Allergies and Adverse Reactions Name Reaction Notes NO KNOWN DRUG ALLERGIES Plan of Treatment Not available. Medications Active Name Start Date Estimated Completion Date SIG Comments levothyroxine 112 mcg oral tablet 03/24/2013 TAKE ONE TABLET BY MOUTH EVERY DAY levothyroxine 112 mcg oral tablet 04/25/2013 TAKE ONE TABLET BY MOUTH EVERY DAY Maxalt-AFTERNOON BABYSITTER 10 mg oral tablet,disintegrating 05/30/2015 take 1 [...] TABLET BY MOUTH ONCE DAILY IN THE LOW HEEL BUILDER. topiramate 50 mg oral tablet 03/29/2016 TAKE [...] BEDTIME . DOSAGE CAN BE ADJUSTED DISCUSSED Augmentin 875-125 mg oral tablet 12/18/2016 take [...] HC BMI BSA BMI Percentile O2 Sat(%) 12/18/2016 2:23:00 PM 120 mmHg 70 mmHg [...] smoker Alcohol Current some day social use [employer] History of Procedures Date Ordered Description Order [...] pasteur [facility] DECAVA [id number] Intramuscular Right Deltoid 07/26/2010 02/15/2008 999 History [...] non-recurrent maxillary sinusitis Dec 18 2016 2:25PM Payers Insurance Name Company Name Plan Name Plan Number Policy Number Policy Group Number Start Date BCBS [facility] [id number] N/A BCBS [employer] [facility] [id number] Monday, 2010 BCBS [facility] [id number] N/A [facility] [id number] December [facility] Occupational Medicine [id number] N/A History of Encounters Visit Date Visit Type Provider 12/18/2016 Office visit Dougie Rahman MANAGING MANAGER 05/30/2016 Office visit Mary MFinn Garza MANAGING MANAGER 04/14/2016 Office visit Mary Garza MANAGING MANAGER 04/08/2016 Office visit Mary Garza MANAGING MANAGER 02/20/2016 Office visit Dougie Rahman MANAGING MANAGER 07/02/2015 Office visit WILBERT KOROMA MANAGING MANAGER 05/30/2015 Office visit WILBERT KOROMA MANAGING MANAGER 04/25/2015 Laboratory WILBERT KOROMA MANAGING MANAGER 04/18/2015 Office visit WILBERT KOROMA MANAGING MANAGER 04/17/2014 Office visit Mary Garza MANAGING MANAGER 04/10/2014 Office visit Mary Garza MANAGING MANAGER 01/13/2013 Office visit Pasquale Pagan MD 12/30/2012 Office visit Pasquale Pagan MD 12/09/2012 Office visit Mary Garza MANAGING MANAGER 10/28/2012 Office visit Pasquale Pagan MD 10/07/2012 Office visit Pasquale Pagan MD 06/07/2012 Office visit WILBERT KOROMA MANAGING MANAGER 03/18/2012 Office visit WILBERT KOROMA MANAGING MANAGER 02/12/2012 Laboratory WILBERT KOROMA MANAGING MANAGER 01/29/2012 Office visit WILBERT KOROMA MANAGING MANAGER 12/23/2011 Laboratory WILBERT KOROMA MANAGING MANAGER 11/05/2011 Laboratory WILBERT KOROMA MANAGING MANAGER 11/04/2011 Office visit WILBERT KOROMA MANAGING MANAGER 09/02/2011 Office visit WILBERT KOROMA MANAGING MANAGER 07/26/2010 Office visit Wilbert Koroma MANAGING MANAGER
--- OUTSIDE RECORDS SUMMARY | 2017-10-19 11:26 | XMS REPORT ---
Author Author Lilian Kay [facility] Address [address] [place], [place] [id number] Care Team Providers Care Equal Employment Opportunity Officer Name Role Phone Lilian Kay PCP WILBERT KOROMA PreferredProvider Allergies and Adverse Reactions Name Reaction Notes NO KNOWN DRUG ALLERGIES Plan of Treatment Planned Activity Comments Planned Date Planned Time Plan/Goal TSH 04/13/2017 12:00 AM Medications Active Name Start Date [...] (150 mcg) by oral route once daily Maxalt-SUPERVISOR SANDING 10 mg oral tablet,disintegrating 01/07/2017 take 1 [...] smoker Alcohol Current some day social use [facility] [facility] History of Procedures Date Ordered [...] sanofi pasteur [facility] DECAVA [id number] Intramuscular Right Deltoid 07/26/2010 02/15/2008 999 History [...] Number Start Date BCBS [employer] [place] [id number] N/A [employer] [place] [id number] Monday, 2010 [employer] [place] [id number] N/A [facility] [id number] December [facility] Occupational Medicine [id number] N/A History of Encounters Visit Date Visit Type Provider 02/16/2017 Office visit Lilian Kay GUN NUMBER 01/19/2017 Office visit WILBERT KOROMA GUN NUMBER 01/07/2017 Office visit WILBERT KOROMA GUN NUMBER 12/18/2016 Office visit Dougie Rahman GUN NUMBER 05/30/2016 Office visit Mary Garza GUN NUMBER 04/14/2016 Office visit Mary Garza GUN NUMBER 04/08/2016 Office visit Mary Garza GUN NUMBER 02/20/2016 Office visit Dougie Rahman GUN NUMBER 07/02/2015 Office visit WILBERT KOROMA GUN NUMBER 05/30/2015 Office visit WILBERT KOROMA GUN NUMBER 04/25/2015 Laboratory WILBERT KOROMA GUN NUMBER 04/18/2015 Office visit WILBERT KOROMA GUN NUMBER 04/17/2014 Office visit Mary Garza GUN NUMBER 04/10/2014 Office visit Mary Garza GUN NUMBER 01/13/2013 Office visit Pasquale Pagan MD 12/30/2012 Office visit Pasquale Pagan MD 12/09/2012 Office visit Mary Garza GUN NUMBER 10/28/2012 Office visit Pasquale Pagan MD 10/07/2012 Office visit Pasquale Pagan MD 06/07/2012 Office visit WILBERT KOROMA GUN NUMBER 03/18/2012 Office visit WILBERT KOROMA GUN NUMBER 02/12/2012 Laboratory WILBERT KOROMA GUN NUMBER 01/29/2012 Office visit WILBERT KOROMA GUN NUMBER 12/23/2011 Laboratory WILBERT KOROMA GUN NUMBER 11/05/2011 Laboratory WILBERT KOROMA GUN NUMBER 11/04/2011 Office visit WILBERT KOROMA GUN NUMBER 09/02/2011 Office visit WILBERT KOROMA GUN NUMBER 07/26/2010 Office visit Wilbert Koroma APRN
--- OUTSIDE RECORDS SUMMARY | 2017-10-19 11:27 | XMS REPORT ---
Author Author Dougie Rahman [facility] Address [address] [place], [place] [address] Care Team Providers Care Body Worker Name Role Phone Dougie Rahman PCP WILBERT KOROMA PreferredProvider Unavailable Allergies and Adverse Reactions Name Reaction Notes NO KNOWN DRUG ALLERGIES Plan of Treatment Not available. Medications Active Name Start Date Estimated Completion Date SIG Comments levothyroxine 112 mcg oral tablet 03/24/2013 TAKE ONE TABLET BY MOUTH EVERY DAY levothyroxine 112 mcg oral tablet 04/25/2013 TAKE ONE TABLET BY MOUTH EVERY DAY Maxalt-LEADITE HEATER 10 mg oral tablet,disintegrating 05/30/2015 take 1 [...] TABLET BY MOUTH ONCE DAILY IN THE LACE STRIPPER. Name Start Date Expiration Date SIG Comments [...] HC BMI BSA BMI Percentile O2 Sat(%) 02/20/2016 10:33:00 AM 120 mmHg 72 mmHg [...] smoker Alcohol Current some day social use [employer] [facility] [employer] [facility] History of Procedures Date Ordered Description Order Status 04/25/2015 12:00 AM LIPID PANEL Reviewed 04/25/2015 12:00 AM URINALYSIS AUTO W/O SCOPE Reviewed 04/25/2015 12:00 AM GENERAL HEALTH PANEL Reviewed 04/25/2015 8:39 AM URINALYSIS AUTO W/O SCOPE Reviewed 03/03/2016 12:00 AM Employment Physical Reviewed 11/04/2011 12:00 AM COMPLETE CBC W/AUTO [...] CELLS 2++ SQUAMOUS /HPFTRICHOMONAS NEGATIVE YEAST NEGATIVE History Of Immunizations Name Date Admin Mf Name Mf Code Trade Name Lot# Route Inj Vis Given Vis Pub CVX Td 07/26/2010 sanofi pasteur [facility] DECAVAC [id number] Intramuscular Right Deltoid 07/26/2010 02/15/2008 999 History [...] exam, encounter for Feb 20 2016 10:34AM Payers Insurance Name Company Name Plan Name Plan Number Policy Number Policy Group Number Start Date [facility] Occupational Medicine [id number] N/A [employer] [place] [id number] Monday, June 28, 2010 [employer] [place] [id number] N/A [facility] [id number] December History of Encounters Visit Date Visit Type Provider 02/20/2016 Office visit Dougie Rahman AUTOMOTIVE POWER ELECTRONICS ENGINEER 07/02/2015 Office visit WILBERT KOROMA AUTOMOTIVE POWER ELECTRONICS ENGINEER 05/30/2015 Office visit WILBERT KOROMA AUTOMOTIVE POWER ELECTRONICS ENGINEER 04/25/2015 Laboratory WILBERT KOROMA AUTOMOTIVE POWER ELECTRONICS ENGINEER 04/18/2015 Office visit WILBERT KOROMA AUTOMOTIVE POWER ELECTRONICS ENGINEER 04/17/2014 Office visit Mary Garza AUTOMOTIVE POWER ELECTRONICS ENGINEER 04/10/2014 Office visit Mary Garza AUTOMOTIVE POWER ELECTRONICS ENGINEER 01/13/2013 Office visit Pasquale Pagan MD 12/30/2012 Office visit Pasquale Pagan MD 12/09/2012 Office visit Mary Garza AUTOMOTIVE POWER ELECTRONICS ENGINEER 10/28/2012 Office visit Pasquale Pagan MD 10/07/2012 Office visit Pasquale Pagan MD 06/07/2012 Office visit WILBERT KOROMA AUTOMOTIVE POWER ELECTRONICS ENGINEER 03/18/2012 Office visit WILBERT KOROMA AUTOMOTIVE POWER ELECTRONICS ENGINEER 02/12/2012 Laboratory WILBERT KOROMA AUTOMOTIVE POWER ELECTRONICS ENGINEER 01/29/2012 Office visit WILBERT KOROMA AUTOMOTIVE POWER ELECTRONICS ENGINEER 12/23/2011 Laboratory WILBERT KOROMA AUTOMOTIVE POWER ELECTRONICS ENGINEER 11/05/2011 Laboratory WILBERT KOROMA AUTOMOTIVE POWER ELECTRONICS ENGINEER 11/04/2011 Office visit WILBERT KOROMA AUTOMOTIVE POWER ELECTRONICS ENGINEER 09/02/2011 Office visit WILBERT KOROMA AUTOMOTIVE POWER ELECTRONICS ENGINEER 07/26/2010 Office visit Wilbert Koroma AUTOMOTIVE POWER ELECTRONICS ENGINEER
[2017-10-19 11:28] LABS: BASOPHILS % (AUTO) 0 % (0-10); EOSINOPHILS # (AUTO) 0.4 10^3/uL (0.0-0.3); EOSINOPHILS % (AUTO) 4 % (0-10); HEMATOCRIT 38 % (35-52); LYMPHOCYTES # (AUTO) 2.1 X 10^3 (1.0-4.0); LYMPHOCYTES % (AUTO) 23 % (12-44); MEAN CORPUSCULAR HEMOGLOBIN 30 PG (25-34); MEAN CORPUSCULAR HGB CONC 35 G/DL (32-36); MEAN CORPUSCULAR VOLUME 86 FL (80-99); MEAN PLATELET VOLUME 10.1 FL (7.4-10.4); MONOCYTES # (AUTO) 0.4 X 10^3 (0.0-1.0); MONOCYTES % (AUTO) 5 % (0-12); NEUTROPHILS # (AUTO) 6.1 X 10^3 (1.8-7.8); NEUTROPHILS % (AUTO) 68 % (42-75); PLATELET COUNT 290 10^3/uL (130-400); RED BLOOD COUNT 4.34 10^6/uL (4.35-5.85); RED CELL DISTRIBUTION WIDTH 13.5 % (10.0-14.5)
--- OUTSIDE RECORDS SUMMARY | 2017-10-19 11:28 | XMS REPORT ---
Author Author WILBERT KOROMA [facility] Address [address] [place], [place] [address] Care Team Providers Care Heavy Truck Mechanic Name Role Phone WILBERT KOROMA PCP Unavailable [...] smoker Alcohol Current some day social use [facility] History of Procedures Date Ordered Description [...] Vis Given Vis Pub CVX Td 07/26/2010 [facility] DECAVA [id number] Intramuscular Right Deltoid 07/26/2010 02/15/2008 999 History [...] 2015 1:22PM Migraine Apr 18 2015 1:22PM Payers Insurance Name Company Name Plan Name Plan Number Policy Number Policy Group Number Start Date BCBS [employer] [place] [id number] N/A [employer] [place] [id number] Monday, 2010 History of Encounters Visit Date Visit Type Provider 04/18/2015 Office visit WILBERT KOROMA PLATE MAKER ZINC 04/17/2014 Office visit Mary Garza PLATE MAKER ZINC 04/10/2014 Office visit Mary Garza PLATE MAKER ZINC 01/13/2013 Office visit Pasquale Pagan MD 12/30/2012 Office visit Pasquale Pagan MD 12/09/2012 Office visit Mary Garza PLATE MAKER ZINC 10/28/2012 Office visit Pasquale Pagan MD 10/07/2012 Office visit Pasquale Pagan MD 06/07/2012 Office visit WILBERT KOROMA PLATE MAKER ZINC 03/18/2012 Office visit WILBERT KOROMA PLATE MAKER ZINC 02/12/2012 Laboratory WILBERT KOROMA PLATE MAKER ZINC 01/29/2012 Office visit WILBERT KOROMA PLATE MAKER ZINC 12/23/2011 Laboratory WILBERT KOROMA PLATE MAKER ZINC 11/05/2011 Laboratory WILBERT KOROMA PLATE MAKER ZINC 11/04/2011 Office visit WILBERT KOROMA PLATE MAKER ZINC 09/02/2011 Office visit WILBERT KOROMA PLATE MAKER ZINC 07/26/2010 Office visit Wilbert Koroma PLATE MAKER ZINC
--- OUTSIDE RECORDS SUMMARY | 2017-10-19 11:29 | XMS REPORT | Continuity of Care Document ---
Author Author [facility] Address Unknown Phone Unavailable Allergies Active Description Code Type Severity Reaction Onset Reported/Identified Relationship to Patient Clinical Status Yes NKDA N/A N/A Yes No Known Drug Allergies [id number] Drug Allergy Unknown N/A 10/14/2017 Medications Medication Packaging Start Date Stop Date Route Dosage Sig TRI-PREVIFEM ORAL 06/29/2017 ORAL TOPIRAMATE ORAL 06/29/2017 ORAL BACTRIM DS ORAL 08/27/2017 09/06/2017 ORAL 2020 twice daily Problems Date Dx Coded Attending Type Code Diagnosis Diagnosed By 11/07/2016 P R300 Dysuria 01/07/2017 P E079 Disorder of thyroid, unspecified 04/14/2017 P E039 Hypothyroidism , unspecified 05/12/2017 P N912 Amenorrhea, unspecified Procedures There is no data. Results Test Result Range Varicella-Zoster V Ab, IgG - 02/20/16 09:45 Varicella Zoster IgG 1456 index Immune >165 Measles/Mumps/Rubella Immunity - 02/20/16 09:45 Rubella Antibodies, IgG 15.50 index Immune >0.99 Rubeola Ab, IgG >300.0 AU/mL Immune >29.9 Mumps Abs, IgG 91.5 AU/mL Immune >10.9 Encounters ACCT No. Visit Date/Time Discharge Status Pt. Type Provider Facility Loc./Unit Complaint [id number] 09/22/2017 10:06:04 09/22/2017 23:59:59 CLS Outpatient Lilian Kay [id number] 07/15/2017 08:59:45 07/15/2017 23:59:59 CLS Outpatient Lilian Kay [id number] 05/13/2017 15:15:02 05/13/2017 23:59:59 CLS Outpatient Mary Garza [id number] 02/16/2017 15:13:32 02/16/2017 23:59:59 CLS Outpatient Lilian Kay [id number] 01/19/2017 16:51:39 01/19/2017 23:59:59 CLS Outpatient KULDIP KOROMA [id number] 01/07/2017 17:36:49 01/07/2017 23:59:59 CLS Outpatient KULDIP KOROMA [id number] 12/23/2016 14:38:34 12/23/2016 23:59:59 CLS Outpatient Josiah Dougie [id number] 05/30/2016 12:26:47 05/30/2016 23:59:59 CLS Outpatient Mary Garza [id number] 04/14/2016 17:35:51 04/14/2016 23:59:59 CLS Outpatient Mary Garza [id number] 04/08/2016 10:28:18 04/08/2016 23:59:59 CLS Outpatient Mary Garza [id number] 02/20/2016 11:25:04 02/20/2016 23:59:59 CLS Outpatient Josiah Dougie [id number] 05/30/2015 16:38:20 05/30/2015 23:59:59 CLS Outpatient KULDIP KOROMA [id number] 04/25/2015 09:04:48 04/25/2015 23:59:59 CLS Outpatient KULDIP KOROMA [id number] 04/18/2015 14:14:35 04/18/2015 23:59:59 CLS Outpatient KULDIP KOROMA [id number] 04/17/2014 16:13:26 04/17/2014 23:59:59 CLS Outpatient Mary Garza [id number] 04/10/2014 12:30:57 04/10/2014 23:59:59 CLS Outpatient Mary Garza [id number] 02/22/2016 13:05:00 Document Registration [id number] 05/12/2017 10:03:00 Document Registration [id number] 04/14/2017 15:28:00 Document Registration [id number] 01/07/2017 07:11:00 Document Registration [id number] 11/07/2016 09:27:00 Document Registration [id number] 02/22/2016 15:05:00 Document Registration [id number] 10/14/2017 05:34:00 10/14/2017 12:35:00 DIS Outpatient FAMILIA BENNETT, CARLI Ol[facility]a [facility] PREOP EXP. LAP W/ABD. SCAR REVISION [id number] 09/09/2017 15:07:07 09/09/2017 15:07:07 DIS Outpatient [facility]
--- OUTSIDE RECORDS SUMMARY | 2017-10-19 11:29 | XMS REPORT ---
Author Author WILBERT KOROMA [facility] Address [address] [place], [place] [id number] Care Team Providers Care Field Administrative Assistant Name Role Phone WILBERT KOROMA PCP Unavailable [...] TAKE ONE TABLET BY MOUTH EVERY DAY Maxalt-FRUIT PICKER 10 mg oral tablet,disintegrating 05/30/2015 take 1 [...] smoker Alcohol Current some day social use [facility] [employer] History of Procedures Date Ordered Description Order [...] Vis Pub CVX Td 07/26/2010 sanofi pasteur [facility] [id number] Intramuscular Right Deltoid 07/26/2010 02/15/2008 999 History [...] Policy Group Number Start Date [facility] [id number] December [employer] [place] [id number] Monday, 2010 [employer] [place] [id number] N/A History of Encounters Visit Date Visit Type Provider 07/02/2015 Office visit WILBERT KOROMA FRIT MIXER AND BURNER 05/30/2015 Office visit WILBERT KOROMA FRIT MIXER AND BURNER 04/25/2015 Laboratory WILBERT KOROMA FRIT MIXER AND BURNER 04/18/2015 Office visit WILBERT KOROMA FRIT MIXER AND BURNER 04/17/2014 Office visit Mary Garza FRIT MIXER AND BURNER 04/10/2014 Office visit Mary Garza FRIT MIXER AND BURNER 01/13/2013 Office visit Pasquale Pagan MD 12/30/2012 Office visit Pasquale Pagan MD 12/09/2012 Office visit Mary Garza FRIT MIXER AND BURNER 10/28/2012 Office visit Pasquale Pagan MD 10/07/2012 Office visit Pasquale Pagan MD 06/07/2012 Office visit WILBERT KOROMA FRIT MIXER AND BURNER 03/18/2012 Office visit WILBERT KOROMA FRIT MIXER AND BURNER 02/12/2012 Laboratory WILBERT KOROMA FRIT MIXER AND BURNER 01/29/2012 Office visit WILBERT KOROMA FRIT MIXER AND BURNER 12/23/2011 Laboratory WILBERT KOROMA FRIT MIXER AND BURNER 11/05/2011 Laboratory WILBERT KOROMA FRIT MIXER AND BURNER 11/04/2011 Office visit WILBERT KOROMA FRIT MIXER AND BURNER 09/02/2011 Office visit WILBERT KOROMA FRIT MIXER AND BURNER 07/26/2010 Office visit Wilbert Koroma FRIT MIXER AND BURNER
[2017-10-19] MEDS ORDERED: ONDANSETRON 4 MG/2 ML (SDV) Z0FRAN ONE (12:02)
[2017-10-19] MEDS ORDERED: SEVOFLURANE (ULTANE) 15 ML INHAL SOLN ONE ×2 (12:02→13:48)
[2017-10-19] MEDS ORDERED: LIDOCAINE PF 2% 5 ML (XYLOCAINE) VIAL ONE (12:02)
[2017-10-19] MEDS ORDERED: ROCURONIUM 10 MG/ML 5 ML SYRINGE IV ONE (12:02)
[2017-10-19] MEDS ORDERED: proPOfol 200 MG/20 ML (DIPRIVAN) VIAL IV ONE (12:02)
[2017-10-19] MEDS ORDERED: DEXAMETHASONE 10 MG/ML (DECADRON) 1 ML VIAL ONE (12:02)
[2017-10-19] MEDS ORDERED: fentaNYL INJECTION 100 MCG/2 ML AMP ONE ×2 (12:03→12:40)
[2017-10-19] MEDS ORDERED: MIDAZOLAM 2 MG/2 ML (VERSED) VIAL ONE (12:03)
[2017-10-19] MEDS ORDERED: TOPI50TA37 PO ×2 (12:18→12:21)
--- NOTE | 2017-10-19 12:24 | Progress Note-Pre Operative ---
Pre-Operative Progress Note H&P Reviewed The H&P was reviewed, patient examined and no changes noted. Date Seen by Provider: Oct 19, 2017 Time Seen by Provider: 12:23 Date H&P Reviewed: Oct 19, 2017 Time H&P Reviewed: :23 Pre-Operative Diagnosis: Abdominal wall pain/abdominal wall mass CARLI BARBOSA MD Oct 19, 2017 12:24 pm
--- NOTE | 2017-10-19 12:24 | Progress Note-Post Operative ---
Post-Operative Progess Note Surgeon (s)/Business Analytics Intern (s) Surgeon CARLI BARBOSA MD Business Analytics Intern: None Pre-Operative Diagnosis Abdominal wall pain/abdominal wall mass Post-Operative Diagnosis Same with pathology pending Procedure & Operative Findings Date of Procedure 10/19/17 Procedure Performed/Findings Exploratory laparotomy with soft tissue mass excision Anesthesia Type GETA Estimated Blood Loss Estimated blood loss (mL): 50cc Specimens/Packing Specimens Removed Abdominal wall soft tissue nodular mass with pathology pending Packing: None CARLI BARBOSA MD Oct 19, 2017 12:24
[2017-10-19] MEDS ORDERED: D5 LR IV SOLUTION 1,000 ML IV SCH (12:25)
[2017-10-19] MEDS ORDERED: OXYC-471 PO (12:27)
[2017-10-19] MEDS ORDERED: IBUP-1780 PO (12:29)
--- NOTE | 2017-10-19 12:29 | Discharge Instructions ---
Discharge Instructions Discharge Medications New, Converted or Re-Newed RX: RX on Chart Patient Instructions Patient Instructions: As directed Return to The Hospital For: As directed Activity & Diet Discharge Diet: No Restrictions Activity as Tolerated: Yes Orders-Post D/C & Referrals Follow Up Appt: Return to clinic on Thursday, October 21, 2017 at 930 a.m. for staple removal Call to make follow up appt. for patient in 2 weeks. Activity: Rest for 24 hours, than as tolerated. Wound Care: Keep incisions clean and dry. Wash daily with soap and water. Diet: As tolerated-Clear Liquids only if nauseated. Day shower or tub bathe as desired. No driving for 24 hours, no alcoholic beverages for 24 hours. Patient to return to the clinic as soon as possible for: Temperature greater than 101F, Severe Pain, Foul discharge from incision or vagina, Excessive Bleeding (more than a period). CARLI BARBOSA MD Oct 19, 2017 12:29 pm
[2017-10-19] MEDS ORDERED: MEPERIDINE (DEMEROL) INJ 100 MG/ML IM ONE (12:30)
[2017-10-19] MEDS ORDERED: ONDANSETRON 4 MG/2 ML (SDV) Z0FRAN IVP PRN ×2 (12:30→13:45)
[2017-10-19] MEDS ORDERED: KETOROLAC 30 MG/ML VIAL IVP ONE (12:30)
[2017-10-19] MEDS ORDERED: oxyCODONE/APAP 5/325MG (PERCOCET 5) TABLET PO PRN ×2 (12:30→16:15)
[2017-10-19] MEDS ORDERED: PROMETHAZINE INJ 25 MG/ML (PHENERGAN) AMP IM ONE (12:30)
[2017-10-19] MEDS ORDERED: NEOSTIGMINE 1 MG/ML 5 ML SYRINGE ONE ×2 (12:43→13:08)
[2017-10-19] MEDS ORDERED: GLYCOPYRROLATE 0.2 MG/ML (ROBINUL) 2 ML VIAL ONE (13:08)
[2017-10-19] MEDS ORDERED: HYDROmorphone 1 MG/ML (DILAUDID) 1 ML SYRINGE ONE (13:38)
[2017-10-19] MEDS ORDERED: MEPERIDINE (DEMEROL) INJ 50 MG/ML IVP PRN (13:45)
[2017-10-19] MEDS ORDERED: ROPIVACAINE 5MG/ML 30ML VIAL ONE (13:47)
[2017-10-19] MEDS: HYDROmorphone 1 MG/ML (DILAUDID) 1 ML SYRINGE IV PRN ×2 (13:47→13:57)
[2017-10-19 14:25] VITALS: BP 119/76
--- NOTE | 2017-10-19 14:34 | Anesthesia-General Post-Op ---
General Patient Condition Mental Status/LOC: Same as Preop Cardiovascular: Satisfactory Nausea/Vomiting: Absent Respiratory: Satisfactory Pain: Controlled Complications: Absent Post Op Complications Complications None Follow Up Care/Instructions Patient Instructions None needed. Anesthesia/Patient Condition Patient Condition Patient is doing well, no complaints, stable vital signs, no apparent adverse anesthesia problems. No complications reported per nursing. KIERA NIEVES CRNA Oct 19, 2017 14:34
[2017-10-19] MEDS ORDERED: oxyCODONE/APAP 5/325MG (PERCOCET 5) TABLET ONE (14:39)
[2017-10-19 14:55] VITALS: BP 114/72
[2017-10-19 15:35] VITALS: BP 115/76
[2017-10-19 16:00] VITALS: BP 115/76
--- NOTE | 2017-10-19 22:34 | OPERATIVE REPORT ---
DATE OF SERVICE: 10/19/2017 PREOPERATIVE DIAGNOSES: Abdominal wall mass and abdominal wall pain. POSTOPERATIVE DIAGNOSES: Abdominal wall mass and abdominal wall pain with pathology pending. OPERATIVE PROCEDURE: Exploratory laparotomy through Pfannenstiel incision with resection of soft tissue masses. OPERATIVE DESCRIPTION: With the patient in the supine position under satisfactory general anesthesia, she was remained supine and was prepped and draped in usual fashion for abdominal surgery. The patient had a Pfannenstiel incision that was quite retracted forming the divot secondary to scar tissue. The right lateral portion of this scar was had associated nodular masses subcutaneously that were very firm, very fibrotic and relatively immobile. This was the site of the patient's pain. She had probably 0.5 cm to little bit more than that of cicatrix across the width and breath of the Pfannenstiel incision. An elliptical incision was made across the abdomen, total height of about a centimeter allowing for removal of the entire scar. The right lateral portion of the scar had associated chronic erythema and ulceration that area was tagged with a staple and sent to pathology for permanent section. Dissection then was carried subcutaneously to free the skin edges and resolved the scar retraction and divot. With that done, the skin edges free. Hemostasis was achieved with electrocautery and then a nodular mass was palpable in the lateral 20% of this scar subcutaneously. Dissection was carried down through the Ricardo's and Camper's fascia down to the rectus fascia and then undermining the nodular mass and removing that piece of tissue intact. There was a second larger deeper mass from the mid portion of the incision laterally to 80% [address] way across the incision. A very extensive dissection was carried down to the fascia and through the fascia onto the rectus muscles for removal of this nodular mass that was sent to the pathology separately. The fascia was then reapproximated with interrupted sutures of 2-0 Vicryl, ensuring hemostasis in the process. The fascia was opened probably approximately 6 cm across. With the fascia reapproximated, subcutaneous tissue sutures were placed in the Ricardo's and Camper's fascia to obliterate the incisional cavity and then another layer of suture was placed deep to the subcuticular area for reapproximation and take tension off of the skin edges. The skin edges were then carefully stapled. The good cosmetic effect was achieved with resolution of the divot. Again, the subcutaneous tissue was sent to pathology for permanent section, did appear on opening the second nodular mass that it contained endometriosis and endometriomas. The patient tolerated the procedure well. Estimated blood loss was between 50 and 100 mL. Sponge and needle counts were correct on completion of the procedure. The patient was uneventfully awakened from general anesthesia and transferred to recovery room in stable condition with plans for discharge home PAR. Job ID: [id number] DocumentID: [id number] Dictated Date: 10/19/2017 13:20:30 Rock Worker Date: 10/19/2017 22:32:57 Dictated By: CARLI BARBOSA MD [facility]
== END 2017-10-19 16:00 | disposition home or self-care (01) ==
LOC: SDC 10:37
PROVIDERS: ATTEND Obstetrics & Gynecology
DX: L90.5 Scar conditions and fibrosis of skin (principal); N80.6 Endometriosis in cutaneous scar; Z87.891 Personal history of nicotine dependence
CPT/HCPCS: 36415; 84703; 85025; 87081

== ENCOUNTER 2019-02-17 05:31 | Outpatient (CLI) | payer MEDICAID ==
[~2019-02-17] VITALS: Ht 157 cm; Wt 91.3 kg
[~2019-02-17 05:31] MED LIST changes: +IBUP-1780 PO; +OXYC-471 PO; +TOPI50TA37 PO
[2019-02-17] MEDS ORDERED: LEVO150T6 PO (09:16)
[2019-02-17] MEDS ORDERED: PREN1TAB79 PO (09:16)
== END 2019-02-17 09:35 | disposition home or self-care (01) ==
LOC: PREOP 05:31
PROVIDERS: ATTEND Obstetrics & Gynecology
DX: Z01.818 Encounter for other preprocedural examination (principal)

== ENCOUNTER 2019-02-23 08:47 | Inpatient (IN) | payer MEDICAID ==
[~2019-02-23] VITALS: Ht 157.5 cm; Wt 92.2 kg
[2019-02-23] VITALS (10 sets, daily range): BP systolic 118–141; BP diastolic 66–87
[~2019-02-23 08:47] MED LIST changes: +LEVO150T6 PO; +PREN1TAB79 PO
--- NOTE | 2019-02-23 08:55 | NUR ---
Arrived to unit ambulates self accompanied by kids and . pt here for repeat . Wt obtained and to room 315. gowned and urine sample obtained. To bed and oriented to room, call light and surroundings. plan of care reviewed with pt and at bedside.
[2019-02-23] MEDS ORDERED: LACTATED RINGERS 1,000 ML IV PRN ×2 (09:06)
[2019-02-23] MEDS ORDERED: CATHETER FLUSH 10 ML SYR IV PRN (09:15)
[2019-02-23] MEDS ORDERED: CITRIC ACID/SOB CIT (BICITRA) 30 ML UDC PO ONE (09:15)
[2019-02-23] MEDS ORDERED: ceFAZolin 2 GM IV Premixed 50 ML IV ONE (09:15)
[2019-02-23] MEDS ORDERED: METOCLOPRAMIDE INJ 10 MG/2 ML (REGLAN) IV ONE (09:15)
[2019-02-23] MEDS ORDERED: metroNIDAZOLE 500MG/100ML IVPB 100 ML IV ONE (09:15)
[2019-02-23] MEDS ORDERED: FAMOTIDINE 20MG/2ML IV (PEPCID) IV ONE (09:15)
[2019-02-23] MEDS ORDERED: FAMO20TA45 PO (09:23)
[2019-02-23 10:26] LABS: BASOPHILS % (AUTO) 0 % (0-10); EOSINOPHILS # (AUTO) 0.4 10^3/uL (0.0-0.3); EOSINOPHILS % (AUTO) 3 % (0-10); HEMATOCRIT 38 % (35-52); HEMOGLOBIN 13.1 G/DL (11.5-16.0); LYMPHOCYTES # (AUTO) 1.9 X 10^3 (1.0-4.0); LYMPHOCYTES % (AUTO) 16 % (12-44); MEAN CORPUSCULAR HEMOGLOBIN 30 PG (25-34); MEAN CORPUSCULAR HGB CONC 34 G/DL (32-36); MEAN CORPUSCULAR VOLUME 87 FL (80-99); MEAN PLATELET VOLUME 10.5 FL (7.4-10.4); MONOCYTES # (AUTO) 0.8 X 10^3 (0.0-1.0); MONOCYTES % (AUTO) 6 % (0-12); NEUTROPHILS # (AUTO) 8.7 X 10^3 (1.8-7.8); NEUTROPHILS % (AUTO) 74 % (42-75); PLATELET COUNT 227 10^3/uL (130-400); RED CELL DISTRIBUTION WIDTH 13.3 % (10.0-14.5); WHITE BLOOD COUNT 11.7 10^3/uL (4.3-11.0)
[2019-02-23 10:48] LABS: ALANINE AMINOTRANSFERASE 8 U/L (0-55); ALBUMIN 3.7 GM/DL (3.2-4.5); ALKALINE PHOSPHATASE 119 U/L (40-136); BILIRUBIN,TOTAL 0.6 MG/DL (0.1-1.0); BUN/CREATININE RATIO 11; CALCIUM 9.5 MG/DL (8.5-10.1); CARBON DIOXIDE 18 MMOL/L (21-32); CHLORIDE 108 MMOL/L (98-107); CREATININE SERUM 0.66 MG/DL (0.60-1.30); GFR ESTIMATED > 60; GLUCOSE 90 MG/DL (70-105); SODIUM 138 MMOL/L (135-145)
[2019-02-23] MEDS ORDERED: OXYTOCIN/NORMAL SALINE 1,000 ML IV ONE (11:12)
[2019-02-23] MEDS ORDERED: fentaNYL INJECTION 100 MCG/2 ML AMP ONE (11:16)
[2019-02-23] MEDS ORDERED: ceFAZolin 2 GM IV Premixed 50 ML ONE (11:55)
--- NOTE | 2019-02-23 13:05 | NUR ---
monitors off. pt up to void. ambulates to OR accompanied by OR staff.
--- NOTE | 2019-02-23 13:12 | History & Physical ---
History and Physical Date Seen by Provider: Feb 23, 2019 Time Seen by Provider: 13:09 This patient is a 27-year-old 1 A1 white female with an EDC of 12 119 her at 38+ weeks gestation. She presents now for repeat delivery after being seen in the office and found to have elevated blood pressure increased DTRs headache like she's not had before and complaint of contractions. She also complained of leaking fluid but nitrazine was negative. Her GBS culture after 35 weeks gestation was negative. Allergies are none Medications are vitamins levothyroxin Medical social and surgical histories are per the antepartum record HEENT exam is normal Neck is supple no lymphadenopathy no thyromegaly Abdomen is gravid soft nontender nondistended Extremities show no clubbing cyanosis. There is no Homans sign. DTRs were 3+ to 4/4 globally. Pelvic exam is deferred Laboratory Tests Test 02/23/19 09:10 02/23/19 10:10 Range/Units Urine Protein 7 6-12 MG/DL Urine Creatinine 64 30-125 MG/DL Urine Protein/Creatinine Ratio 0.11 White Blood Count 11.7 H 4.3-11.0 10^3/uL Red Blood Count 4.38 4.35-5.85 10^6/uL Hemoglobin 13.1 11.5-16.0 G/DL Hematocrit 38 35-52 % Mean Corpuscular Volume 87 80-99 FL Mean Corpuscular Hemoglobin 30 25-34 PG Mean Corpuscular Hemoglobin Concent 34 32-36 G/DL Red Cell Distribution Width 13.3 10.0-14.5 % Platelet Count 227 130-400 10^3/uL Mean Platelet Volume 10.5 H 7.4-10.4 FL Neutrophils (%) (Auto) 74 42-75 % Lymphocytes (%) (Auto) 16 12-44 % Monocytes (%) (Auto) 6 0-12 % Eosinophils (%) (Auto) 3 0-10 % Basophils (%) (Auto) 0 0-10 % Neutrophils # (Auto) 8.7 H 1.8-7.8 X 10^3 Lymphocytes # (Auto) 1.9 1.0-4.0 X 10^3 Monocytes # (Auto) 0.8 0.0-1.0 X 10^3 Eosinophils # (Auto) 0.4 H 0.0-0.3 10^3/uL Basophils # (Auto) 0.0 0.0-0.1 10^3/uL Sodium Level 138 135-145 MMOL/L Potassium Level 4.0 3.6-5.0 MMOL/L Chloride Level 108 H 98-107 MMOL/L Carbon Dioxide Level 18 L 21-32 MMOL/L Anion Gap 12 5-14 MMOL/L Blood Urea Nitrogen 7 7-18 MG/DL Creatinine 0.66 0.60-1.30 MG/DL Estimat Glomerular Filtration Rate > 60 BUN/Creatinine Ratio 11 Glucose Level 90 70-105 MG/DL Calcium Level 9.5 8.5-10.1 MG/DL Corrected Calcium 9.7 8.5-10.1 MG/DL Total Bilirubin 0.6 0.1-1.0 MG/DL Aspartate Amino Transf (AST/SGOT) 11 5-34 U/L Alanine Aminotransferase (ALT/SGPT) 8 0-55 U/L Alkaline Phosphatase 119 40-136 U/L Lactate Dehydrogenase 165 125-220 U/L Total Protein 7.0 6.4-8.2 GM/DL Albumin 3.7 3.2-4.5 GM/DL Assessment and plan term at 38+ weeks gestation with PIH and concern for progressing to preeclampsia as well as regular contractions consistent with latent labor with a previous . Patient is admitted now for planned for repeat delivery 38 weeks with PIH and previous Allergies and Home Medications Allergies Coded Allergies: No Known Drug Allergies (Unverified , 10/14/17) Home Medications Famotidine 20 Mg Tablet, 20 MG PO DAILY, (Reported) Levothyroxine Sodium 150 Mcg Tablet, 150 MCG PO DAILY, (Reported) Linaclotide 72 Mcg Capsule, 72 MCG PO DAILY PRN for CONSTIPATION-1ST LINE, (Reported) Vit W-Ca,Fe,FA(<1 mg) 1 Each Tablet, 1 EACH PO DAILY, (Reported) Patient Home Medication List Home Medication List Reviewed: Yes Clinical Quality Measures DVT/VTE Risk/Contraindication: Risk Factor Score Per Nursin RFS Level Per Nursing on Admit: 1=Low/No VTE PPX CARLI BARBOSA MD Feb 23, 2019 13:12 POS
[2019-02-23] MEDS ORDERED: OXYC1TAB12 PO (13:14)
[2019-02-23] MEDS ORDERED: DOCU-143 PO (13:14)
[2019-02-23] MEDS ORDERED: IBUP-1780 PO (13:14)
--- NOTE | 2019-02-23 13:14 | Discharge Instructions ---
Discharge Instructions Discharge Medications New, Converted or Re-Newed RX: RX on Chart Patient Instructions Return to The Hospital For: As directed Activity & Diet Discharge Diet: No Restrictions Activity as Tolerated: No Orders-Post D/C & Referrals Follow Up Appt: RTC 1 week for incision check. Call to make follow up appt. for patient in 4 weeks. Wound Care: Remove karlie, apply benzoin and steri strips. Activity Per routine post instructions. Please call in RX to patient pharmacy. Diet as tolerated Patient may shower or tub bathe as desired. Continue home meds CARLI BARBOSA MD Feb 23, 2019 13:14 POS
[2019-02-23] MEDS ORDERED: BUPIVACAINE 0.5% 30 ML (SENSORCAINE) VIAL ONE (13:46)
[2019-02-23] MEDS: OXYTOCIN/NORMAL SALINE 500 ML IV SCH ×2 (14:02→16:48)
[2019-02-23] MEDS ORDERED: D5 LR IV SOLUTION 1,000 ML IV SCH (14:23)
[2019-02-23] MEDS ORDERED: ONDANSETRON 4 MG/2 ML (SDV) Z0FRAN IVP PRN (14:30)
[2019-02-23] MEDS ORDERED: diphenhydrAMINE 50 MG/ML INJ (BENADRYL) IVP PRN (14:30)
[2019-02-23] MEDS ORDERED: MEASLES,MUMPS,RUBELLA 1 EA INJ SC ONE (14:30)
[2019-02-23] MEDS ORDERED: TETANUS,DIPTH,PERTUSS P/F (BOOSTRIX) 0.5 ML VIAL IM ONE (14:30)
[2019-02-23] MEDS ORDERED: diphenhydrAMINE 50 MG/ML INJ (BENADRYL) ONE (14:48)
[2019-02-23] MEDS ORDERED: KETOROLAC 30 MG/ML VIAL ONE (14:48)
[2019-02-23] MEDS: KETOROLAC 30 MG/ML VIAL IVP SCH ×2 (14:56→20:52)
--- NOTE | 2019-02-23 15:55 | NUR ---
Wheeled to [facility] in bed to see before transfer to [facility]. at bedside.
--- NOTE | 2019-02-23 16:33 | NUR ---
pt wheeled back to room from [facility]. family at bedside. pt requests cold tray at this time.
[2019-02-23] MEDS: oxyCODONE/APAP 10/325MG (PERCOCET 10) TABLET PO PRN ×2 (16:48→19:57)
--- NOTE | 2019-02-23 18:05 | NUR ---
Assisted up to bathroom, void, pericare and pad changed. pt assisted out of gown and into own clothes. Back to bed. fresh ice water to bedside table.
--- NOTE | 2019-02-23 18:33 | OPERATIVE REPORT ---
DATE OF SERVICE: 02/23/2019 PREOPERATIVE DIAGNOSES: Term at 38+ weeks gestation with PIH and a previous in latent labor. POSTOPERATIVE DIAGNOSES: Term at 38+ weeks gestation with PIH and a previous in latent labor. OPERATIVE PROCEDURE: Repeat low transverse delivery of a viable male with Apgars of and 1, 6, and 9 at 1, 5 and 10 minutes. Weight of 7 pounds 13 ounces, time of 13:35 and a cord blood pH was 7.25. OPERATIVE DESCRIPTION: With the patient in the supine position under satisfactory spinal anesthesia, she was prepped and draped in the usual fashion for abdominal surgery. A Pfannenstiel incision was made through the skin with a scalpel at the site, approximately 4 to 5 cm inferior to the patient's previous transverse abdominal skin incision. This was a Pfannenstiel incision. It was carried through and to the abdominal cavity in the usual manner. Bladder retractor placed in position and then a clean scalpel was used to make a 4 cm hysterotomy incision transversely across the lower uterine segment. Clear fluid was released on hysterotomy. An incision was extended by blunt dissection. Moy forceps were applied to facilitate delivery of a vigorous viable male with stats as noted above. The infant was bulb suctioned on delivery of the head. Initially, the infant had spontaneous respirations, had good tone, moved all extremities and the pulse was over 100. The patient decompensated a bit as was taken to the warmer again with the Apgars as noted above. The umbilical cord was doubly clamped and cut and then the was passed to the pediatric nurse in attendance for delivery. Cord bloods were obtained. Placenta delivered spontaneously Hagen. It was normal with a 3-vessel cord. The uterus was exteriorized and interior wiped clean with a wet laparotomy sponge. Uterine incision was then closed with a running locked suture of 2-0 Vicryl. Hemostasis was complete. The uterus was returned to abdominal cavity. All blood clot and debris was removed from the abdominal cavity. With sponge, needle counts correct, hemostasis assured, the anterior parietal peritoneum was closed with running suture of 2-0 Vicryl. The rectus muscles were closed with 2-0 Vicryl. The rectus fascia with 2-0 Vicryl, subcutaneous tissue with 2-0 Vicryl and the skin was stapled. Sponge and needle counts were correct on completion of the procedure. Estimated blood loss was around 300 mL. The patient tolerated the procedure well and was transferred to recovery room in stable condition. The had been taken stable to the full term nursery under the care of Dr. Piedra, who was summoned to evaluate the baby. Job ID: [id number] DocumentID: [id number] Dictated Date: 02/23/2019 14:02:35 Pants Busheler Date: 02/23/2019 18:32:31 Dictated By: CARLI BARBOSA MD
[2019-02-23] MEDS: DOCUSATE SODIUM 100 MG (COLACE) CAP PO SCH (19:57)
[2019-02-23] MEDS ORDERED: DOCUSATE SODIUM 100 MG (COLACE) CAP PO SCH (21:00)
[2019-02-24 04:08] VITALS: BP 131/88
[2019-02-24] MEDS: KETOROLAC 30 MG/ML VIAL IVP SCH (04:08)
[2019-02-24] MEDS: oxyCODONE/APAP 10/325MG (PERCOCET 10) TABLET PO PRN (05:06)
--- NOTE | 2019-02-24 08:06 | Anesthesia-Regional Post-Op ---
Regional Patient Condition Mental Status: Alert, Oriented x3 Circulation: Same as Pre-Op Headache: Absent Sensation: Full Recovery Motor Block: Absent Post Op Complications Complications None Follow Up Care/Instructions Patient Instructions None needed. Anesthesia/Patient Condition Patient is doing well, no complaints, stable vital signs, no apparent adverse anesthesia problems. No complications reported per nursing. D/C home per [facility] Criteria: JESICA Kendrick CRNA Feb 24, 2019 08:06 POS
--- NOTE | 2019-02-24 08:45 | Progress Note ---
Standard Progress Note Progress Notes/Assess & Plan Date Seen by a Provider: Feb 24, 2019 Time Seen by a Provider: 08:43 Progress/Assessment & Plan This patient is without complaint. She is ambulating, voiding, tolerating oral intake well has good pain control. Patient is requesting discharge home. Vital Signs Date Time Temp Pulse Resp B/P (MAP) Pulse Ox O2 Delivery O2 Flow Rate FiO2 02/24/19 04:08 36.7 80 16 131/88 (102) 98 Room Air 02/23/19 22:10 36.9 80 16 121/76 (91) 100 Room Air 02/23/19 16:11 37.1 63 16 141/77 (98) 100 Room Air 02/23/19 16:07 Room Air 02/23/19 15:30 37.2 65 16 136/77 (96) 100 Room Air 02/23/19 15:00 Room Air 02/23/19 15:00 36.9 16 126/87 (100) 100 Room Air 02/23/19 14:56 36.5 02/23/19 14:45 36.6 16 118/77 (91) 100 Room Air 02/23/19 14:45 Room Air 02/23/19 14:30 Room Air 02/23/19 14:30 36.6 16 120/70 (87) 100 Room Air 02/23/19 14:15 36.5 16 121/71 (88) 98 Room Air 02/23/19 14:15 Room Air 02/23/19 14:02 36.5 16 122/66 (84) 97 Room Air 02/23/19 14:02 Room Air 02/23/19 11:05 77 16 135/83 (100) Room Air 02/23/19 09:16 36.6 71 16 132/84 (100) 98 Room Air 02/23/19 09:16 36.6 71 16 98 Room Air I & O 02/24/19 07:00 Intake Total 2040 ml Output Total 950 ml Balance 1090 ml Vital signs are stable. Patient is afebrile. Fundus is firm below the umbilicus and nontender. The surgical incision is clean dry and intact. Extremities show no clubbing cyanosis. There is no Homans sign. Assessment and plan 1 status post delivery doing well. This patient's baby was transferred to [facility]. Patient will be discharged home today so that she might follow her baby Final Diagnosis 38 week repeat CARLI BARBOSA MD Feb 24, 2019 08:45 POS
[2019-02-24 09:00] VITALS: BP 125/89
[2019-02-24] MEDS: DOCUSATE SODIUM 100 MG (COLACE) CAP PO SCH (09:00)
--- NOTE | 2019-02-24 09:03 | NUR ---
dismissal instructions given to pt, verbalizes understanding. reviewed dismissal Rx's and follow up appointment. signature page signed, placed on chart.
--- NOTE | 2019-02-24 09:10 | NUR ---
pt ambulated to private vehicle with this RN and brother @ side. pt stable with no sx's of distress noted.
[2019-02-24] MEDS ORDERED: IBUPROFEN 800 MG (MOTRIN) TAB PO SCH (14:30)
== END 2019-02-24 09:10 | disposition home or self-care (01) | DRG 788 ==
LOC: LDRP 08:47
PROVIDERS: ADMIT Obstetrics & Gynecology; ATTEND Obstetrics & Gynecology
PROC: 10D00Z1 Extraction of Products of Conception, Low, Open Approach (ICD-10-PCS; principal; 2019-02-23 13:08)
DX: O13.4 Gestational [pregnancy-induced] hypertension without significant proteinuria, complicating childbirth (principal); O34.211 Maternal care for low transverse scar from previous cesarean delivery; Z3A.38 38 weeks gestation of pregnancy; Z37.0 Single live birth
CPT/HCPCS: 36415; 80053; 82570; 83615; 84156; 85025; 86850; 86900; 86901; 87081; 94664

== ENCOUNTER 2019-04-14 05:37 | Outpatient (CLI) | payer MEDICAID ==
[~2019-04-14] VITALS: Ht 160 cm; Wt 82.2 kg
[~2019-04-14 05:37] MED LIST changes: +DOCU-143 PO; +FAMO20TA45 PO; +OXYC1TAB12 PO
[2019-04-20] MEDS ORDERED: DOCU-143 PO (11:54)
[2019-04-20] MEDS ORDERED: OXYC1TAB87 PO (11:54)
[2019-04-20] MEDS ORDERED: IBUP-1780 PO (11:54)
== END 2019-04-14 15:01 | disposition home or self-care (01) ==
LOC: PREOP 05:37
PROVIDERS: ATTEND Obstetrics & Gynecology
DX: Z01.818 Encounter for other preprocedural examination (principal)